=== PATIENT | male | born 1960 | race Caucasian/White ===

== ENCOUNTER 2020-07-19 10:28 | Outpatient (REF) | payer OTHER, SELFPAY ==
[2020-07-19 13:22] LABS: Vitamin B12 777 pg/mL (200-900)
== END 2020-07-19 10:29 | disposition home or self-care (01) ==
LOC: HO.LAB 10:28
PROVIDERS: Visit Provider Psychiatry & Neurology Neurology
DX: G93.40 Encephalopathy, unspecified (principal)
CPT/HCPCS: 36415; 82607

== ENCOUNTER 2024-12-12 21:53 | Emergency (ER) | payer OTHER, SELFPAY ==
[2024-12-12 21:57] VITALS: BP 144/84; PULSE 77; O2SAT 97
[2024-12-12 21:58] VITALS: BP 168/72; PULSE 89; RESP 20; TEMP 37.1; O2SAT 99; BMI 42.8
--- OUTSIDE RECORDS SUMMARY | 2024-12-13 01:25 | XMS_ITS | Encounter Summary ---
Author Organization [facility] Address [address] [place] [address] Care Team Providers Care Intake Man Name Role Phone Heaven Sherman MD Primary Care Provider Nawaf Arrieta MD Unavailable [phone] Vanesa Juárez NP Unavailable [phone] Nicole Conroy Primary Care Provider Emily verdugo Encounter Details Date Type Department Care Team Description 02/28/2023 [facility] Medical Records [address] [place] [address] Social History Tobacco Use Types Packs/Day Years Used Date Smoking Tobacco: Some Days Cigarettes 1 30 Last attempted to quit: 01/16/2011 Vapor Passive Smoke Exposure: Past Smokeless Tobacco: Never Comments:Vapes occasionally Alcohol Use Standard Drinks/Week Comments Yes 0 (1 standard drink = 0.6 oz pur e alcohol) occ Sex Assigned at Date Recorded Not on file documented as of this encounter Plan of Treatment Not on file documented as of this encounter Procedures Procedure Name Priority Date/Time Associated Diagnosis Comments OUTSIDE VASCULAR STUDY Routine 02/28/2023 documented in this encounter Results * OUTSIDE VASCULAR STUDY (02/28/2023) Provider Abstract CARDIOLOGY documented in this encounter Visit Diagnoses Not on filedocumented in this encounter Care Teams Intake Man Relationship Specialty Start Date End Date Heaven Sherman MD PCP - General Internal Medicine 08/03/22 07/06/24 Nicole Conroy [address] [place] [address] [address] [place] [address] PCP - General Internal Medicine 07/07/24 Nawaf Austin MD [address] [place] [address] [address] [place] [address] Knife Edger Cardiovascular Disease 02/06/23 Vanesa Juárez NP [address] [place] [address] DRIVE [address] [place], [place] [id number] Nurse Practitioner Cardiology 07/07/24 documented as of this encounter"
--- OUTSIDE RECORDS SUMMARY | 2024-12-13 01:25 | XMS_ITS | Encounter Summary ---
Author Organization [facility] Address [address] [place] [address] Care Team Providers Care Baker Bench Name Role Phone Heaven Sherman MD Primary Care Provider Gladis Brooks Primary Care Provider Heaven Morales MD Primary Care Provider Unavaila Juana Markham MD Primary Care Provider [phone] Heaven Sherman MD Primary Care Provider Unavaila Nawaf Rodriguez MD Unavailable [phone] Vanesa Juárez NP Unavailable [phone] Nicole Conroy Primary Care Provider Unavaila lucina Encounter Details Date Type Department Care Team Description 11/16/2015 Hospital Medical Records [address] [place] [address] Tello Mendez Social History Tobacco Use Types Packs/Day Years [...] on file documented as of this encounter Visit Diagnoses Not on filedocumented in this encounter Care Teams Baker Bench Relationship Specialty Start Date End Date Heaven Sherman MD PCP - General Internal Medicine 11/2/15 2/27/17 [facility], Pcp PCP - General Internal Medicine 12/12/16 08/12/18 Heaven Sherman MD PCP - General Internal Medicine 08/13/18 01/03/21 Juana Levy MD [address] [place] [address] PCP - General Internal Medicine 01/04/21 08/02/22 Heaven Sherman MD [address] [place] [address] PCP - General Internal Medicine 08/03/22 07/06/24 Nicole Conroy [address] [place] [address] [address] [place] [address] PCP - General Internal Medicine 07/07/24 Nawaf Austin MD [address] [place] [address] [address] [place] [address] Electric Organ Inspector And Repairer Cardiovascular Disease 02/06/23 Vanesa Juárez NP [address] [place] [address] [address]IVE [address] [place] [address] Nurse Practitioner Cardiology 07/07/24 documented as of this encounter
--- OUTSIDE RECORDS SUMMARY | 2024-12-13 01:25 | XMS_ITS | Encounter Summary ---
Author Organization [facility] Address [address] [place] [address] Care Team Providers Care Camera Operator Name Role Phone Juana Levy MD Primary Care Provider [phone] Heaven Sherman MD Primary Care Provider Unavaila Nawaf Rodriguez MD Unavailable [phone] Vanesa Juárez NP Unavailable [phone] Nicole Conroy Primary Care Provider Unavaila lucina Encounter Details Date Type Department Care Team Description 01/23/2022 Orders Only Medical Records [address] [place] [address] Jorge Luis Freed MD [address] [place] [address] [address] [place], [place] [id number] Social History Tobacco Use Types Packs/Day Years Used Date Smoking Tobacco: Former Cigarettes 1 30 Q uit: 01/16/2011 Smokeless Tobacco: Never Comments:started smoking at 15 Alcohol Use Standard Drinks/Week Comments No 0 (1 standard drink = 0.6 oz pur e alcohol) Sex Assigned at Date Recorded Not on file COVID-19 Exposure Response Date Recorded In the last 10 days, have yo u been in contact with someone who was confirmed or suspected to have Coronavirus/COVID-19? No / Unsure 01/02/2022 9:51 AM EDT documented as of this encounter Plan of Treatment Not on file documented as of this encounter Procedures Procedure Name Priority Date/Time Associated Diagnosis Comments OUTSIDE PATHOLOGY Routine 01/11/2022 documented in this encounter Results * OUTSIDE PATHOLOGY (01/11/2022) Jorge Luis Freed MD OUTSIDE LAB documented in this encounter Visit Diagnoses Not on filedocumented in this encounter Care Teams Camera Operator Relationship Specialty Start Date End Date Juana Levy MD [address] [place] [address] PCP - General Internal Medicine 01/04/21 08/02/22 Heaven Sherman MD [address] [place] [address] PCP - General Internal Medicine 08/03/22 07/06/24 Nicole Conroy [address] [place] [address] [address] [place] [address] PCP - General Internal Medicine 07/07/24 Nawaf Austin MD [address] [place] [address] [place] [address] Label Stitcher Cardiovascular Disease 02/06/23 Vanesa Juárez NP [address] [place] [address] [address] [place] [address] Nurse Practitioner Cardiology 07/07/24 documented as of this encounter
--- OUTSIDE RECORDS SUMMARY | 2024-12-13 01:25 | XMS_ITS | Encounter Summary ---
Author Organization [facility] Address [address] [place] [address] Care Team Providers Care Munitions Factory Worker Name Role Phone Hood Ernst MD Primary Care Provider Unavail able Heaven Sherman MD Primary Care Provider Unavaila lucina Cabrera, Pcp Primary Care Provider UnavailHeaven Morales MD Primary Care Provider Unavaila ble Juana Levy MD Primary Care Provider [phone] Heaven Sherman MD Primary Care Provider Unavaila Nawaf Rodriguez MD Unavailable [phone] Vanesa Juárez NP Unavailable [phone] Nicole Conroy Primary Care Provider Unavaila ble Encounter Details Date Type Department Care Team Description 06/23/2015 Hospital Medical Records [address] [place] [address] Tea Brandt MD Social History Tobacco Use Types Packs/Day Years [...] on filedocumented in this encounter Care Teams Munitions Factory Worker Relationship Specialty Start Date End Date Hood Ernst MD PCP - General 01/02/00 08/15/15 Heaven Sherman MD PCP - General Internal Medicine 08/16/15 12/11/16 [facility], Pcp PCP - General Internal Medicine 12/12/16 08/12/18 Heaven Sherman MD PCP - General Internal Medicine 08/13/18 01/03/21 Juana Levy MD [address] [place] [address] PCP - General Internal Medicine 01/04/21 08/02/22 Heaven Sherman MD [address] [place] [address] PCP - General Internal Medicine 08/03/22 07/06/24 Nicole Conroy [address] [place] [address] [address] [place] [address] PCP - General Internal Medicine 07/07/24 Nawaf Austin MD [address] [place] [address] [address] [place] [address] Boilers Inspector Cardiovascular Disease 02/06/23 Vanesa Juárez NP [address] [place] [address] [address] [place] [address] Nurse Practitioner Cardiology 07/07/24 documented as of this encounter
--- OUTSIDE RECORDS SUMMARY | 2024-12-13 01:25 | XMS_ITS | Encounter Summary ---
Author Organization [facility] Address [address] [place] [address] Care Team Providers Care Director Of Corporate Marketing Name Role Phone Hood Ernst MD Primary Care Provider Unavail able Heaven Sherman MD Primary Care Provider Unavaila Gladis Teague Primary Care Provider Heaven Morales MD Primary Care Provider Unavaila Juana Markham MD Primary Care Provider [phone] Heaven Sherman MD Primary Care Provider Unavaila Nawaf Rodriguez MD Unavailable Vanesa Juárez NP Unavailable [phone] Nicole Conroy Primary Care Provider Unavaila lucina Encounter Details Date Type Department Care Team Description 04/30/2009 [facility] Medical Records [address] [place] [address] Social History Tobacco Use Types Packs/Day Years [...] on filedocumented in this encounter Care Teams Director Of Corporate Marketing Relationship Specialty Start Date End Date Hood Ernst MD PCP - General 01/02/00 08/15/15 Heaven Sherman MD PCP - General Internal Medicine 08/16/15 12/11/16 [facility], Pcp PCP - General Internal Medicine 12/12/16 08/12/18 Heaven Sherman MD PCP - General Internal Medicine 08/13/18 01/03/21 Juana Levy MD [address] [place] [address] PCP - General Internal Medicine 01/04/21 08/02/22 Heaven Sherman MD [address] [place] [address] PCP - General Internal Medicine 08/03/22 07/06/24 Nicole Conroy [address] [place] [address] [address] [place] [address] PCP - General Internal Medicine 07/07/24 Nawaf Austin MD [address] [place] [address] [address] [place] [address] Denitrator Cardiovascular Disease 02/06/23 Vanesa Juárez NP [address] [place] [address] [address] [place] [address] Nurse Practitioner Cardiology 07/07/24 documented as of this encounter
--- OUTSIDE RECORDS SUMMARY | 2024-12-13 01:25 | XMS_ITS | Encounter Summary ---
Author Organization [facility] Address [address] [place] [address] Care Team Providers Care Vet Assistant Name Role Phone Heaven Sherman MD Primary Care Provider Unavaila lucina Cabrera, Pcp Primary Care Provider UnavailHeaven Morales MD Primary Care Provider Unavaila Juana Markham MD Primary Care Provider [phone] Heaven Sherman MD Primary Care Provider Unavaila ble Nawaf Austin MD Unavailable [phone] Vanesa Juárez NP Unavailable [phone] Nicole Conroy Primary Care Provider Unavaila ble Encounter Details Date Type Department Care Team Description 08/31/2015 Hospital Medical Records [address] [place] [address] Robbin Mazariegos [address] [place] [address], [address] [place] [address] Social History Tobacco Use Types Packs/Day Years Used Date Smoking Tobacco: Some Days Cigarettes 30 Last attempted to quit: 01/16/2011 Vapor [...] on filedocumented in this encounter Care Teams Vet Assistant Relationship Specialty Start Date End Date Heaven Sherman MD PCP - General Internal Medicine 08/16/15 12/11/16 [facility] PCP - General Internal Medicine 12/12/16 08/12/18 Heaven Sherman MD PCP - General Internal Medicine 08/13/18 01/03/21 Juana Levy MD [address] [place] [address] PCP - General Internal Medicine 01/04/21 08/02/22 Heaven Sherman MD [address] [place] [address] PCP - General Internal Medicine 08/03/22 07/06/24 Nicole Conroy [address] [place] [address] [address] [place] [address] PCP - General Internal Medicine 07/07/24 Nawaf Austin MD [address] [place] [address] [address] [place] [address] Production Sampler Cardiovascular Disease 02/06/23 Vanesa Juárez NP [address] [place] [address] [address] [place] [address] Nurse Practitioner Cardiology 07/07/24 documented as of this encounter
--- OUTSIDE RECORDS SUMMARY | 2024-12-13 01:25 | XMS_ITS | Encounter Summary ---
Author Organization [facility] [place] [address] Care Team Providers Care Counter Attendant Name Role Phone Nicole Conroy MD Primary Care Provider Reason for Visit * Reason Onset Date Comments Hypotension 10/17/2024 blood pressure 10/17/2024 Blood pressure Encounter Details Date Type Department Care Team (Late st Contact Info) Description 10/17/2024 Telephone [facility] [address] [place] [address] Nawaf Austin MD [address] [place] [address] [address] [place], [place] [id number] Hypotension; blood pressure (Blood pressure ) Social History Tobacco Use Types Packs/Day Years Used Date Smoking Tobacco: Former Cigarettes Q uit: 01/16/2011 Smokeless Tobacco: Never Alcohol Use Standard Drinks/Week Comments Yes 0 (1 standard drink = 0.6 oz pur e alcohol) rarely Interpersonal Safety Answer Date Record ed Physical Abuse 11/04/2024 Verbal Abuse 11/04/2024 Sex and Gender Information Value Date Recorded Sex Assigned at Male 11/04/2024 12:07 PM EST Legal Sex Male 2:23 AM EST Gender Identity Male 11/04/2024 12:07 PM EST Sexual Orientation Not on file documented as of this encounter Progress Notes * Nawaf Austin MD - 10/27/2024 5:44 PM EST Patient's had several CAT scans of the abdomen including the kidneys with no evidence of masses. Patient is also been seen by his urologist * Nawaf Austin MD - 10/23/2024 4:01 PM EST Patient's ultrasound of his kidney showed a slight vascular mass he is scheduled to see urology this week. He is also noted to have a blood pressure 130 systolic today * Grace Sumner RN - 10/21/2024 4:17 PM EST ANUMI... I spoke to Roberto Carlos. He stopped taking Oxycodone for back pain as he was afraid it was lowering his BP too much. Pt self increased Losartan back to 50 mg daily over the weekend for elevated BP. He provided some readings from Sunday and Sunday with no exact times- BP 158/86, HR 84 bpm, BP 152/93, HR 87 bpm, BP 156/87, HR 87 bpm. I advised pt that increased pain can cause elevated blood pressures and that he should contact the prescriber of the Oxycodone to see if an alternative medicationcan be prescribed. Today, pt was cleaning his kitchen, heard a snap, then experienced severe back pain. His BP 30 minutes ago was 170/100. He denies chest discomfort, shortness of breath, and sudden vision changes. Pt reports worsening tinnitus today. Roberto Carlos informed me he is planning on going to [facility] this evening for evaluation of back pain. * Vaishali Martinez - 10/21/2024 3:53 PM EST Roberto Carlos did call back , Please call [phone] Alexander * Garce Sumner RN - 10/21/2024 2:48 PM EST I left a message on machine for call back. * Vaishali Martinez - 10/21/2024 2:20 PM EST Roberto Carlos called. He stated that he figured out what was causing his low blood pressure . He stopped taking the narcotics for his back 3 days ago . His Blood pressure is now back to 160`s 170`s --over 90--100 Karenm * Grace Sumner RN - 10/17/2024 4:36 PM EST Spoke to Roberto Carlos and he is agreeable to decrease Losartan to 25 mg daily. Med module updated. * Nawaf Austin MD - 10/17/2024 4:31 PM EST Have him decrease losartan to 25mg a day * Grace Sumner RN - 10/17/2024 3:01 PM EST I called Roberto Carlos. His BP is now 116/66, HR 88 bpm. He mentioned he hasn't been drinking enough water. I advised pt to maintain adequate hydration going forward. Currently, he is laying down. About a half hour ago when he stood up, he felt very dizzy, fatigued, and spacey. He denied presyncope and syncope. Educated pt to change positions slowly. He takes his medications as prescribed, including Losartan 50 mg daily. Pt educated to seek emergent care if he experiences severe dizziness, presyncope, or syncope. He is pending an office visit on 12/26/24 and was last seen in office 09/30/24. Do you have additional recommendations at this time? * Simin Chris - 10/17/2024 1:17 PM EST The patient called, he took hs blood pressure 3 times in the last hour and it is reading around 80/40. He is having a lot of fatigue and is very spacey His has also been dry for the last several days. Please call him back at [phone]. documented in this encounter Plan of Treatment Upcoming Encounters Date Type Department Care Team (Late st Contact Info) Description 12/26/2024 7:50 AM EDT Office Visit [facility] - [address] [place] [address] Nawaf Austin MD [address] [place] [address] [address] [place] [address] documented as of this encounter Visit Diagnoses Not on filedocumented in this encounter Care Teams Counter Attendant Relationship Specialty Start Date End Date Nicole Cnoroy MD [address] [place] [address] PCP - General Internal Medicine 09/30/24 documented as of this encounter
--- OUTSIDE RECORDS SUMMARY | 2024-12-13 01:25 | XMS_ITS | Encounter Summary ---
Author Organization [facility] Address [address] [place] [address] Care Team Providers Care Ccnp Name Role Phone Juana Levy MD Primary Care Provider [phone] Heaven Sherman MD Primary Care Provider Unavaila Nawaf Rodriguez MD Unavailable [phone] Vanesa Juárez NP Unavailable [phone] Nicole Conroy Primary Care Provider Unavaila lucina Encounter Details Date Type Department Care Team Description 02/13/2022 [facility] Medical Records [address] [place] [address] Olegario Arvizu MD, PHD Social History Tobacco Use Types Packs/Day Years Used Date Smoking Tobacco: Former Cigarettes 1 30 Q uit: 01/16/2011 Smokeless Tobacco: Never Comments:started smoking at 15 Alcohol Use Standard Drinks/Week Comments No 0 (1 standard drink = 0.6 oz pur e alcohol) Sex Assigned at Date Recorded Not on file COVID-19 Exposure Response Date Recorded In the last 10 days, have rios mccormack been in contact with someone who was confirmed or suspected to have Coronavirus/COVID-19? Unable to assess 02/10/2022 7:55 AM EDT documented as of this encounter Plan of Treatment Not on file documented as of this encounter Procedures Procedure Name Priority Date/Time Associated Diagnosis Comments OUTSIDE CT Routine 02/13/2022 documented in this encounter Results * OUTSIDE CT (02/13/2022) Provider Abstract RADIOLOGY documented in this encounter Visit Diagnoses Not on filedocumented in this encounter Care Teams Ccnp Relationship Specialty Start Date End Date Juana Levy MD [address] [place] [address] PCP - General Internal Medicine 01/04/21 08/02/22 Heaven Sherman MD [address] [place] [address] PCP - General Internal Medicine 08/03/22 07/06/24 Nicole Conroy [address] [place] [address] [address] [place] [address] PCP - General Internal Medicine 07/07/24 Nawaf Austin MD [address] [place] [address] [address] [place] [address] Director Of Solutions Architecture Cardiovascular Disease 02/06/23 Vanesa Juárez NP [address] [place] [address] [address] [place] [address] Nurse Practitioner Cardiology 07/07/24 documented as of this encounter
--- OUTSIDE RECORDS SUMMARY | 2024-12-13 01:25 | XMS_ITS | Encounter Summary ---
Author Organization [facility] Address [address] [place] [address] Care Team Providers Care Bisque Cleaner Name Role Phone Juana Levy MD Primary Care Provider [phone] Heaven Sherman MD Primary Care Provider Unavaila Nawaf Rodriguez MD Unavailable [phone] Vanesa Juárez NP Unavailable [phone] Nicole Conroy Primary Care Provider Unavaila lucina Encounter Details Date Type Department Care Team Description 01/11/2022 Hospital Medical Records [address] [place] [address] Jorge Luis Freed MD [address] [place] [address] [address] [place] [address] Social History Tobacco Use Types Packs/Day Years [...] on filedocumented in this encounter Care Teams Bisque Cleaner Relationship Specialty Start Date End Date Juana Levy MD [address] [place] [address] PCP - General Internal Medicine 01/04/21 08/02/22 Heaven Sherman MD [address] [place] [address] PCP - General Internal Medicine 08/03/22 07/06/24 Nicole Conroy [address] [place] [address] [address] [place] [address] PCP - General Internal Medicine 07/07/24 Nawaf Austin MD [address] [place] [address] [place] [address] Dental Appliance Mechanic Cardiovascular Disease 02/06/23 Vanesa Juárez NP [address] [place] [address] [place] [address] Nurse Practitioner Cardiology 07/07/24 documented as of this encounter
--- OUTSIDE RECORDS SUMMARY | 2024-12-13 01:25 | XMS_ITS | Encounter Summary ---
Author Organization [facility] Address [address] [place] [address] Care Team Providers Care Carton Catcher Name Role Phone Heaven Sherman MD Primary Care Provider Emily Cabrera, Pcp Primary Care Provider Heaven Morales MD Primary Care Provider Unavaila Juana Markham MD Primary Care Provider [phone] Heaven Sherman MD Primary Care Provider Unavaila Nawaf Rodriguez MD Unavailable [phone] Vanesa Juárez NP Unavailable [phone] Nicole Conroy Primary Care Provider Unavaila lucina Encounter Details Date Type Department Care Team Description 11/12/2015 Home Health Certification Medical Records [address] [place] [address] Vna Social History Tobacco Use Types Packs/Day Years Used Date Smoking Tobacco: Former Cigarettes 1 30 Q uit: 01/16/2011 Smokeless Tobacco: Former Comments:started smoking at 15 Alcohol Use Standard Drinks/Week Comments No 0 (1 standard drink = 0.6 oz pur e alcohol) Sex Assigned at Date Recorded Not on file documented as of this encounter Plan of Treatment Not on file documented as of this encounter Visit Diagnoses Not on filedocumented in this encounter Care Teams Carton Catcher Relationship Specialty Start Date End Date Heaven Sherman MD PCP - General Internal Medicine 08/16/15 12/11/16 [facility], Pcp PCP - General Internal Medicine 12/12/16 08/12/18 Heaven Sherman MD PCP - General Internal Medicine 08/13/18 01/03/21 Juana Levy MD [address] [place] [address] PCP - General Internal Medicine 01/04/21 08/02/22 Heaven Sherman MD [address] [place] [address] PCP - General Internal Medicine 08/03/22 07/06/24 Nicole Conroy [address] [place] [address] [address] [place] [address] PCP - General Internal Medicine 07/07/24 Nawaf Austin MD [address] [place] [address] [address] [place] [address] Hotel Assistant Manager Cardiovascular Disease 02/06/23 Vanesa Juárez NP [address] [place] [address] [address] [place] [address] Nurse Practitioner Cardiology 07/07/24 documented as of this encounter
--- OUTSIDE RECORDS SUMMARY | 2024-12-13 01:25 | XMS_ITS | Encounter Summary ---
Author Organization [facility] Address [address] [place] [address] Care Team Providers Care Transplant Case Manager Name Role Phone Hood Ernst MD Primary Care Provider Unavail able Heaven Sherman MD Primary Care Provider Unavaila lucina Cabrera, Pcp Primary Care Provider UnavailHeaven Morales MD Primary Care Provider Unavaila ble Juana Levy MD Primary Care Provider [phone] Heaven Sherman MD Primary Care Provider Unavaila ble Nawaf Austin MD Unavailable [phone] Vanesa Juárez NP Unavailable [phone] Nicole Conroy Primary Care Provider Unavaila ble Encounter Details Date Type Department Care Team Description 09/08/2009 Hospital Medical Records [address] [place] [address] Selvin Diop [address] [place] [address] [address] [place] [address] Social History Tobacco Use Types Packs/Day Years [...] on filedocumented in this encounter Care Teams Transplant Case Manager Relationship Specialty Start Date End Date Hood Ernst MD PCP - General 01/02/00 08/15/15 Heaven Sherman MD PCP - General Internal Medicine 08/16/15 12/11/16 [facility], Pcp PCP - General Internal Medicine 12/12/16 08/12/18 Heaven Sherman MD PCP - General Internal Medicine 08/13/18 01/03/21 Juana Levy MD [address] [place] [address] PCP - General Internal Medicine 01/04/21 08/02/22 Heaven Sherman MD [address] [place] [address] PCP - General Internal Medicine 08/03/22 07/06/24 Nicole Conroy [address] [place] [address] [address] [place] [address] PCP - General Internal Medicine 07/07/24 Nawaf Austin MD [address] [place] [address] [address] [place] [address] Home Help Aide Cardiovascular Disease 02/06/23 Vanesa Juárez NP [address] [place] [address] [address] [place] [address] Nurse Practitioner Cardiology 07/07/24 documented as of this encounter
--- OUTSIDE RECORDS SUMMARY | 2024-12-13 01:25 | XMS_ITS | Encounter Summary ---
Author Organization [facility] Address [address] [place] [address] Care Team Providers Care Piece Goods Packer Name Role Phone Hood Ernst MD Primary Care Provider Unavail able Heaven Sherman MD Primary Care Provider Unavaila lucina [facility], Pcp Primary Care Provider UnavaileHaven Morales MD Primary Care Provider Unavaila ble Juana Levy MD Primary Care Provider [phone] Heaven Sherman MD Primary Care Provider Unavaila ble Nawaf Austin MD Unavailable [phone] Vanesa Juárez NP Unavailable [phone] Nicole Conroy Primary Care Provider Unavaila ble Reason for Visit * Reason Onset Date Comments Provider Call Back 06/22/2015 Encounter Details Date Type Department Care Team Description 06/22/2015 Telephone General Surgery [address] [place] [address] Tea Brandt MD Provider Call Back Social History Tobacco Use Types Packs/Day Years Used Date Smoking Tobacco: Former Cigarettes 1 30 Q uit: 01/16/2011 Smokeless Tobacco: Never Comments:started smoking at 15 Alcohol Use Standard Drinks/Week Comments No 0 (1 standard drink = 0.6 oz pur e alcohol) Sex Assigned at Date Recorded Not on file documented as of this encounter Miscellaneous Notes * Telephone Encounter - Tea Brandt MD - 06/23/2015 2:19 PM EDT Noted after the patient has received ancef. No side effects were noted. * Telephone Encounter - Yocasta Springer M.A. - 06/22/2015 3:24 PM EDT FYI routed to Dr.al-man viktor MACDONALD * Telephone Encounter - Silvia Lake - 06/22/2015 3:05 PM EDT [facility] calling about patient to make sure that Dr. Brandt is aware that he is allergic to penicillin prior to his surgery. [phone]. documented in this encounter Plan of Treatment Not on file documented as of this encounter Visit Diagnoses Not on filedocumented in this encounter Care Teams Piece Goods Packer Relationship Specialty Start Date End Date Hood Ernst MD PCP - General 01/02/00 08/15/15 Heaven Sherman MD PCP - General Internal Medicine 08/16/15 12/11/16 [facility], Pcp PCP - General Internal Medicine 12/12/16 08/12/18 Heaven Sherman MD PCP - General Internal Medicine 08/13/18 01/03/21 Juana Levy MD [address] [place] [address] PCP - General Internal Medicine 01/04/21 08/02/22 Heaven Sherman MD [address] [place] [address] PCP - General Internal Medicine 08/03/22 07/06/24 Nicole Conroy [address] [place] [address] [address] [place] [address] PCP - General Internal Medicine 07/07/24 Nawaf Austin MD [address] [place] [address] [address] [place] [address] Warehouse Stocker Cardiovascular Disease 02/06/23 Vanesa Juárez, GISSELLE [address] [place] [address] DRIVE [address] [place] [address] Nurse Practitioner Cardiology 07/07/24 documented as of this encounter
--- OUTSIDE RECORDS SUMMARY | 2024-12-13 01:25 | XMS_ITS | Encounter Summary ---
Author Organization [facility] Address [address] [place] [address] Care Team Providers Care Director Cloud Transformation Name Role Phone Juana Levy MD Primary Care Provider [phone] Heaven Sherman MD Primary Care Provider Unavaila Nawaf Rodriguez MD Unavailable [phone] Vanesa Juárez NP Unavailable [phone] Nicole Conroy Primary Care Provider Unavaila lucina Encounter Details Date Type Department Care Team Description 01/12/2022 [facility] Medical Records [address] [place] [address] Alyssa Soriano Social History Tobacco Use Types Packs/Day Years [...] Name Priority Date/Time Associated Diagnosis Comments OUTSIDE LAB Routine 01/12/2022 documented in this encounter Results * OUTSIDE LAB (01/12/2022) Provider Abstract LAB documented in this encounter Visit Diagnoses Not on filedocumented in this encounter Care Teams Director Cloud Transformation Relationship Specialty Start Date End Date Juana Levy MD [address] [place] [address] PCP - General Internal Medicine 01/04/21 08/02/22 Heaven Sherman MD [address] [place] [address] PCP - General Internal Medicine 08/03/22 07/06/24 Nicole Conroy [address] [place] [address] [address] [place] [address] PCP - General Internal Medicine 07/07/24 Nawaf Austin MD [address] [place] [address] [address] [place] [address] Cloth Sander Cardiovascular Disease 02/06/23 Vanesa Juárez NP [address] [place] [address] [address] [place] [address] Nurse Practitioner Cardiology 07/07/24 documented as of this encounter
--- OUTSIDE RECORDS SUMMARY | 2024-12-13 01:25 | XMS_ITS | Continuity of Care Document ---
Author Organization [facility] [place] [place] [facility] Address [address] [place] [address] Care Team Providers Care Financial Services Agent Name Role Phone HIM CCA OTHER PAULINE DUNBAR Primary Care Provider Assessment No assessment recorded. Plan of Treatment Reminders Order Date Submit Date Provider Last Modified By Organization Details Last Modified Time Details Appointments None recorded. Lab None recorded. Referral None recorded. Procedures None recorded. Surgeries None recorded. Imaging None recorded. Medication Orders ketorolac 15 mg/mL injection solution 2024 025 [facility] [address] [place] [address], [address], 5 20:55:23 Patient TargetsNo targets recorded. Patient InstructionsNo instructions recorded. Reason for Referral None Reported. Medical Equipment None Reported. Allergies Allergen ID Allergen Name Allergen Category Reaction Reaction Severity Criticality Documentation Date Start Date Code Code System Note Provider Name and Address Organization Details Recorded Time 5869 morphine medicatio n Not available Not available Not available 05/28/2024 7052 RxNorm Not Available [facility] - production 11:03:52 5870 Product containin g penicilli n (product) medicatio n Not available Not available Not available 05/28/2024 65842 8001 SNOMED Not Available [facility] - production 11:03:52 9983 iodine medicatio n Not available Not available Not available 08/15/2024 5933 RxNorm Not Available [facility] - production 4 10:47:06 Medications Name Sig Start Date Stop Date Status Note LastModified by Organization Details LastModified Time ziprasidon e 80 mg capsule TAKE 1 CAPSULE BY MOUTH TWICE DAILY WITH MEALS active Not Available Not Available No t Available furosemide 40 mg tablet TAKE 1 TABLET BY MOUTH DAILY active Not Available Not Available No t Available fluticason e 250 mcg-salmet george 50 mcg/dose blistr powdr for inhalation INHALE 1 PUFF BY MOUTH EVERY 12 HOURS active Not Available Not Available No t Available atorvastat in 80 mg tablet TAKE 1 TABLET BY MOUTH EVERY NIGHT AT BEDTIME active Not Available Not Available No t Available clonidine HCl 0.1 mg tablet TAKE 1 TABLET BY MOUTH AT BEDTIME NEEDED. TAKE IF SLEEP IS INTERRUPT ED active Not Available Not Available No t Available acetaminop hen 325 mg tablet TAKE 3 TABLETS BY MOUTH THREE TIMES A DAY FOR 14 DAYS IF TEMPERATU RE IS HIGHER THAN 100.5 active Not Available Not Available No t Available cetirizine 10 mg tablet TAKE 1 TABLET BY MOUTH EVERY DAY active Not Available Not Available No t Available amitriptyl ine 150 mg tablet TAKE 1 TABLET BY MOUTH DAILY AT BEDTIME FOR PAIN active Not Available Not Available No t Available amitriptyl ine 75 mg tablet TAKE 1 TABLET BY MOUTH EVERY NIGHT AT BEDTIME active Not Available Not Available No t Available tizanidine 4 mg tablet TAKE 1 TABLET BY MOUTH THREE TIMES DAILY NEEDED FOR MUSCLE SPASM active Not Available Not Available No t Available meloxicam 15 mg tablet TAKE 1 TABLET BY MOUTH DAILY. REPLACES DICLOFENA C active Not Available Not Available No t Available gabapentin 400 mg capsule TAKE 1 CAPSULE BY MOUTH THREE TIMES DAILY active Not Available Not Available No t Available oxcarbazep ine 300 mg tablet TAKE 1 TABLET BY MOUTH THREE TIMES DAILY active Not Available Not Available No t Available clopidogre l 75 mg tablet TAKE 1 TABLET BY MOUTH DAILY active Not Available Not Available No t Available omeprazole 40 mg capsule,de layed release TAKE 1 CAPSULE BY MOUTH TWICE DAILY 30 MINUTES BEFORE A MEAL active Not Available Not Available No t Available aspirin 81 mg tablet,del ayed release TAKE 1 TABLET BY MOUTH DAILY active Not Available Not Available No t Available tramadol 50 mg tablet TAKE 1 TABLET BY MOUTH EVERY 8 HOURS NEEDED FOR SEVERE PAIN active Not Available Not Available No t Available amitriptyl ine 50 mg tablet TAKE 2 TABLETS BY MOUTH DAILY AT BEDTIME active Not Available Not Available No t Available ketorolac 30 mg/mL (1 mL) injection solution Inject 30 mg by intramusc ular route. 2023 active Not Available Not Available Not Avai lable propranolo l 10 mg tablet TAKE 1 TABLET BY MOUTH TWICE DAILY active Not Available Not Available No t Available citalopram 20 mg tablet TAKE 1 TABLET BY MOUTH TWICE DAILY active Not Available Not Available No t Available potassium chloride ER 20 mEq tablet,ext ended release(pa rt/cryst) TAKE 1 TABLET BY MOUTH DAILY active Not Available Not Available No t Available amitriptyl ine 25 mg tablet TAKE 1 TABLET BY MOUTH DAILY AT BEDTIME FOR NERVE PAIN active Not Available Not Available No t Available tamsulosin 0.4 mg capsule TAKE 1 CAPSULE BY MOUTH EVERY NIGHT AT BEDTIME active Not Available Not Available No t Available amitriptyl ine 10 mg tablet TAKE 1 TABLET BY MOUTH DAILY AT BEDTIME FOR PAIN active Not Available Not Available No t Available baclofen 10 mg tablet TAKE 1 TABLET BY MOUTH THREE TIMES DAILY active Not Available Not Available No t Available cephalexin 500 mg capsule TAKE 1 CAPSULE BY MOUTH THREE TIMES DAILY FOR 7 DAYS active Not Available Not Available No t Available trazodone 150 mg tablet TAKE 2 TABLETS BY MOUTH AT BEDTIME active Not Available Not Available No t Available buspirone 30 mg tablet TAKE 1 TABLET BY MOUTH TWICE DAILY active Not Available Not Available No t Available esomeprazo le magnesium 40 mg capsule,de layed release TAKE 1 CAPSULE BY MOUTH TWICE DAILY active Not Available Not Available No t Available furosemide 20 mg tablet TAKE 1 TABLET BY MOUTH DAILY active Not Available Not Available No t Available ziprasidon e 40 mg capsule TAKE 1 CAPSULE BY MOUTH EVERY MORNING WITH MEALS active Not Available Not Available No t Available gabapentin 100 mg capsule TAKE 1 CAPSULE BY MOUTH THREE TIMES DAILY active Not Available Not Available No t Available lorazepam 1 mg tablet TAKE 1/2 TO 1 TABLET BY MOUTH EVERY 12 HOURS NEEDED FOR ANXIETY active Not Available Not Available No t Available albuterol sulfate HFA 90 mcg/actuat ion aerosol inhaler INHALE 2 PUFFS BY MOUTH EVERY 4 TO 6 HOURS NEEDED active Not Available Not Available No t Available fludrocort isone 0.1 mg tablet TAKE 1 TABLET BY MOUTH TWICE DAILY active Not Available Not Available No t Available finasterid e 5 mg tablet TAKE 1 TABLET BY MOUTH EVERY DAY active Not Available Not Available No t Available amoxicilli n 500 mg-potassi um clavulanat e 125 mg tablet active Not Available Not Available Not Available metoprolol tartrate 5 mg/5 mL intravenou s solution Inject 5 mg by intraveno us route. 2023 active requested medic give as slow ivp- he confirmed Not Available Not Available Not Available oxycodone 5 mg tablet TAKE 1 TABLET BY MOUTH DAILY AT BEDTIME NEEDED FOR SEVERE PAIN active Not Available Not Available No t Available Urinary Pain Relief 95 mg tablet TAKE 1 TABLET BY MOUTH TWICE DAILY X3 DAYS active Not Available Not Available No t Available metoprolol tartrate 25 mg tablet Take 1 tablet by oral route. 2023 active Not Available Not Available Not Avai lable duloxetine 30 mg capsule,de layed release TAKE 1 CAPSULE BY MOUTH EVERY DAY active Not Available Not Available No t Available tizanidine 4 mg capsule TAKE 2 CAPSULES BY MOUTH THREE TIMES DAILY FOR 5 DAYS NEEDED FOR SPASM active Not Available Not Available No t Available carisoprod ol 250 mg tablet TAKE 1 TABLETS BY MOUTH 2 TIMES PER DAY NEEDED FOR MUSCLE SPASM active Not Available Not Available No t Available oxycodone 10 mg tablet TAKE 1 TABLET BY MOUTH EVERY 8 HOURS FOR 7 DAYS NEEDED FOR PAIN NEEDED FOR ACUTE ON CHRONIC BACK PAIN active Not Available Not Available No t Available Incruse Ellipta 62.5 mcg/actuat ion powder for inhalation INHALE 1 PUFF BY MOUTH AT THE SAME TIME EVERY DAY active Not Available Not Available No t Available melatonin 10 mg-lemon balm leaf extract 1 mg tablet TAKE 1 TABLET BY MOUTH ONCE A DAY AT BEDTIME NEEDED FOR INSOMNIA active Not Available Not Available No t Available Vitals Date Recorded Heart rate Body weight Respiratory rate Oxygen saturation Oxygen saturation in Arterial blood by Pulse oximetry Body height Systolic blood pressure Diastolic blood pressure Provider Name and Address Organization Details Last Updated DateTime 5 90 /min 621467. 64 g 16 /min 97 % 97 % 175.26 cm 150 mm[Hg] 77 mm[Hg] Not Available [facility] - production 5 20:52:46 Social History None recorded. Functional Status None recorded. Mental Status None recorded. Family History Nothing Reported. Medical History No medical history recorded. Past Encounters Encounter ID Performer Location Encounter Start Date Encounter Closed Date Diagnosis/Indication Diagnosis SNOMED-CT Code Diagnosis ICD10 Code Diagnosis Note [id number] MARZENA CALHOUN MD [facility] - [facility] [address] [place] [address] 12/11/2024 20:52:44 12/12/2024 10:50:57 Thoracic back pain 856482241 M54.6 Evaluation in the field was performed by my education faculty member colleague, as noted above, I provided real-time direction and supervisio n for this visit. The evaluation revealed a 64-year-ol d male with a history of COPD/Asthm a, Severe Persistent Mental Illness , Hypertensi on, Hyperlipid emia, and Gastroesop hageal Reflux Disease with complains of back pain . Pt seen in the ED on 12/01. Per discharge paperwork: You were seen in the emergency department for your lower back pain. We did an MRI, as well as CAT scans, which were unremarkab le for anything acute. We advise that you follow up with your primary care doctor. Please return if your symptoms worsen. Pt was discharged on Methocarba mol and Naproxen.H e was seen again yesterday (no records available) and was given Valium and Oxycodone in the ER with relief. Walked 2 miles home after discharge, but pain has since worsened.H as Oxycodone and a muscle relaxer being delivered via [facility] on Sunday.C urrently taking Tylenol and Motrin.Las t Motrin dose ~9 hours ago.Denies history of CKD or GI bleed. Not on anticoagul ation. VS:BP: 150/77, HR: 90 , RR: 16 , SpO? : 97% on room airExam: AAO, NAD. No focal neurologic al deficits.A llergies reviewed. Impression :Acute on chronic back pain Plan:-Keto rolac 15 mg IM x 1 was administer ed-Patient advised not to take Ibuprofen at least until tomorrow. Can take Tylenol as needed.-Ad vised to start Oxycodone and muscle relaxer when delivered by the pharmacy.- Patient advised to follow up with PCP since would most likely benefit from physical therapy-Re d flags discussed with the patient including : Severe or progressiv e pain that does not improve with rest or pain management . Loss of bowel or bladder control , numbness or weakness in the legs or groin area, difficulty walking or standing, or inability to perform normal daily activities due to back pain. Primary care, considerPh ysical therapy Dispositio n: We discussed the diagnostic uncertaint y of home visits and the risk associated with this. In this case, the patient and I felt this to be an acceptable and reasonable amount of risk given the benefit of avoiding an ED visit. We discussed the need to seek care urgently/e mergently in the setting of any new or worsening serious symptoms, particular ly severe or progressiv e pain that does not improve with rest or pain management . Loss of bowel or bladder control , numbness or weakness in the legs or groin area, difficulty walking or standing, or inability to perform normal daily activities due to back pain. Health Concerns Section Related Observation LastModified by Organization Detai ls LastModified Time None Recorded Concern Status LastModified by Organization Details LastModified Time None Recorded Payers Encounter Date Sequence Insurance Name Policy Number Policy Peralta Covered Member ID Peralta Member ID Guarantor Name 12/11/2024 1 [facility] - DOS ON OR AFTER 2023 - DUAL ELIGIBLE - ALF OPTIONS AND ONE CARE (MEDICARE REPLACEMENT/ADV ANTAGE - HMO) Roberto Carlos Hall Jr [id number] Roberto Carlos Hall Jr Notes Date Note Type Note Provider Name and Address Organization Details Recorded Time 12/11/2024 text/html [facility] Nurse Triage Notes (Alyssa Cancino): Reason For Request: Patient has back pain. was in [facility] this morning, and had to walk 2 miles home, now has back pain.Denies: Falls with head strike and LOC Falls from a standing position, no LOC, patient is amnestic to the event Falls with isolated injury and deformity noted to limb Falls with inability to move post fall Cool extremities after fall or injury Chief Complaints: Back PainPMH: COPD/Asthma, Severe Persistent Mental Illness (SPMI), Hypertension, Hyperlipidemia, Gastroesophageal Reflux Disease (GERD), Tonsillectomy, Appendectomy, Cholecystectomy, Joint Replacement (e.g., Hip, Knee)PMH Reviewed at 12/11/2024 - 20:10Allergies Reviewed at 12/11/2024 - 20:10Comments: Patient reports exacerbation of back pain. Was in ER for back pain yesterday. Was in ER twice last week after a fall. Was given Valium and Oxycodone in the ER with relief. Walked 2 miles home after d/c and pain has started to get worse again. Has Oxycodone and muscle relaxer being delivered by [facility] on Sunday.Taking Tylenol and Motrin. Patient is requesting visit for Toradol injection. Education provided on the response time and the member was advised to monitor reported s/s and seek emergency treatment if needed. ...................... ...................... ...................... ...................... ...................... ...................... ......... Electric Dolly Operator Note From Hood eRnee: [facility] visit for male pt. Pt presents in bed at home complaining of back pain. Pt reports 15 year history of back pain with thoracic vertebral compression fractures and a disc issue as well. Pt was in ED yesterday for same issue with imagining done and d/c with oxycodone and valium. Pharmacy has not delivered medications yet. V/S taken as listed. Pt asking for shot of toradol. No ibuprofen in last 9 hours. Pt confirmed no contraindications for toradol. 15 mg given IM. Pt advised to not take any ibuprofen until tomorrow. Pt education provided. [facility] Medication Orders: ketorolac 15 mg/mL injection solution: Administered ...................... ...................... ...................... ...................... ...................... ...................... ......... [facility] Consulted: Marzena Calhoun ...................... ...................... ...................... ...................... ...................... ...................... ......... Disposition: Fulfilled MARZENA CALHOUN MD [address] [place] [address],[address], [place], [address], SANDRA - [employer] 12/11/2024 22:50:25
--- OUTSIDE RECORDS SUMMARY | 2024-12-13 01:25 | XMS_ITS | Encounter Summary ---
Author Organization [facility] Address [address] [place] [address] Care Team Providers Care Matchbook Maker Name Role Phone Heaven Sherman MD Primary Care Provider UnavailJuana Hawthorne MD Primary Care Provider [phone] Heaven Sherman MD Primary Care Provider Unavaila Nawaf Rodriguez MD Unavailable [phone] Vanesa Juárez NP Unavailable [phone] Nicole Conroy Primary Care Provider Unavaila lucina Encounter Details Date Type Department Care Team Description 03/24/2020 Career And Transition Teacher Report Medical Records [address] [place] [id number] Roberto Carlos Ordoñez Social History Tobacco Use Types Packs/Day Years [...] on filedocumented in this encounter Care Teams Matchbook Maker Relationship Specialty Start Date End Date Heaven Sherman MD PCP - General Internal Medicine 08/13/18 01/03/21 Juana Levy MD [address] [place] [address] PCP - General Internal Medicine 01/04/21 08/02/22 Heaven Sherman MD [address] [place] [address] PCP - General Internal Medicine 08/03/22 07/06/24 Nicole Conroy [address] [place] [address] [address] [place] [address] PCP - General Internal Medicine 07/07/24 Nawaf Austin MD [address] [place] [address] [address] [place] [address] Swing Grinder Cardiovascular Disease 02/06/23 Vanesa Juárez NP [address] [place] [address] [address] [place] [address] Nurse Practitioner Cardiology 07/07/24 documented as of this encounter
--- OUTSIDE RECORDS SUMMARY | 2024-12-13 01:25 | XMS_ITS | Encounter Summary ---
Author Organization [facility] Address [address] [place] [address] Care Team Providers Care Director Alliance Marketing Name Role Phone Juana Levy MD Primary Care Provider [phone] Heaven Sherman MD Primary Care Provider Unavaila Nawaf Rodriguez MD Unavailable [phone] Vanesa Juárez NP Unavailable [phone] Nicole Conroy Primary Care Provider Unavaildrew verdugo Encounter Details Date Type Department Care Team Description 12/28/2021 Orders Only Medical Records [address] [place] [id number] Abstract, Provider Social History Tobacco Use Types Packs/Day Years Used Date Smoking Tobacco: Former Cigarettes 1 30 Q uit: 01/16/2011 Smokeless Tobacco: Never Comments:started smoking at 15 Alcohol Use Standard Drinks/Week Comments No 0 (1 standard drink = 0.6 oz pur e alcohol) Sex Assigned at Date Recorded Not on file COVID-19 Exposure Response Date Recorded In the last month, have you been in contact with someone who was confirmed or suspected to have Coronavirus / COVID-19? No / Unsure 12/27/2021 3:53 PM EDT documented as of this encounter Plan of Treatment Not on file documented as of this encounter Procedures Procedure Name Priority Date/Time Associated Diagnosis Comments OUTSIDE PLAIN FILM Routine 12/28/2021 documented in this encounter Results * OUTSIDE PLAIN FILM (12/28/2021) Jorge Luis Freed MD RADIOLOGY documented in this encounter Visit Diagnoses Not on filedocumented in this encounter Care Teams Director Alliance Marketing Relationship Specialty Start Date End Date Juana Levy MD [address] [place] [address] PCP - General Internal Medicine 01/04/21 08/02/22 Heaven Sherman MD [address] [place] [address] PCP - General Internal Medicine 08/03/22 07/06/24 Nicole Conroy [address] [place] [address] [address] [place] [address] PCP - General Internal Medicine 07/07/24 Nawaf Austin MD [address] [place] [address] [address] [place] [address] Cupola Melter Helper Cardiovascular Disease 02/06/23 Vanesa Juárez NP [address] [place] [address] DRIVE [address] [place] [address] Nurse Practitioner Cardiology 07/07/24 documented as of this encounter
--- OUTSIDE RECORDS SUMMARY | 2024-12-13 01:25 | XMS_ITS | Encounter Summary ---
Author Organization [facility] Address [address] [place] [address] Care Team Providers Care Grease Worker Name Role Phone Heaven Sherman MD Primary Care Provider Unavaila lucina Cabrera Pcp Primary Care Provider Heaven Morales MD Primary Care Provider Unavaila Juana Markham MD Primary Care Provider [phone] Heaven Sherman MD Primary Care Provider Unavaila Nawaf Rodriguez MD Unavailable [phone] Vanesa Juárez NP Unavailable [phone] Nicole Conroy Primary Care Provider Unavaila lucina Encounter Details Date Type Department Care Team Description 10/25/2015 Transfer Records Medical Records [address] [place] [id number] [place] [address] Social History Tobacco Use Types Packs/Day Years [...] on filedocumented in this encounter Care Teams Grease Worker Relationship Specialty Start Date End Date Heaven Sherman MD PCP - General Internal Medicine 08/16/15 12/11/16 [facility], Pcp PCP - General Internal Medicine 12/12/16 08/12/18 Heaven Sherman MD PCP - General Internal Medicine 08/13/18 01/03/21 Juana Levy MD [address] [place] [address] PCP - General Internal Medicine 01/04/21 08/02/22 Heaven Sherman MD [address] [place] [address] PCP - General Internal Medicine 08/03/22 07/06/24 Nicole Conroy [address] [place] [address] [address] [place] [address] PCP - General Internal Medicine 07/07/24 Nawaf Austin MD [address] [place] [address] [address] [place] [address] Surgical Supplies Sterilizer Cardiovascular Disease 02/06/23 Vanesa Juárez NP [address] [place] [address] [address] [place] [address] Nurse Practitioner Cardiology 07/07/24 documented as of this encounter
--- OUTSIDE RECORDS SUMMARY | 2024-12-13 01:26 | XMS_ITS | Encounter Summary ---
Author Organization [facility] Address [address] [place] [address] Care Team Providers Care Correctional Agency Director Name Role Phone Heaven Sherman MD Primary Care Provider Nawaf Arrieta MD Unavailable [phone] Vanesa Juárez NP Unavailable Nicole Conroy Primary Care Provider Emily verdugo Encounter Details Date Type Department Care Team Description 01/01/2023 [facility] Medical Records [address] [place] [address] Social History Tobacco Use Types Packs/Day Years [...] Name Priority Date/Time Associated Diagnosis Comments OUTSIDE MRI/MRA Routine 01/03/2023 OUTSIDE LAB Routine 01/02/2023 OUTSIDE MRI/MRA Routine 01/01/[address] Routine 01/01/2023 documented in this encounter Results * OUTSIDE MRI/MRA (01/03/2023) Provider Abstract RADIOLOGY * OUTSIDE LAB (01/02/2023) Provider Abstract LAB * OUTSIDE MRI/MRA (01/01/2023) Provider Abstract RADIOLOGY * OUTSIDE CT (01/01/2023) Provider Abstract RADIOLOGY documented in this encounter Visit Diagnoses Not on filedocumented in this encounter Care Teams Correctional Agency Director Relationship Specialty Start Date End Date Heaven Sherman MD PCP - General Internal Medicine 08/03/22 07/06/24 Nicole Conroy [address] [place] [address] [address] [place] [address] PCP - General Internal Medicine 07/07/24 Nawaf Austin MD [address] [place] [place] [address] [address] [place] [address] Filter Tank Operator Cardiovascular Disease 02/06/23 Vanesa Juárez NP [address] [place] [place] [address] [address] [place] [address] Nurse Practitioner Cardiology 07/07/24 documented as of this encounter
--- OUTSIDE RECORDS SUMMARY | 2024-12-13 01:26 | XMS_ITS | Encounter Summary ---
Author Organization [facility] Address [address] [place] [address] Care Team Providers Care Temporary Receptionist Name Role Phone Heaven Sherman MD Primary Care Provider Nawaf Arrieta MD Unavailable [phone] Vanesa Juárez NP Unavailable [phone] Nicole Conroy Primary Care Provider Emily verdugo Encounter Details Date Type Department Care Team Description 06/05/2023 [facility] Medical Records [address] [place] [address] Mateoradhatroy Astrid Social History Tobacco Use Types Packs/Day Years [...] suspected to have Coronavirus/COVID-19? No / Unsure 06/04/2023 9:44 AM EDT documented as of this encounter Plan of Treatment Not on file documented as of this encounter Procedures Procedure Name Priority Date/Time Associated Diagnosis Comments TILT TABLE TEST Routine 06/05/2023 OUTSIDE EKG Routine 06/05/2023 documented in this encounter Results * OUTSIDE EKG (06/05/2023) Provider Default CARDIOLOGY * TILT TABLE TEST (06/05/2023) Provider Default OUTSIDE CARDIOLOGY documented in this encounter Visit Diagnoses Not on filedocumented in this encounter Care Teams Temporary Receptionist Relationship Specialty Start Date End Date Heaven Sherman MD PCP - General Internal Medicine 08/03/22 07/06/24 Nicole Conroy [address] [place] [address] [address] [place] [address] PCP - General Internal Medicine 07/07/24 Nawaf Austin MD [address] [place] [address] [address] [place] [address] Machine Sprayer Cardiovascular Disease 02/06/23 Vanesa Juárez NP [address] [place] [address] [place] [address] Nurse Practitioner Cardiology 07/07/24 documented as of this encounter
--- OUTSIDE RECORDS SUMMARY | 2024-12-13 01:26 | XMS_ITS | Encounter Summary ---
Author Organization [facility] Address [address] [place] [address] Care Team Providers Care Melangeur Operator Name Role Phone Heaven Sherman MD Primary Care Provider Nawaf Arrieta MD Unavailable [phone] Vanesa Juárez NP Unavailable [phone] Nicole Conroy Primary Care Provider Emily verdugo Encounter Details Date Type Department Care Team Description 04/07/2023 [facility] Medical Records [address] [place] [address] Abstract, Provider Social History Tobacco Use Types [...] Name Priority Date/Time Associated Diagnosis Comments OUTSIDE EKG Routine 04/07/2023 documented in this encounter Results * OUTSIDE EKG (04/07/2023) Provider Abstract CARDIOLOGY documented in this encounter Visit Diagnoses Not on filedocumented in this encounter Care Teams Melangeur Operator Relationship Specialty Start Date End Date Heaven Sherman MD PCP - General Internal Medicine 08/03/22 07/06/24 Nicole Conroy [address] [place] [address] [address] [place] [address] PCP - General Internal Medicine 07/07/24 Nawaf Austin MD [address] [place] [address] [address] [place] [address] Straddle Bug Operator Cardiovascular Disease 02/06/23 Vanesa Juárez NP [address] [place] [address] [address] [place], [place] [phone] Nurse Practitioner Cardiology 07/07/24 documented as of this encounter
--- OUTSIDE RECORDS SUMMARY | 2024-12-13 01:26 | XMS_ITS | Encounter Summary ---
Author Organization [facility] Address [address] [place] [address] Care Team Providers Care Sql Etl Developer Name Role Phone Heaven Sherman MD Primary Care Provider Nawaf Arrieta MD Unavailable [phone] Vanesa Juárez NP Unavailable [phone] Nicole Conroy Primary Care Provider Emily verdugo Encounter Details Date Type Department Care Team Description 03/19/2024 [facility] Medical Records [address] [place] [address] Social History Tobacco Use Types Packs/Day Years Used Date Smoking Tobacco: Former Cigarettes 1 30 Q uit: 01/16/2011 Smokeless Tobacco: Never Comments:started smoking at 15 Alcohol Use Standard Drinks/Week Comments Not Asked 0 (1 standard drink = 0.6 oz pur e alcohol) occ Sex Assigned at Date Recorded Not on file documented as of this encounter Plan of Treatment Not on file documented as of this encounter Procedures Procedure Name Priority Date/Time Associated Diagnosis Comments OUTSIDE EKG Routine 03/19/2024 OUTSIDE PLAIN FILM Routine 03/19/2024 documented in this encounter Results * OUTSIDE PLAIN FILM (03/19/2024) Provider Abstract RADIOLOGY * OUTSIDE EKG (03/19/2024) Provider Abstract CARDIOLOGY documented in this encounter Visit Diagnoses Not on filedocumented in this encounter Care Teams Sql Etl Developer Relationship Specialty Start Date End Date Heaven Sherman MD PCP - General Internal Medicine 08/03/22 07/06/24 Nicole Conroy [address] [place] [address] [address] [place] [address] PCP - General Internal Medicine 07/07/24 Nawaf Austin MD [address] [place] [address] [address] [place] [address] Descriptive Catalog Librarian Cardiovascular Disease 02/06/23 Vanesa Juárez NP [address] [place] [address] [address] [place] [address] Nurse Practitioner Cardiology 07/07/24 documented as of this encounter
--- OUTSIDE RECORDS SUMMARY | 2024-12-13 01:26 | XMS_ITS | Encounter Summary ---
Author Organization [facility] Address [address] [place] [address] Care Team Providers Care Cigar Making Supervisor Name Role Phone Heaven Sherman MD Primary Care Provider Nawaf Arrieta MD Unavailable [phone] Vanesa Juárez NP Unavailable [phone] Nicole Conroy Primary Care Provider Emily verdugo Encounter Details Date Type Department Care Team Description 11/26/2023 [facility] Medical Records [address] [place] [id number] [place] [address] Social History Tobacco Use Types Packs/Day Years Used Date Smoking Tobacco: Some Days Cigarettes 11 13 Last attempted to quit: 01/16/2011 Vapor Passive [...] on filedocumented in this encounter Care Teams Cigar Making Supervisor Relationship Specialty Start Date End Date Heaven Sherman MD PCP - General Internal Medicine 08/03/22 07/06/24 Nicole Conroy [address] [place] [address] [place] [address] PCP - General Internal Medicine 07/07/24 Nawaf Austin MD [address] [place] [address] [address] [place] [address] Saddle Stitcher Cardiovascular Disease 02/06/23 Vanesa Juárez NP [address] [place] [address] [address]IVE [address] [place] [address] Nurse Practitioner Cardiology 07/07/24 documented as of this encounter
--- OUTSIDE RECORDS SUMMARY | 2024-12-13 01:26 | XMS_ITS | Encounter Summary ---
Author Organization [facility] Address [address] [place] [address] Care Team Providers Care Retail Operations Manager Name Role Phone Heaven Sherman MD Primary Care Provider Nawaf Arrieta MD Unavailable [phone] Vanesa Juárez NP Unavailable [phone] Nicole Conroy Primary Care Provider Emily verdugo Encounter Details Date Type Department Care Team Description 03/13/2024 Kiln Stacker Report Medical Records [address] [place] [address] Tarah Umana Social History Tobacco Use Types Packs/Day Years [...] on filedocumented in this encounter Care Teams Retail Operations Manager Relationship Specialty Start Date End Date Heaven Sherman MD PCP - General Internal Medicine 08/03/22 07/06/24 Nicole Conryo [address] [place] [address] [place] [address] PCP - General Internal Medicine 07/07/24 Nawaf Austin MD [address] [place] [address] [place] [address] Spray Cementer Cardiovascular Disease 02/06/23 Vanesa Juárez NP [address] [facility] [address] [place] [address] Nurse Practitioner Cardiology 07/07/24 documented as of this encounter
--- OUTSIDE RECORDS SUMMARY | 2024-12-13 01:26 | XMS_ITS | Encounter Summary ---
Author Organization [facility] Address [address] [place] [address] Care Team Providers Care Commercial Lender Name Role Phone Hood Ernst MD Primary Care Provider Unavail able Heaven Sherman MD Primary Care Provider Unavaila lucina [facility], Pcp Primary Care Provider UnavailHeaven Morales MD Primary Care Provider Unavaila ble Juana Levy MD Primary Care Provider [phone] Heaven Sherman MD Primary Care Provider Unavaila ble Nawaf Austin MD Unavailable [phone] Vanesa Juárez NP Unavailable Nicole Conroy Primary Care Provider Unavaila ble Encounter Details Date Type Department Care Team Description 03/17/2014 Batch Records Clerk Report Medical Records [address] [place] [address] Federico Blankenship MD Social History Tobacco Use Types Packs/Day Years Used Date Smoking Tobacco: Former Cigarettes 1 30 Q uit: 01/16/2011 Smokeless Tobacco: Never Comments:started smoking at 15 Alcohol Use Standard Drinks/Week Comments No 0 (1 standard drink = 0.6 oz pur e alcohol) 1/month Sex Assigned at Date Recorded Not on file documented as of this encounter Plan of Treatment Not on file documented as of this encounter Visit Diagnoses Not on filedocumented in this encounter Care Teams Commercial Lender Relationship Specialty Start Date End Date Hood Ernst MD PCP - General 01/02/00 08/15/15 Heaven Sherman MD PCP - General Internal Medicine 08/16/15 12/11/16 [facility], [facility] PCP - General Internal Medicine 12/12/16 08/12/18 Heaven Sherman MD PCP - General Internal Medicine 08/13/18 01/03/21 Juana Levy MD [address] [place] [address] PCP - General Internal Medicine 01/04/21 08/02/22 Heaven Sherman MD [address] [place] [address] PCP - General Internal Medicine 08/03/22 07/06/24 Nicole Conroy [address] [place] [address] [address] [place] [address] PCP - General Internal Medicine 07/07/24 Nawaf Austin MD [address] [place] [address] [address] [place] [address] Box Blank Machine Feeder Cardiovascular Disease 02/06/23 Vanesa Juárez NP [address] [place] [address] [address] [place] [address] Nurse Practitioner Cardiology 07/07/24 documented as of this encounter
--- OUTSIDE RECORDS SUMMARY | 2024-12-13 01:26 | XMS_ITS | Encounter Summary ---
Author Organization [facility] Address [address] [place] [address] Care Team Providers Care Plant Biology Professor Name Role Phone Community, Pcp Primary Care Provider Heaven Morales MD Primary Care Provider Unavaila Juana Markham MD Primary Care Provider [phone] Heaven Sherman MD Primary Care Provider Unavaila Nawaf Rodriguez MD Unavailable [phone] Vanesa Juárez NP Unavailable Nicole Conroy Primary Care Provider Unavaila lucina Encounter Details Date Type Department Care Team Description 01/04/2017 Release of Information Medical Records [address] [place] [address] Abstract, Provider Social History Tobacco Use Types [...] on filedocumented in this encounter Care Teams Plant Biology Professor Relationship Specialty Start Date End Date Community, Pcp PCP - General Internal Medicine 12/12/16 08/12/18 Heaven Sheramn MD PCP - General Internal Medicine 08/13/18 01/03/21 Juana Levy MD [address] [place] [address] PCP - General Internal Medicine 01/04/21 08/02/22 Heaven Sherman MD [address] [place] [address] PCP - General Internal Medicine 08/03/22 07/06/24 Nicole Conroy [address] [place] [address] [place] [address] PCP - General Internal Medicine 07/07/24 Nawaf Austin MD [address] [place] [address] [place] [address] Therapist Radiation Cardiovascular Disease 02/06/23 Vanesa Juárez NP [address] [place] [address] [place] [address] Nurse Practitioner Cardiology 07/07/24 documented as of this encounter
--- OUTSIDE RECORDS SUMMARY | 2024-12-13 01:26 | XMS_ITS | Encounter Summary ---
Author Organization [facility] Address [address] [place] [address] Care Team Providers Care Graphic Engineer Name Role Phone Heaven Sherman MD Primary Care Provider Nawaf Arrieta MD Unavailable [phone] Vanesa Juárez NP Unavailable [phone] Nicole Conroy Primary Care Provider Emily verdugo Encounter Details Date Type Department Care Team Description 03/04/2024 [facility] Medical Records [address] [place] [address] Social History Tobacco Use Types Packs/Day Years [...] Date/Time Associated Diagnosis Comments OUTSIDE EKG Routine 03/04/[address] Routine 03/04/2024 OUTSIDE PLAIN FILM Routine 03/04/2024 documented in this encounter Results * OUTSIDE CT (03/04/2024) Provider Default RADIOLOGY * OUTSIDE PLAIN FILM (03/04/2024) Provider Default RADIOLOGY * OUTSIDE EKG (03/04/2024) Provider Default CARDIOLOGY documented in this encounter Visit Diagnoses Not on filedocumented in this encounter Care Teams Graphic Engineer Relationship Specialty Start Date End Date Heaven Sherman MD PCP - General Internal Medicine 08/03/22 07/06/24 Nicole Conroy [address] [place] [address] [address] [place] [address] PCP - General Internal Medicine 07/07/24 Nawaf Austin MD [address] [place] [address] [address] [place] [address] Plastic Sheets Supervisor Cardiovascular Disease 02/06/23 Vanesa Juárez NP [address] [place] [address] [place] [address] Nurse Practitioner Cardiology 07/07/24 documented as of this encounter
--- OUTSIDE RECORDS SUMMARY | 2024-12-13 01:26 | XMS_ITS | Encounter Summary ---
Author Organization [facility] Address [address] [place] [address] Care Team Providers Care Tobacco Sampler Name Role Phone Community, Pcp Primary Care Provider Heaven Morales MD Primary Care Provider Unavaila Juana Markham MD Primary Care Provider [phone] Heaven Sherman MD Primary Care Provider Unavaila Nawaf Rodrgiuez MD Unavailable Vanesa Juárez NP Unavailable [phone] Nicole Conroy Primary Care Provider Unavaila lucina Encounter Details Date Type Department Care Team Description 02/14/2018 It Service Technician Report Medical Records [address] [place] [address] Danny Varner Social History Tobacco Use Types Packs/Day Years [...] on filedocumented in this encounter Care Teams Tobacco Sampler Relationship Specialty Start Date End Date Community, Pcp PCP - General Internal Medicine 12/12/16 08/12/18 Heaven Sherman MD PCP - General Internal Medicine 08/13/18 01/03/21 Juana Levy MD [address] [place] [address] PCP - General Internal Medicine 01/04/21 08/02/22 Heaven Sherman MD [address] [place] [address] PCP - General Internal Medicine 08/03/22 07/06/24 Nicloe Conroy [address] [place] [address] [place] [address] PCP - General Internal Medicine 07/07/24 Nawaf Austin MD [address] [place] [address] [place] [address] Wool Hat Forming Machine Tender Cardiovascular Disease 02/06/23 Vanesa Juárez NP [address] [place] [address] [place] [address] Nurse Practitioner Cardiology 07/07/24 documented as of this encounter
--- OUTSIDE RECORDS SUMMARY | 2024-12-13 01:26 | XMS_ITS | Encounter Summary ---
Author Organization [facility] [place] [address] Care Team Providers Care 911 Emergency Dispatcher Name Role Phone Nicole Conroy MD Primary Care Provider Encounter Details Date Type Department Care Team (Late st Contact Info) Description 11/14/2024 Lab Requisition [facility] [address] [facility] [place] [address] Alba Adams MD [address] [place] [address] Other seizures (CMS/HCC); Essential (primary) hypertension; Anemia, unspecified Social History Tobacco Use Types Packs/Day Years [...] as of this encounter Plan of Treatment Upcoming Encounters Date Type Department Care Team (Late Contact Info) Description 12/26/2024 7:50 AM EDT Office Visit [facility] [address] [place] [address] Nawaf Austin MD [address] [place] [address] [address] [place] [address] documented as of this encounter Procedures Procedure Name Priority Date/Time Associated Diagnosis Comments BASIC METABOLIC PANEL Routine 11/17/2024 7:09 AM EST Other seizures (CMS/HCC) Essential (primary) hypertension Anemia, unspecified COMPLETE BLOOD COUNT Routine 11/17/2024 7:00 AM EST Other seizures (CMS/HCC) Essential (primary) hypertension Anemia, unspecified documented in this encounter Results * (ABNORMAL) Basic metabolic panel (11/17/2024 7:09 AM EST) Sodium 129(L) 133 - 145 mmol/L LAB CHEMISTRY METHOD 11/17/2024 3:51 PM [facility] Potassium 4.8 3.5 - 5.5 mmol/L LAB CHEMISTRY METHOD 11/17/2024 3:51 PM [facility] Chloride 94(L) 96 - 110 mmol/L LAB CHEMISTRY METHOD 11/17/2024 3:51 PM [facility] CO2 24 21 - 32 mmol/L LAB CHEMISTRY METHOD 11/17/2024 3:51 PM [facility] Anion Gap 11 3 - 11 LAB CHEMISTRY METHOD 11/17/2024 3:51 PM [facility] Glucose 83 70 - 100 mg/dL LAB CHEMISTRY METHOD 11/17/2024 3:51 PM [facility] BUN 12 5 - 25 mg/dL LAB CHEMISTRY METHOD 11/17/2024 3:51 PM [facility] Creatinine 0.80 0.70 - 1.30 mg/dL LAB CHEMISTRY METHOD 11/17/2024 3:51 PM [facility] eGFR 100 >=60 mL/min/1. 73m2 LAB CHEMISTRY METHOD 11/17/2024 3:51 PM EST [facility] Comment:Calculation based on the??Chronic Kidney Disease Epidemiology Collaboration (CKD-EPI) equation refit??without adjustment for race. BUN/Creatinine Ratio 15.0 LAB CHEMISTRY METHOD 11/17/2024 3:51 PM [facility] Calcium 9.3 8.5 - 10.5 mg/dL LAB CHEMISTRY METHOD 11/17/2024 3:51 PM [facility] Blood Venous blood specimen / Unknown Venipuncture / Unknown 11/17/2024 7:09 AM EST 11/17/2024 10:44 AM EST Alba Adams MD LAB BLOOD ORDERABLES Final Resul t [facility] [address] [place] [address], * (ABNORMAL) Complete blood count (11/17/2024 7:00 AM EST) WBC 14.1(H) 4.8 - 10.8 K/[facility] LAB HEMETOLOGY METHOD 11/17/2024 11:08 AM [facility] RBC 5.00 4.50 - 5.50 M/[facility] LAB HEMETOLOGY METHOD 11/17/2024 11:08 AM [facility] Hemoglobin 12.7(L) 13.5 - 17.5 g/dL LAB HEMETOLOGY METHOD 11/17/2024 11:08 AM [facility] Hematocrit 40.0(L) 42.0 - 54.0 % LAB HEMETOLOGY METHOD 11/17/2024 11:08 AM [facility] MCV 80.3 79.0 - 98.0 FL LAB HEMETOLOGY METHOD 11/17/2024 11:08 AM [facility] MCH 25.5(L) 27.0 - 32.0 pcg LAB HEMETOLOGY METHOD 11/17/2024 11:08 AM [facility] MCHC 31.8(L) 32.0 - 37.0 g/dL LAB HEMETOLOGY METHOD 11/17/2024 11:08 AM [facility] RDW 15.1(H) 11.0 - 15.0 % LAB HEMETOLOGY METHOD 11/17/2024 11:08 AM [facility] Platelets 501(H) 130 - 400 K/mcL LAB HEMETOLOGY METHOD 11/17/2024 11:08 AM [facility] MPV 8.9 7.0 - 11.0 FL LAB HEMETOLOGY METHOD 11/17/2024 11:08 AM [facility] NRBC 0.0 <1.0 % LAB HEMETOLOGY METHOD 11/17/2024 11:08 AM [facility] NRBC Absolute 0.00 <0.10 K/mcL LAB HEMETOLOGY METHOD 11/17/2024 11:08 AM [facility] Blood Venous blood specimen / Unknown Venipuncture / Unknown 11/17/2024 7:00 AM EST 11/17/2024 10:44 AM EST us Alba Adams MD LAB BLOOD ORDERABLES Final Resul t [facility] [address] [place] [address], documented in this encounter Visit Diagnoses Diagnosis Other seizures (CMS/HCC) Essential (primary) hypertension Unspecified essential hypertension Anemia, unspecified documented in this encounter Care Teams 911 Emergency Dispatcher Relationship Specialty Start Date End Date Nicole Conroy MD [address] [place] [address] PCP - General Internal Medicine 09/30/24 documented as of this encounter
--- OUTSIDE RECORDS SUMMARY | 2024-12-13 01:26 | XMS_ITS | Encounter Summary ---
Author Organization [facility] Address [address] [place] [address] Care Team Providers Care Budget Officer Name Role Phone Heaven Sherman MD Primary Care Provider UnavailJuana Hawthorne MD Primary Care Provider [phone] Heaven Sherman MD Primary Care Provider Unavaila Nawaf Rodriguez MD Unavailable [phone] Vanesa Juárez NP Unavailable [phone] Nicole Conroy Primary Care Provider Unavaila lucina Encounter Details Date Type Department Care Team Description 09/21/2018 Hospital Medical Records [address] [place] [id number] Garry Erazo PA-C Social History Tobacco Use Types Packs/Day Years [...] on filedocumented in this encounter Care Teams Budget Officer Relationship Specialty Start Date End Date Heaven Sherman MD PCP - General Internal Medicine 08/13/18 01/03/21 Juana Levy MD [address] [place] [address] PCP - General Internal Medicine 01/04/21 08/02/22 Heaven Sherman MD [address] [place] [address] PCP - General Internal Medicine 08/03/22 07/06/24 Nicole Conroy [address] [place] [address] [place] [address] PCP - General Internal Medicine 07/07/24 Nawaf Austin MD [address] [place] [address] [place] [address] Sous Chef Kitchen Manager Cardiovascular Disease 02/06/23 Vanesa Juárez NP [address] [place] [address] [address] [place] [address] Nurse Practitioner Cardiology 07/07/24 documented as of this encounter
--- OUTSIDE RECORDS SUMMARY | 2024-12-13 01:26 | XMS_ITS | Encounter Summary ---
Author Organization [facility] Address [address] [place] [address] Care Team Providers Care Hat And Cap Sewer Name Role Phone Heaven Sherman MD Primary Care Provider Nawaf Arrieta MD Unavailable [phone] Vanesa Juárez NP Unavailable [phone] Nicole Conroy Primary Care Provider Emily verdugo Encounter Details Date Type Department Care Team Description 05/29/2023 Fire Safety Director Report Medical Records [address] [place] [id number] Heaven Sherman MD Social History Tobacco Use Types Packs/Day [...] suspected to have Coronavirus/COVID-19? Unable to assess 05/15/2023 6:48 AM EDT documented as of this encounter Plan of Treatment Not on file documented as of this encounter Visit Diagnoses Not on filedocumented in this encounter Care Teams Hat And Cap Sewer Relationship Specialty Start Date End Date Heaven Sherman MD PCP - General Internal Medicine 08/03/22 07/06/24 Nicole Conroy [address] [place] [address] [address] [place] [address] PCP - General Internal Medicine 07/07/24 Nawaf Austin MD [address] [place] [address] [address] [place] [address] Hydro Pneumatic Tester Cardiovascular Disease 02/06/23 Vanesa Juárez NP [address] [place] [address] [address] [place] [address] Nurse Practitioner Cardiology 07/07/24 documented as of this encounter
--- OUTSIDE RECORDS SUMMARY | 2024-12-13 01:26 | XMS_ITS | Clinical Summary ---
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 canal. No abnormal enhancement withinthe spinal canal. Paraspinal muscles demonstrate postsurgical atrophy at the lumbosacralregion. No mass or fluid collection in the paravertebral region.Visualized intra-abdominal and pelvic structures are normal. Findings by level: T12-L1: No foraminal or spinal canal stenosis L1-2: No foraminal or spinal canal stenosis L2-3: No foraminal or spinal canal stenosis. L3-4: Diffuse disc bulge. Bilateral facet arthropathy with ligamentumflavum thickening and subligamentous cystic changes within the posterioraspect of the spinal canal contributing to moderate spinal canal stenosis.Mild foraminal stenosis bilaterally. L4-5: Posterior decompression and fusion. No foraminal or spinal canalstenosis. L5-S1: Posterior decompression and fusion. No foraminal or spinal canalstenosis. IMPRESSION: Degenerative and postsurgical changes in the lumbar spine with moderatespinal canal stenosis and advanced facet arthritis at L3-4. -------- FINAL REPORT -------- Dictated By: JARON NEWMAN Dictated Date: 12/05/2024 15:15 ET Assigned Physician: JARON NEWMAN Reviewed and Electronically Signed By: JARON NEWMAN Signed Date: 12/05/2024 15:22 ET Workstation ID: [id number] Transcribed By: Self Edit Transcribed Date: 12/05/2024 15:15 ET Brady Villanueva MD [facility] MRI PROCEDURES Final Result * CT Chest/Abdomen/Pelvis wo Contrast (12/05/2024 12:11 PM EST) Anatomical Region Laterality Modality Body Computed Tomogra phy 12/05/2024 12:2 5 PM EST Impressions 12/05/2024 12:32 PM EST Peripheral ground glass opacity anterior left upper lobe presumably inflammatory. ??Otherwise no acute findings. -------- FINAL REPORT -------- Dictated By: Christin Oneill Dictated Date: 12/05/2024 12:25 ET Assigned Physician: Christin Oneill Reviewed and Electronically Signed By: Christin Oneill Signed Date: 12/05/2024 12:32 ET Workstation ID: [id number] Transcribed By: Self Edit Transcribed Date: 12/05/2024 12:25 ET Narrative 12/05/2024 12:[address] CHEST, ABDOMEN AND PELVIS WITHOUT CONTRAST INDICATION: Chest trauma, minor TECHNIQUE: Chest, abdomen and pelvis CT without contrast. Multiplanar reformats were created and interpreted. The examination was performed utilizing dose reduction techniques. Total DLP: 2586 mGy/cm COMPARISON: ??No priors available. FINDINGS: ?? CT CHEST: LUNGS/PLEURA: Peripheral groundglass opacity in the anterior left upper lobe presumably inflammatory. ??A pleural effusion. MEDIASTINUM: Thyroid gland is unremarkable. No mediastinal or hilar lymphadenopathy. Cardiac chambers are normal in size. No pericardial effusion. Esophagus is normal. CHEST WALL: No axillary lymphadenopathy or mass. CT ABDOMEN AND PELVIS: HEPATOBILIARY: No focal liver lesions. Status post cholecystectomy. SPLEEN: no focal lesion PANCREAS: Fatty infiltration the pancreas. ??No ductal dilatation or mass. ADRENALS: No nodules. KIDNEYS/URETERS: No stones or hydronephrosis. ??No solid mass evident. PELVIC ORGANS/BLADDER: Unremarkable. PERITONEUM / RETROPERITONEUM: No ascites or free air. No retroperitoneal lymphadenopathy. VESSELS: Scattered atherosclerotic calcifications throughout the aorta and its major branches. No aneurysm. GI TRACT: Sleeve gastrectomy. ??No bowel wall thickening or obstruction. BONES AND SOFT TISSUES: Degenerative changes with postsurgical changes in the lower lumbar spine. ??There is no evidence for an acute fracture. Streak artifact limits evaluation of the spine at the lower lumbar level.. Procedure Note Christin Oneill MD - 12/05/2024 CT CHEST, ABDOMEN AND PELVIS WITHOUT CONTRAST INDICATION: Chest trauma, minor TECHNIQUE: Chest, abdomen and pelvis CT without contrast. Multiplanarreformats were created and interpreted. The examination was performedutilizing dose reduction techniques. Total DLP: 2586 mGy/cm COMPARISON: No priors available. FINDINGS: CT CHEST: LUNGS/PLEURA: Peripheral groundglass opacity in the anterior left upperlobe presumably inflammatory. A pleural effusion. MEDIASTINUM: Thyroid gland is unremarkable. No mediastinal or hilarlymphadenopathy. Cardiac chambers are normal in size. No pericardialeffusion. Esophagus is normal. CHEST WALL: No axillary lymphadenopathy or mass. CT ABDOMEN AND PELVIS: HEPATOBILIARY: No focal liver lesions. Status post cholecystectomy. SPLEEN: no focal lesion PANCREAS: Fatty infiltration the pancreas. No ductal dilatation ormass. ADRENALS: No nodules. KIDNEYS/URETERS: No stones or hydronephrosis. No solid mass evident. PELVIC ORGANS/BLADDER: Unremarkable. PERITONEUM / RETROPERITONEUM: No ascites or free air. No retroperitoneallymphadenopathy. VESSELS: Scattered atherosclerotic calcifications throughout the aorta andits major branches. No aneurysm. GI TRACT: Sleeve gastrectomy. No bowel wall thickening or obstruction. BONES AND SOFT TISSUES: Degenerative changes with postsurgical changes inthe lower lumbar spine. There is no evidence for an acute fracture.Streak artifact limits evaluation of the spine at the lower lumbarlevel.. IMPRESSION: Peripheral ground glass opacity anterior left upper lobe presumablyinflammatory. Otherwise no acute findings. -------- FINAL REPORT -------- Dictated By: Christin Oneill Dictated Date: 12/05/2024 12:25 ET Assigned Physician: Christin Oneill Reviewed and Electronically Signed By: Christin Oneill Signed Date: 12/05/2024 12:32 ET Workstation ID: [id number] Transcribed By: Self Edit Transcribed Date: 12/05/2024 12:25 ET us Brady Villanueva MD IMG CT PROCEDURES Final Result * Vascular US duplex lower extremity venous left (12/05/2024 3:39 AM EST) Anatomical Region Laterality Modality Vascular, Abdomen Ultrasound 12/05/2024 5:24 AM EST Impressions 12/05/2024 5:24 AM EST No deep vein thrombosis identified in the left lower extremity veins -------- FINAL REPORT -------- Dictated By: Crystal Hall Dictated Date: 12/05/2024 05:24 ET Assigned Physician: Crystal Hall Reviewed and Electronically Signed By: Crystal Hall Signed Date: 12/05/2024 05:24 ET Workstation ID: [id number] Transcribed By: Self Edit Transcribed Date: 12/05/2024 05:24 ET Narrative 12/05/2024 5:24 AM EST INDICATION: DVT Hx pain in extremities COMPARISON: September 2021 TECHNIQUE: Ultrasound of the ??left lower extremity veins is performed using color-flow Doppler, graded compression with B mode Doppler with spectral analysis FINDINGS: The common femoral, superficial femoral and popliteal veins compress normally throughout their length. Normal response to distal augmentation is seen with calf compression. Included calf vessels are patent on color Doppler. Procedure Note Crystal Hall MD - 12/05/2024 INDICATION: DVT Hx pain in extremities COMPARISON: September 2021 TECHNIQUE: Ultrasound of the left lower extremity veins is performedusing color- flow Doppler, graded compression with B mode Doppler withspectral analysis FINDINGS: The common femoral, superficial femoral and popliteal veinscompress normally throughout their length. Normal response to distalaugmentation is seen with calf compression. Included calf vessels arepatent on color Doppler. IMPRESSION: No deep vein thrombosis identified in the left lower extremity veins -------- FINAL REPORT -------- Dictated By: Crystal Hall Dictated Date: 12/05/2024 05:24 ET Assigned Physician: Crystal Hall Reviewed and Electronically Signed By: Crystal Hall Signed Date: 12/05/2024 05:24 ET Workstation ID: [id number] Transcribed By: Self Edit Transcribed Date: 12/05/2024 05:24 ET Brady Villanueva MD CV VASCULAR PROCEDURES Final Re sult * (ABNORMAL) CBC auto differential (12/05/2024 2:30 AM EST) Only the most recent of5 resultswithin the time period is included. WBC 12.2(H) 4.8 - 10.8 K/mcL LAB HEMETOLOGY METHOD 12/05/2024 2:43 AM [facility] RBC 4.40(L) 4.50 - 5.50 M/mcL LAB HEMETOLOGY METHOD 12/05/2024 2:43 AM [facility] Hemoglobin 11.4(L) 13.5 - 17.5 g/dL LAB HEMETOLOGY METHOD 12/05/2024 2:43 AM [facility] Hematocrit 35.8(L) 42.0 - 54.0 % LAB HEMETOLOGY METHOD 12/05/2024 2:43 AM [facility] MCV 81.2 79.0 - 98.0 FL LAB HEMETOLOGY METHOD 12/05/2024 2:43 AM [facility] MCH 25.9(L) 27.0 - 32.0 pcg LAB HEMETOLOGY METHOD 12/05/2024 2:43 AM [facility] MCHC 31.8(L) 32.0 - 37.0 g/dL LAB HEMETOLOGY METHOD 12/05/2024 2:43 AM [facility] RDW 15.1(H) 11.0 - 15.0 % LAB HEMETOLOGY METHOD 12/05/2024 2:43 AM [facility] Platelets 346 130 - 400 K/mcL LAB HEMETOLOGY METHOD 12/05/2024 2:43 AM [facility] MPV 8.8 7.0 - 11.0 FL LAB HEMETOLOGY METHOD 12/05/2024 2:43 AM [facility] NRBC 0.0 <1.0 % LAB HEMETOLOGY METHOD 12/05/2024 2:43 AM [facility] NRBC Absolute 0.00 <0.10 K/mcL LAB HEMETOLOGY METHOD 12/05/2024 2:43 AM [facility] Neutrophils Relative 60.5 % LAB HEMETOLOGY METHOD 12/05/2024 2:43 AM [facility] Lymphocytes Relative 29.8 % LAB HEMETOLOGY METHOD 12/05/2024 2:43 AM [facility] Monocytes Relative 6.8 % LAB HEMETOLOGY METHOD 12/05/2024 2:43 AM [facility] Eosinophils Relative 2.0 % LAB HEMETOLOGY METHOD 12/05/2024 2:43 AM [facility] Basophils Relative 0.4 % LAB HEMETOLOGY METHOD 12/05/2024 2:43 AM [facility] Immature Granulocytes Relative 0.5 % LAB HEMETOLOGY METHOD 12/05/2024 2:43 AM EST [facility] Neutrophils Absolute 7.39(H) 1.50 - 7.00 K/mcL LAB HEMETOLOGY METHOD 12/05/2024 2:43 AM EST [facility] Lymphocytes Absolute 3.64 1.00 - 5.00 K/mcL LAB HEMETOLOGY METHOD 12/05/2024 2:43 AM EST [facility] Monocytes Absolute 0.83 0.20 - 1.00 K/mcL LAB HEMETOLOGY METHOD 12/05/2024 2:43 AM EST [facility] Eosinophils Absolute 0.25 0.00 - 0.50 K/mcL LAB HEMETOLOGY METHOD 12/05/2024 2:43 AM [facility] Basophils Absolute 0.05 0.00 - 0.20 K/mcL LAB HEMETOLOGY METHOD 12/05/2024 2:43 AM EST [facility] Immature Granulocytes Absolute 0.06(H) 0.00 - 0.03 K/mcL LAB HEMETOLOGY METHOD 12/05/2024 2:43 AM [facility] Blood Venous blood specimen / Unknown Venipuncture / Unknown 12/05/2024 2:30 AM EST 12/05/2024 2:39 AM EST us Brady Villanueva MD LAB BLOOD ORDERABLES Final Resu lt [facility] [address] [place] [address], * Basic metabolic panel (12/05/2024 2:30 AM EST) Only the most recent of5 resultswithin the time period is included. Sodium 140 133 - 145 mmol/L LAB CHEMISTRY METHOD 12/05/2024 3:35 AM EST [facility] Potassium 3.8 3.5 - 5.5 mmol/L LAB CHEMISTRY METHOD 12/05/2024 3:35 AM [facility] Chloride 105 96 - 110 mmol/L LAB CHEMISTRY METHOD 12/05/2024 3:35 AM [facility] CO2 25 21 - 32 mmol/L LAB CHEMISTRY METHOD 12/05/2024 3:35 AM [facility] Anion Gap 10 3 - 11 LAB CHEMISTRY METHOD 12/05/2024 3:35 AM [facility] Glucose 96 70 - 100 mg/dL LAB CHEMISTRY METHOD 12/05/2024 3:35 AM [facility] BUN 20 5 - 25 mg/dL LAB CHEMISTRY METHOD 12/05/2024 3:35 AM [facility] Creatinine 0.71 0.70 - 1.30 mg/dL LAB CHEMISTRY METHOD 12/05/2024 3:35 AM [facility] eGFR 104 >=60 mL/min/1. 73m2 LAB CHEMISTRY METHOD 12/05/2024 3:35 AM [facility] Comment:Calculation based on the??Chronic Kidney Disease Epidemiology Collaboration (CKD-EPI) equation refit??without adjustment for race. BUN/Creatinine Ratio 28.2 LAB CHEMISTRY METHOD 12/05/2024 3:35 AM [facility] Calcium 9.2 8.5 - 10.5 mg/dL LAB CHEMISTRY METHOD 12/05/2024 3:35 AM [facility] Blood Venous blood specimen / Unknown Venipuncture / Unknown 12/05/2024 2:30 AM EST 12/05/2024 2:39 AM EST us Brady Villanueva MD LAB BLOOD ORDERABLES Final Resu lt [facility] [address] [place] [address], * XR Hip 2-3 Views Left (12/01/2024 3:41 PM EST) Only the most recent of2 resultswithin the time period is included. Anatomical Region Laterality Modality Lower Extremities, Hip Left Radiograp hic Imaging 12/01/2024 4:26 PM EST Impressions 12/01/2024 4:29 PM EST FINDINGS/IMPRESSION: No acute fracture. ??Anatomic alignment. ??Lumbosacral hardware. -------- FINAL REPORT -------- Dictated By: Christin Oneill Dictated Date: 12/01/2024 16:26 ET Assigned Physician: Christin Oneill Reviewed and Electronically Signed By: Christin Oneill Signed Date: 12/01/2024 16:29 ET Workstation ID: [id number] Transcribed By: Self Edit Transcribed Date: 12/01/2024 16:26 ET Narrative 12/01/2024 4:29 PM EST XR HIP 2-3 VIEWS LEFT INDICATION: pain TECHNIQUE: XR HIP 2-3 VIEWS LEFT COMPARISON: No priors available. Procedure Note Christin Oneill MD - 12/01/2024 XR HIP 2-3 VIEWS LEFT INDICATION: pain TECHNIQUE: XR HIP 2-3 VIEWS LEFT COMPARISON: No priors available. IMPRESSION: FINDINGS/IMPRESSION: No acute fracture. Anatomic alignment. Lumbosacralhardware. -------- FINAL REPORT -------- Dictated By: Christin Oneill Dictated Date: 12/01/2024 16:26 ET Assigned Physician: Christin Oneill Reviewed and Electronically Signed By: Christin Oneill Signed Date: 12/01/2024 16:29 ET Workstation ID: [id number] Transcribed By: Self Edit Transcribed Date: 12/01/2024 16:26 ET us Blayne RUIZ IMG XR PROCEDURES Final Resu lt * XR Lumbar Spine 2-3 Views (12/01/2024 3:41 PM EST) Anatomical Region Laterality Modality Spine, L-spine Radiographic Sammie ging 12/01/2024 4:52 PM EST Impressions 12/01/2024 4:59 PM EST FINDINGS/IMPRESSION:There is no acute osseous abnormality. ?? AP and lateral view of the lumbar spine demonstrate posterior fusion hardware at L4-5. ??Interbody cage devices at L4-5 and L5-S1. ??No comparison examination is available at time of dictation. ??In terms of hardware placement, with correlate with any available prior imaging and postoperative report. ??Osteopenia and degenerative changes. ??Chronic appearing irregularity at the sacrococcygeal junction. ??Surgical clips and vascular calcifications noted. -------- FINAL REPORT -------- Dictated By: Christin Oneill Dictated Date: 12/01/2024 16:52 ET Assigned Physician: Christin Oneill Reviewed and Electronically Signed By: Christin Oneill Signed Date: 12/01/2024 16:59 ET Workstation ID: [id number] Transcribed By: Self Edit Transcribed Date: 12/01/2024 16:52 ET Narrative 12/01/2024 4:59 PM EST XR LUMBAR SPINE 2-3 VIEWS INDICATION: pain TECHNIQUE: XR LUMBAR SPINE 2-3 VIEWS COMPARISON: No priors available. Procedure Note Christin Oneill MD - 12/01/2024 XR LUMBAR SPINE 2-3 VIEWS INDICATION: pain TECHNIQUE: XR LUMBAR SPINE 2-3 VIEWS COMPARISON: No priors available. IMPRESSION: FINDINGS/IMPRESSION:There is no acute osseous abnormality. AP and lateral view of the lumbar spine demonstrate posterior fusionhardware at L4-5. Interbody cage devices at L4-5 and L5-S1. Nocomparison examination is available at time of dictation. In terms ofhardware placement, with correlate with any available prior imaging andpostoperative report. Osteopenia and degenerative changes. Chronicappearing irregularity at the sacrococcygeal junction. Surgical clips andvascular calcifications noted. -------- FINAL REPORT -------- Dictated By: Christin Oneill Dictated Date: 12/01/2024 16:52 ET Assigned Physician: Christin Oneill Reviewed and Electronically Signed By: Christin Oneill Signed Date: 12/01/2024 16:59 ET Workstation ID: [id number] Transcribed By: Self Edit Transcribed Date: 12/01/2024 16:52 ET us Blayne RUIZ IMG XR PROCEDURES Final Resu lt * (ABNORMAL) CBC (12/01/2024 2:24 PM EST) Only the most recent of3 resultswithin the time period is included. WBC 10.6 4.8 - 10.8 K/mcL LAB HEMETOLOGY METHOD 12/01/2024 3:00 PM [facility] RBC 5.00 4.50 - 5.50 M/mcL LAB HEMETOLOGY METHOD 12/01/2024 3:00 PM [facility] Hemoglobin 12.6(L) 13.5 - 17.5 g/dL LAB HEMETOLOGY METHOD 12/01/2024 3:00 PM [facility] Hematocrit 39.9(L) 42.0 - 54.0 % LAB HEMETOLOGY METHOD 12/01/2024 3:00 PM [facility] MCV 79.8 79.0 - 98.0 FL LAB HEMETOLOGY METHOD 12/01/2024 3:00 PM [facility] MCH 25.2(L) 27.0 - 32.0 pcg LAB HEMETOLOGY METHOD 12/01/2024 3:00 PM [facility] MCHC 31.6(L) 32.0 - 37.0 g/dL LAB HEMETOLOGY METHOD 12/01/2024 3:00 PM [facility] RDW 15.0 11.0 - 15.0 % LAB HEMETOLOGY METHOD 12/01/2024 3:00 PM [facility] Platelets 379 130 - 400 K/mcL LAB HEMETOLOGY METHOD 12/01/2024 3:00 PM [facility] MPV 9.0 7.0 - 11.0 FL LAB HEMETOLOGY METHOD 12/01/2024 3:00 PM [facility] NRBC 0.0 <1.0 % LAB HEMETOLOGY METHOD 12/01/2024 3:00 PM [facility] NRBC Absolute 0.00 <0.10 K/mcL LAB HEMETOLOGY METHOD 12/01/2024 3:00 PM EST [facility] Blood Venous blood specimen / Unknown Venipuncture / Unknown 12/01/2024 2:24 PM EST 12/01/2024 2:51 PM EST [facility] LAB BLOOD ORDERABLES Final R esult Performing Organization Address City/[facility]/ZIP Co de Phone Number [facility] [address] [place] [address], [place] [phone] * Creatine kinase (12/01/2024 2:24 PM EST) Only the most recent of3 resultswithin the time period is included. Pathologist [facility] [place] Total CK 53 22 - 269 unit/L LAB CHEMISTRY METHOD 12/01/2024 3:30 PM EST [facility] Blood Venous blood specimen / Unknown Venipuncture / Unknown 12/01/2024 2:24 PM EST 12/01/2024 2:51 PM EST [facility] LAB BLOOD ORDERABLES Final R esult Performing Organization Address City/[facility] Co de Phone Number [facility] [address] [place] [address], [place] [phone] * (ABNORMAL) Urinalysis with reflex microscopic and culture (12/01/2024 1:39 PM EST) Only the most recent of2 resultswithin the time period is included. Specific [place] Urine 1.008 1.003 - 1.030 LAB URINALYSIS - AUTOMATED METHOD 12/01/2024 2:05 PM [facility] pH, Urine 6.5 5.0 - 8.0 pH LAB URINALYSIS - AUTOMATED METHOD 12/01/2024 2:05 PM [facility] Leukocytes, Urine Moderate(A) Negative LAB URINALYSIS - AUTOMATED METHOD 12/01/2024 2:05 PM [facility] Nitrite, Urine Negative Negative LAB URINALYSIS - AUTOMATED METHOD 12/01/2024 2:05 PM [facility] Protein, Urine Negative <=Trace mg/dL LAB URINALYSIS - AUTOMATED METHOD 12/01/2024 2:05 PM [facility] Glucose, Urine Negative Negative mg/dL LAB URINALYSIS - AUTOMATED METHOD 12/01/2024 2:05 PM [facility] Ketones, Urine Negative Negative mg/dL LAB URINALYSIS - AUTOMATED METHOD 12/01/2024 2:05 PM [facility] Urobilinogen , Urine 0.2 0.2 - 1.0 mg/dL LAB URINALYSIS - AUTOMATED METHOD 12/01/2024 2:05 PM [facility] Bilirubin, Urine Negative Negative LAB URINALYSIS - AUTOMATED METHOD 12/01/2024 2:05 PM [facility] Blood, Urine Negative Negative LAB URINALYSIS - AUTOMATED METHOD 12/01/2024 2:05 PM [facility] RBC, Urine 2.1 0 - 4 /HPF LAB URINALYSIS - AUTOMATED METHOD 12/01/2024 2:05 PM [facility] WBC, Urine 91.4(H) 0 - 4 /HPF LAB URINALYSIS - AUTOMATED METHOD 12/01/2024 2:05 PM [facility] Squamous Epithelial, Urine 1 0 - 60 /LPF LAB URINALYSIS - AUTOMATED METHOD 12/01/2024 2:05 PM [facility] Bacteria, Urine Negative Negative /HPF LAB URINALYSIS - AUTOMATED METHOD 12/01/2024 2:05 PM [facility] Hyaline Casts, Urine 0.8 0 - 3 /LPF LAB URINALYSIS - AUTOMATED METHOD 12/01/2024 2:05 PM [facility] Urine Urine specimen obtained by clean catch procedure / Unknown Non-blood Collection / Unknown 12/01/2024 1:39 PM EST 12/01/2024 1:53 PM EST Brett Payton MD LAB URINE ORDERABLES Clare l Result Performing Organization Address City/[facility]/ZIP Co de Phone Number [facility] [address] [place] [address], [place] [phone] * Porter urine culture tube (12/01/2024 1:39 PM EST) Only the most recent of2 resultswithin the time period is included. Extra Tube Hold for add-ons. 12/01/2024 3:01 PM EST [facility] Comment:Auto resulted. Urine Urine specimen obtained by clean catch procedure / Unknown Non-blood Collection / Unknown 12/01/2024 1:39 PM EST 12/01/2024 1:53 PM EST Brett Payton MD LAB URINE ORDERABLES Clare l Result Performing Organization Address [facility]/ZIP Co de Phone Number [facility] [address] [place] [address], [place] [phone] * (ABNORMAL) Culture urine (12/01/2024 1:39 PM EST) Only the most recent of2 resultswithin the time period is included. Culture, Urine >100,000 CFU/mL Pseudomonas aeruginosa(A) SARAY 12/03/2024 10:52 AM EST [facility] Comment: This is an edited result. Previous organism was Gram negative bacilli on 12/02/2024 at 1021 EST. Urine Urine specimen obtained by clean catch procedure / Unknown Non-blood Collection / Unknown 12/01/2024 1:39 PM EST 12/01/2024 2:05 PM EST Narrative Organism Antibiotic Method Susceptibility Pseudomonas aeruginosa Piperacillin/Tazobactam SARAY <=4 ug/ml: Susceptible Pseudomonas aeruginosa Ceftazidime SARAY 2 ug/ml: Susceptible Pseudomonas aeruginosa Cefepime SARAY 2 ug/ml: Susceptible Pseudomonas aeruginosa Meropenem SARAY <=0.25 ug/ml: Susceptible Pseudomonas aeruginosa Amikacin SARAY 2 ug/ml: Susceptible Pseudomonas aeruginosa Ciprofloxacin SARAY 0.12 ug/ml: Susceptible Pseudomonas aeruginosa Levofloxacin SARAY 0.5 ug/ml: Susceptible us Brett Payton MD LAB MICROBIOLOGY - GENERA L ORDERABLES Final Result [facility] [address] [place] [address], [place] [phone] * (ABNORMAL) Comprehensive metabolic panel (11/10/2024 6:46 AM EST) Only the most recent of2 resultswithin the time period is included. Sodium 136 133 - 145 mmol/L LAB CHEMISTRY METHOD 11/10/2024 3:49 PM [facility] Potassium 3.8 3.5 - 5.5 mmol/L LAB CHEMISTRY METHOD 11/10/2024 3:49 PM [facility] Chloride 100 96 - 110 mmol/L LAB CHEMISTRY METHOD 11/10/2024 3:49 PM [facility] CO2 30 21 - 32 mmol/L LAB CHEMISTRY METHOD 11/10/2024 3:49 PM [facility] Anion Gap 6 3 - 11 LAB CHEMISTRY METHOD 11/10/2024 3:49 PM [facility] Glucose 75 70 - 100 mg/dL LAB CHEMISTRY METHOD 11/10/2024 3:49 PM [facility] BUN 11 5 - 25 mg/dL LAB CHEMISTRY METHOD 11/10/2024 3:49 PM [facility] Creatinine 0.64(L) 0.70 - 1.30 mg/dL LAB CHEMISTRY METHOD 11/10/2024 3:49 PM [facility] eGFR 107 >=60 mL/min/1. 73m2 LAB CHEMISTRY METHOD 11/10/2024 3:49 PM EST [facility] Comment:Calculation based on the??Chronic Kidney Disease Epidemiology Collaboration (CKD-EPI) equation refit??without adjustment for race. BUN/Creatinine Ratio 17.2 LAB CHEMISTRY METHOD 11/10/2024 3:49 PM [facility] Calcium 8.7 8.5 - 10.5 mg/dL LAB CHEMISTRY METHOD 11/10/2024 3:49 PM [facility] AST (SGOT) 78(H) 10 - 42 unit/L LAB CHEMISTRY METHOD 11/10/2024 3:49 PM [facility] ALT (SGPT) 63(H) 10 - 60 unit/L LAB CHEMISTRY METHOD 11/10/2024 3:49 PM [facility] Alkaline Phosphatase 114 42 - 121 unit/L LAB CHEMISTRY METHOD 11/10/2024 3:49 PM [facility] Total Protein 5.4(L) 6.0 - 8.0 g/dL LAB CHEMISTRY METHOD 11/10/2024 3:49 PM [facility] Albumin 2.7(L) 3.2 - 5.0 g/dL LAB CHEMISTRY METHOD 11/10/2024 3:49 PM [facility] Total Bilirubin 0.5 0.0 - 1.4 mg/dL LAB CHEMISTRY METHOD 11/10/2024 3:49 PM [facility] Blood Venous blood specimen / Unknown Venipuncture / Unknown 11/10/2024 6:46 AM EST 11/10/2024 12:38 PM EST us Alba Adams MD LAB BLOOD ORDERABLES Final Resul t [facility] [address] [place] [address], * (ABNORMAL) Creatine kinase and CKMB (11/07/2024 6:04 AM EST) Only the most recent of2 resultswithin the time period is included. Pathologist [facility] [place] Total CK 4,038(H) 22 - 269 unit/L LAB CHEMISTRY METHOD 11/07/2024 7:58 AM [facility] CK-MB 6.7(H) 1.0 - 3.6 ng/mL LAB CHEMISTRY METHOD 11/07/2024 7:58 AM [facility] CK-MB Index 0.0 0.0 - 5.0 LAB CHEMISTRY METHOD 11/07/2024 7:58 AM [facility] Blood Venous blood specimen / Unknown Venipuncture / Unknown 11/07/2024 6:04 AM EST 11/07/2024 6:25 AM EST us Mitzy Miller MD LAB BLOOD ORDERABLES Final Result Performing Organization Address City/[facility]/ZIP Co de Phone Number [facility] [address] [place] [address], [place] [phone] * Lavender tube (11/06/2024 6:14 AM EST) [facility] Extra Tube Hold for add-ons. 11/06/2024 9:01 AM EST [facility] Comment:Auto resulted. Blood Venous blood specimen / Unknown 11/06/2024 6:14 AM EST 11/06/2024 7:05 AM EST Mitzy Miller MD LAB BLOOD ORDERABLES Final Result [facility] [address] [place] [address], [place] [phone] * (ABNORMAL) Alanine aminotransferase (11/06/2024 6:14 AM EST) [facility] ALT (SGPT) 92(H) 10 - 60 unit/L LAB CHEMISTRY METHOD 11/06/2024 9:17 AM [facility] Blood Venous blood specimen / Unknown 11/06/2024 6:14 AM EST 11/06/2024 6:55 AM EST Mitzy Miller MD LAB BLOOD ORDERABLES Final Result Performing Organization Address City/[facility]/ZIP Co de Phone Number [facility] [address] [place] [address], [place] [phone] * (ABNORMAL) Aspartate aminotransferase (11/06/2024 6:14 AM EST) AST (SGOT) 255(H) 10 - 42 unit/L LAB CHEMISTRY METHOD 11/06/2024 9:17 AM EST [facility] Blood Venous blood specimen / Unknown 11/06/2024 6:14 AM EST 11/06/2024 6:55 AM EST Mitzy Miller MD LAB BLOOD ORDERABLES Final Result Performing Organization Address City/[facility]/ZIP Co de Phone Number [facility] [address] [place] [address], [place] [phone] * POCT Glucose, blood (11/04/2024 4:33 PM EST) Only the most recent of2 resultswithin the time period is included. [facility] Glucose POCT 80 70 - 100 mg/dL 11/04/2024 4:33 PM EST [facility] Blood Capillary blood specimen / Unknown 11/04/2024 4:33 PM EST 11/04/2024 4:35 PM EST Samir Roman DO LAB POINT OF CARE T EST DOCKED DEVICE UNSOLICITED RESULTS Final Result Performing Organization Address City/[facility]/ZIP Co de Phone Number [facility] [address] [place] [address], [place] [phone] * Troponin I high sensitivity (11/04/2024 12:00 PM EST) Only the most recent of2 resultswithin the time period is included. High Sensitivity Troponin I 57 <=79 ng/L LAB CHEMISTRY METHOD 11/04/2024 12:52 PM EST [facility] Blood Venous blood specimen / Unknown Venipuncture / Unknown 11/04/2024 12:00 PM EST 11/04/2024 12:22 PM EST Narrative [facility] - 11/04/2024 12:52 PM EST High levels of biotin in samples may falsely decrease hsTroponin values. ??Use caution when interpreting hsTroponin results in patients taking biotin who exhibit renal impairment (eGFR <60) or in patients taking more than 20 mg/day of biotin. us Lola RUIZ LAB BLOOD ORDERABLES Fin al Result [facility] [address] [place] [address], * CT Head wo Contrast (11/04/2024 11:53 AM EST) Anatomical Region Laterality Modality Head and Neck Computed Tomogra phy 11/04/2024 11:5 5 AM EST Impressions 11/04/2024 12:17 PM EST NO ACUTE INTRACRANIAL ABNORMALITY. -------- FINAL REPORT -------- Dictated By: JARON NEWMAN Dictated Date: 11/04/2024 11:55 ET Assigned Physician: JARON NEWMAN Reviewed and Electronically Signed By: JARON NEWMAN Signed Date: 11/04/2024 12:17 ET Workstation ID: [id number] Transcribed By: Self Edit Transcribed Date: 11/04/2024 11:56 ET Narrative 11/04/2024 12:17 PM EST PROCEDURE: HEAD CT INDICATION: Dizziness TECHNIQUE: CT of the head without intravenous contrast. Multiplanar reformats. The examination was performed utilizing dose reduction techniques. Total DLP 901 COMPARISON: ??08/21/2024 FINDINGS: ?? No acute territorial infarct, mass effect, or intracranial hemorrhage. Mild scattered periventricular and subcortical white matter hypodensities are most likely related to chronic small vessel ischemic change. Ventricles, sulci, and cisterns are normal in size and configuration. No hydrocephalus or volume loss. Visualized paranasal sinuses and mastoid air cells are clear. No scalp hematoma or skull fracture. Procedure Note Jaron Newman MD - 11/04/2024 PROCEDURE: HEAD CT INDICATION: Dizziness TECHNIQUE: CT of the head without intravenous contrast. Multiplanarreformats. The examination was performed utilizing dose reductiontechniques. Total DLP 901 COMPARISON: 08/21/2024 FINDINGS: No acute territorial infarct, mass effect, or intracranial hemorrhage. Mild scattered periventricular and subcortical white matter hypodensitiesare most likely related to chronic small vessel ischemic change. Ventricles, sulci, and cisterns are normal in size and configuration. Nohydrocephalus or volume loss. Visualized paranasal sinuses and mastoid air cells are clear. No scalp hematoma or skull fracture. IMPRESSION: NO ACUTE INTRACRANIAL ABNORMALITY. -------- FINAL REPORT -------- Dictated By: JARON NEWMAN Dictated Date: 11/04/2024 11:55 ET Assigned Physician: JARON NEWMAN Reviewed and Electronically Signed By: JARON NEWMAN Signed Date: 11/04/2024 12:17 ET Workstation ID: [id number] Transcribed By: Self Edit Transcribed Date: 11/04/2024 11:56 ET Lola RUIZ [facility] CT PROCEDURES Final Result * XR Shoulder 2+ Views Left (11/04/2024 11:39 AM EST) Anatomical Region Laterality Modality Upper Extremities, Shoulder Left Radi ographic Imaging 11/04/2024 12:0 1 PM EST Impressions 11/04/2024 12:09 PM EST No pneumonia or edema. No acute fracture or subluxation around the left shoulder. Previous lower spinal surgery. No acute abnormality around the left hip -------- FINAL REPORT -------- Dictated By: Wiley Childers Dictated Date: 11/04/2024 12:01 ET Assigned Physician: Wiley Childers Reviewed and Electronically Signed By: Wiley Childers Signed Date: 11/04/2024 12:09 ET Workstation ID: [id number] Transcribed By: Self Edit Transcribed Date: 11/04/2024 12:01 ET Narrative 11/04/2024 12:09 PM EST EXAMINATION: CHEST PELVIS LEFT HIP LEFT SHOULDER CLINICAL INFORMATION: Chest pain. Shoulder pain. Hip pain COMPARISON: Frontal view of the chest 11/26/2023 TECHNIQUE: 2 views of the chest. 4 views of the left shoulder Frontal view pelvis 2 views Left hip FINDINGS: Chest: There is some kyphosis and rotation to the right. There is tortuosity aorta. The cardiac size keyshawn and vasculature are within normal limits. No consolidation or major zone atelectasis. No pleural fluid or pneumothorax. Trace anterior wedging in the mid thoracic spine. There may be some reticular opacities in the lung bases. Left shoulder: No acute fracture or subluxation. No suspicious focal lesion. No abnormal soft tissue calcification. No suspicious abnormality in the visualized portions of the chest. Pelvis: No disruption of the SI joints, hips or symphysis. Lower spinal instrumentation. Bone graft harvest site left iliac wing. Surgical clip right lower quadrant. No suspicious abnormality in the visualized proximal right femur. Left hip: The hip is in normal alignment. The joint spaces preserved. The femoral head contour is smooth. No focal lesion. No fracture demonstrated Procedure Note Wiley Childers MD - 11/04/2024 EXAMINATION: CHEST PELVIS LEFT HIP LEFT SHOULDER CLINICAL INFORMATION: Chest pain. Shoulder pain. Hip pain COMPARISON: Frontal view of the chest 11/26/2023 TECHNIQUE: 2 views of the chest. 4 views of the left shoulder Frontal view pelvis 2 views Left hip FINDINGS: Chest: There is some kyphosis and rotation to the right. There is tortuosityaorta. The cardiac size keyshawn and vasculature are within normal limits. Noconsolidation or major zone atelectasis. No pleural fluid or pneumothorax. Trace anterior wedging in the mid thoracic spine. There may be somereticular opacities in the lung bases. Left shoulder: No acute fracture or subluxation. No suspicious focal lesion. No abnormalsoft tissue calcification. No suspicious abnormality in the visualizedportions of the chest. Pelvis: No disruption of the SI joints, hips or symphysis. Lower spinalinstrumentation. Bone graft harvest site left iliac wing. Surgical clipright lower quadrant. No suspicious abnormality in the visualized proximal right femur. Left hip: The hip is in normal alignment. The joint spaces preserved. The femoralhead contour is smooth. No focal lesion. No fracture demonstrated IMPRESSION: No pneumonia or edema. No acute fracture or subluxation around the left shoulder. Previous lower spinal surgery. No acute abnormality around the left hip -------- FINAL REPORT -------- Dictated By: Wiley Childers Dictated Date: 11/04/2024 12:01 ET Assigned Physician: Wiley Childers Reviewed and Electronically Signed By: Wiley Childers Signed Date: 11/04/2024 12:09 ET Workstation ID: [id number] Transcribed By: Self Edit Transcribed Date: 11/04/2024 12:01 ET Lola RUIZ IMG XR PROCEDURES Final Result * XR Chest 2 Views (11/04/2024 11:39 AM EST) Anatomical Region Laterality Modality Body Radiographic Sammie ging 11/04/2024 12:0 1 PM EST Impressions 11/04/2024 12:09 PM EST No pneumonia or edema. No acute fracture or subluxation around the left shoulder. Previous lower spinal surgery. No acute abnormality around the left hip -------- FINAL REPORT -------- Dictated By: Wiley Childers Dictated Date: 11/04/2024 12:01 ET Assigned Physician: Wiley Childers Reviewed and Electronically Signed By: Wiley Childers Signed Date: 11/04/2024 12:09 ET Workstation ID: [id number] Transcribed By: Self Edit Transcribed Date: 11/04/2024 12:01 ET Narrative 11/04/2024 12:09 PM EST EXAMINATION: CHEST PELVIS LEFT HIP LEFT SHOULDER CLINICAL INFORMATION: Chest pain. Shoulder pain. Hip pain COMPARISON: Frontal view of the chest 11/26/2023 TECHNIQUE: 2 views of the chest. 4 views of the left shoulder Frontal view pelvis 2 views Left hip FINDINGS: Chest: There is some kyphosis and rotation to the right. There is tortuosity aorta. The cardiac size keyshawn and vasculature are within normal limits. No consolidation or major zone atelectasis. No pleural fluid or pneumothorax. Trace anterior wedging in the mid thoracic spine. There may be some reticular opacities in the lung bases. Left shoulder: No acute fracture or subluxation. No suspicious focal lesion. No abnormal soft tissue calcification. No suspicious abnormality in the visualized portions of the chest. Pelvis: No disruption of the SI joints, hips or symphysis. Lower spinal instrumentation. Bone graft harvest site left iliac wing. Surgical clip right lower quadrant. No suspicious abnormality in the visualized proximal right femur. Left hip: The hip is in normal alignment. The joint spaces preserved. The femoral head contour is smooth. No focal lesion. No fracture demonstrated Procedure Note Wiley Childers MD - 11/04/2024 EXAMINATION: CHEST PELVIS LEFT HIP LEFT SHOULDER CLINICAL INFORMATION: Chest pain. Shoulder pain. Hip pain COMPARISON: Frontal view of the chest 11/26/2023 TECHNIQUE: 2 views of the chest. 4 views of the left shoulder Frontal view pelvis 2 views Left hip FINDINGS: Chest: There is some kyphosis and rotation to the right. There is tortuosityaorta. The cardiac size keyshawn and vasculature are within normal limits. Noconsolidation or major zone atelectasis. No pleural fluid or pneumothorax. Trace anterior wedging in the mid thoracic spine. There may be somereticular opacities in the lung bases. Left shoulder: No acute fracture or subluxation. No suspicious focal lesion. No abnormalsoft tissue calcification. No suspicious abnormality in the visualizedportions of the chest. Pelvis: No disruption of the SI joints, hips or symphysis. Lower spinalinstrumentation. Bone graft harvest site left iliac wing. Surgical clipright lower quadrant. No suspicious abnormality in the visualized proximal right femur. Left hip: The hip is in normal alignment. The joint spaces preserved. The femoralhead contour is smooth. No focal lesion. No fracture demonstrated IMPRESSION: No pneumonia or edema. No acute fracture or subluxation around the left shoulder. Previous lower spinal surgery. No acute abnormality around the left hip -------- FINAL REPORT -------- Dictated By: Wiley Childers Dictated Date: 11/04/2024 12:01 ET Assigned Physician: Wiley Childers Reviewed and Electronically Signed By: Wiley Childers Signed Date: 11/04/2024 12:09 ET Workstation ID: [id number] Transcribed By: Self Edit Transcribed Date: 11/04/2024 12:01 ET Lola RUIZ IMG XR PROCEDURES Final Result * ECG 12 lead (11/04/2024 9:57 AM EST) Ventricular Rate ECG 93 BPM GEMUSE Atrial Rate 93 BPM GEMUSE P-R Interval 192 ms GEMUSE QRS Duration 116 ms GEMUSE Q-T Interval 366 ms GEMUSE QTc 455 ms GEMUSE P Wave [place] 30 degrees GEMUSE R [place] 52 degrees GEMUSE T [place] 22 degrees GEMUSE ECG Interpretation Normal sinus rhythm Normal ECG When compared with ECG of 27-AUG-2024 12:49, No significant change was found Confirmed by JOSE GRANADO ([id number]) on 11/04/2024 6:44:32 PM GEMUSE 11/04/2024 9:57 AM EST 11/04/2024 6:44 PM EST Lola RUIZ ECG ORDERABLES Final Re sult GEMUSE * Procalcitonin (11/04/2024 9:38 AM EST) Procalcitonin 0.11 <=0.16 ng/mL LAB CHEMISTRY METHOD 11/05/2024 11:04 AM EST [facility] Blood Venous blood specimen / Unknown Venipuncture / Unknown 11/04/2024 9:38 AM EST 11/04/2024 10:13 AM EST Narrative [facility] - 11/05/2024 11:04 AM EST Procalcitonin > 2.00 ng/ml: Procalcitonin Levels above 2.00 ng/ml, on the first day of ICU admission represent a high risk for progression to severe sepsis and/or septic shock. Procalcitonin < 0.50 ng/ml: Procalcitonin levels below 0.50 ng/ml on the first day of ICU admission represent a low risk for progression to severe sepsis and/or septic shock. Concentrations <0.5 ng/mL do not exclude an infection, on account of local ized infections (without systemic signs) which can be associated with such low concentrations, or a systemic infection in its initial stages (<6 hours). Furthermore, increased procalcitonin can occur without infection. PCT concentrations between 0.5 and 2.0 ng/mL should be interpreted taking into account the patient's history. It is recommended to retest PCT within 6-24 hours if any concentrations <2.0 ng/mL are obtained. [employer] [facility] LAB BLOOD ORDERABLES Final Resu lt Performing Organization Address City/[facility]/ZIP Co de Phone Number [facility] [address] [place] [address], * (ABNORMAL) C-reactive protein (11/04/2024 9:38 AM EST) C-Reactive Protein 1.26(H) <=0.50 mg/dL LAB CHEMISTRY METHOD 11/04/2024 6:10 PM EST [facility] Blood Venous blood specimen / Unknown Venipuncture / Unknown 11/04/2024 9:38 AM EST 11/04/2024 10:13 AM EST [employer] [facility] LAB BLOOD ORDERABLES Final Resu lt [facility] [address] [place] [address], * Magnesium (11/04/2024 9:38 AM EST) Magnesium 2.2 1.9 - 2.6 mg/dL LAB CHEMISTRY METHOD 11/04/2024 10:57 AM EST [facility] Comment:Hemolysis present Blood Venous blood specimen / Unknown Venipuncture / Unknown 11/04/2024 9:38 AM EST 11/04/2024 10:13 AM EST us Lola RUIZ LAB BLOOD ORDERABLES Fin al Result [facility] [address] [place] [address], [place] [phone] * ECG-Outside (11/04/2024) us Provider Onbase MD ECG ORDERABLES Final Result * ECG-Annotated (11/04/2024) us Provider Onbase MD ECG ORDERABLES Final Result * Vascular US duplex renal artery/venous bilateral (10/14/2024 8:37 AM EST) Left renal dist kinney 25 cm/s [facility] Left renal dist sys 86 cm/s [facility] Left Renal Dist RI 0.72 no units [facility] Left renal mid kinney 43 cm/s [facility] Left renal mid sys 212 cm/s [facility] Left Renal Mid RI 0.80 no units [facility] Left renal prox kinney 17 cm/s [facility] Left renal prox sys 78 cm/s [facility] Left Renal Prox RI 0.78 no units [facility] Right renal dist kinney 41 cm/s [facility] Right renal dist sys 162 cm/s [facility] RIght Renal Dist RI 0.75 no units [facility] Right renal mid kinney 29 cm/s [facility] Right renal mid sys 154 cm/s [facility] RIght Renal Mid RI 0.81 no units [facility] Right renal prox kinney 38 cm/s [facility] Right renal prox sys 185 cm/s [facility] RIght Renal Prox RI 0.80 no units [facility] Suprarenal Aorta PSV 136 cm/s [facility] Right kidney length 11.27 cm [facility] Left kidney length 13.17 cm [facility] Right kidney trans 6.2 cm [facility] Right kidney AP 5.1 cm [facility] Right Kidney Cyst 1 AP 0.75 cm [facility] Right Kidney Cyst 1 TR 0.99 cm [facility] Right Kidney Cyst 1 Long 0.75 cm [facility] Left kidney trans 5.1 cm [facility] Left kidney AP 5.4 cm [facility] Anatomical Region Laterality Modality Vascular, Abdomen Ultrasound Addenda Addendum by Tony Holland MD on 10/24/2024 11:39 AM EST Right kidney: 1. ??The velocities in the right renal artery are slightly elevated but with a normal renal aorta ratio, which is suggestive of a <60% stenosis in the right renal artery. 2. ??There is evidence of elevated resistive index in the right kidney, suggestive of underlying parenchymal renal disease. 3. ??Normal right kidney length. 4. ??There is evidence of hypoechoic structure with a vascular component in the right kidney measuring 1.93 cm x 1.91 cm x 2.09 cm. ??Unable to rule out that this represents a renal mass given the available images. ?? Consider dedicated testing with an abdominal CT scan or abdominal MRI for further evaluation. Left kidney: 1. ??The velocities in the left renal artery are slightly elevated but with a normal renal aorta ratio, which is suggestive of a < 60% stenosis in the left renal artery. 2. ??Borderline left renal resistive index. 3. ??Normal left kidney length. In summary, there is evidence of possible renal artery stenosis on the current study. ??Furthermore, there is evidence of a hypoechoic structure in the right kidney with a vascular component which may represent a renal mass. ??As such, would recommend to consider further testing with an abdominal CTA or abdominal MRA for further evaluation of the abnormalities cited above. Right Renal The right renal vein is patent. Left Renal The left renal vein is patent. Kidneys The right kidney is 11.27 cm in length x 5.1 cm AP x 6.2 cm transverse. The right kidney has a hypoechoic structure with a vascular component in the right kidney, measuring 1.93 x 1.91 x 2.09cm. The left kidney is 13.17 cm in length x 5.4 cm AP x 5.1 cm transverse. [facility] Marker Details A porter scale, color and doppler analysis ultrasound was performed. During the study longitudinal and transverse views were obtained. Pulsed wave doppler was performed. Study was technically difficult due to: body habitus. us Nawaf Austin MD CV VASCULAR PROCEDURES Edited Result - Final * Metanephrines, plasma free (10/01/2024 10:18 AM EST) Normetanephrine Plasma 65.2 0.0 - 285.2 pg/mL [facility] 1 Metanephrine Plasma 28.3 0.0 - 88.0 pg/mL [facility] 1 10/01/2024 10:1 8 AM EST 10/01/2024 Narrative [facility] - 10/06/2024 1:06 PM EST Test(s) 202469-[id number], Pl; [id number], Pl was developed and its performance characteristics determined by [facility]. It has not been cleared or approved by the Food and Drug Administration. Performed at: ??01 - [facility] ??[id number] Chemical Engineer: Bib Cueva MD, Phone: ??[phone] us Nawaf Austin MD LAB BLOOD ORDERABLES Final Res ult [facility] 1 * Lipid panel with reflex to direct LDL (08/22/2024 6:05 AM EST) Cholesterol 194 0 - 200 mg/dL LAB CHEMISTRY METHOD 08/22/2024 8:34 AM EST [facility] Triglycerides 111 0 - 150 mg/dL LAB CHEMISTRY METHOD 08/22/2024 8:34 AM EST [facility] HDL 98 >=40 mg/dL LAB CHEMISTRY METHOD 08/22/2024 8:34 AM EST [facility] LDL Calculated 74 0 - 100 mg/dL LAB CHEMISTRY METHOD 08/22/2024 8:34 AM EST [facility] VLDL Cholesterol Alex 22.2 mg/dL LAB CHEMISTRY METHOD 08/22/2024 8:34 AM EST [facility] Non HDL Chol. (LDL+VLDL) 96 <145 mg/dL LAB CHEMISTRY METHOD 08/22/2024 8:34 AM EST [facility] Chol/HDL Ratio 2.0 0.0 - 4.4 LAB CHEMISTRY METHOD 08/22/2024 8:34 AM EST [facility] Blood Venous blood specimen / Unknown Venipuncture / Unknown 08/22/2024 6:05 AM EST 08/22/2024 6:17 AM EST Lynn RUIZ LAB BLOOD ORDERABLES Final Result [facility]) [facility] [address] [place] [address], [place] [phone] from Last 3 Months or Most Recently Relevant to Health Maintenance Insurance Member Subscriber Plan / Payer (Ef fective 2024-Present) Name:Roberto Carlos Hall Jr. Relation to Subscriber:Self Name:Roberto Carlos Hall Jr. Payer ID:[id number] Group ID:[id number] Type:Not on file Address: [address] [id number] Advance Directives Documents on File Type Date Recorded Patient [place] [employer] [place] Expl anation Health Care Decision (hx) 06/28/2015 AD MCMANUS DIRECTIVE Health Care Decision (hx) 06/28/2015 AD MCMANUS DIRECTIVE Health Care Decision (hx) 06/28/2015 AD MCMANUS DIRECTIVE Health Care Decision (hx) 06/28/2015 AD MCMANUS DIRECTIVE Health Care Decision (hx) 06/28/2015 AD MCMANUS DIRECTIVE Health Care Decision (hx) 06/28/2015 AD MCMANUS DIRECTIVE Health Care Decision (hx) 06/28/2015 AD MCMANUS DIRECTIVE Health Care Decision (hx) 06/28/2015 AD MCMANUS DIRECTIVE Health Care Decision (hx) 06/28/2015 AD MCMANUS DIRECTIVE Health Care Decision (hx) 06/28/2015 AD MCMANUS DIRECTIVE Health Care Decision (hx) 06/28/2015 AD MCMANUS DIRECTIVE Health Care Decision (hx) 06/28/2015 AD MCMANUS DIRECTIVE Health Care Decision (hx) 06/28/2015 AD MCMANUS DIRECTIVE Health Care Decision (hx) 06/28/2015 AD MCMANUS DIRECTIVE Health Care Decision (hx) 06/28/2015 AD MCMANUS DIRECTIVE Health Care Decision (hx) 06/25/2015 AD MCMANUS DIRECTIVE Health Care Decision (hx) 06/25/2015 AD MCMANUS DIRECTIVE Health Care Decision (hx) 06/25/2015 AD MCMANUS DIRECTIVE Health Care Decision (hx) 06/25/2015 AD MCMANUS DIRECTIVE Health Care Decision (hx) 06/25/2015 AD MCMANUS DIRECTIVE Health Care Decision (hx) 06/25/2015 AD MCMANUS DIRECTIVE Health Care Decision (hx) 06/25/2015 AD MCMANUS DIRECTIVE Health Care Decision (hx) 06/25/2015 AD MCMANUS DIRECTIVE Health Care Decision (hx) 06/25/2015 AD MCMANUS DIRECTIVE Health Care Decision (hx) 06/25/2015 AD MCMANUS DIRECTIVE Health Care Decision (hx) 06/25/2015 AD MCMANUS DIRECTIVE Health Care Decision (hx) 06/25/2015 AD MCMANUS DIRECTIVE Health Care Decision (hx) 06/25/2015 AD MCMANUS DIRECTIVE Health Care Decision (hx) 06/25/2015 AD MCMANUS DIRECTIVE Health Care Decision (hx) 06/25/2015 AD MCMANUS DIRECTIVE * Full Code - Confirmed (Latest Code Status on File) Date Activated Date Inactivated Comments 11/04/2024 4:23 PM 11/07/2024 4:[address] atus was ascertained in the following way: Code status discussion: discussion with patient To update the patient's code status, place a code status order. Do not modify or discontinue any currently active code status orders. * Full Code - Default Date Activated Date Inactivated Comments 08/21/2024 8:38 AM 08/22/2024 5:21 PM This is orde r is used when code status has not been discussed with the patient, or code status is otherwise unknown/unconfirmed To update the patient's code status, place a code status order. Do not modify or discontinue any currently active code status orders. Care Teams Proof Technician Helper Relationship Specialty Start Date End Date Nicole Conroy MD [address] [place] [address] PCP - General Internal Medicine 09/30/24
--- OUTSIDE RECORDS SUMMARY | 2024-12-13 01:26 | XMS_ITS | Encounter Summary ---
Author Organization [facility] [place] [address] Care Team Providers Care Cartographic Technician Name Role Phone Nicole Conroy MD Primary Care Provider Encounter Details Date Type Department Care Team (Late st Contact Info) Description 11/21/2024 Lab Requisition [facility] - Main Lab [address] [facility] [place] [address] Alba Adams MD [address] [place] [address] Other seizures (CMS/HCC); Essential (primary) hypertension; Anemia, [...] Description 12/26/2024 7:50 AM EDT Office Visit [facility] [address] [place] [address] Nawaf Austin MD [address] [place] [address] [address]IVE [address] [place] [address] documented as of this encounter Visit Diagnoses Diagnosis Other seizures (CMS/HCC) Essential (primary) hypertension Unspecified essential hypertension Anemia, unspecified documented in this encounter Care Teams Cartographic Technician Relationship Specialty Start Date End Date Nicole Conroy MD [address] [place] [address] PCP - General Internal Medicine 09/30/24 documented as of this encounter
--- OUTSIDE RECORDS SUMMARY | 2024-12-13 01:26 | XMS_ITS | Encounter Summary ---
Author Organization [facility] Address [address] [place] [address] Care Team Providers Care Sales Recruitment Specialist Name Role Phone Heaven Sherman MD Primary Care Provider Nawaf Arrieta MD Unavailable [phone] Vanesa Juárez NP Unavailable [phone] Nicole Conroy Primary Care Provider Emily verdugo Encounter Details Date Type Department Care Team Description 03/06/2023 [facility] Medical Records [address] [place] [address] Social History Tobacco Use Types Packs/Day Years [...] Associated Diagnosis Comments OUTSIDE PLAIN FILM Routine 03/06/2023 documented in this encounter Results * OUTSIDE PLAIN FILM (03/06/2023) Provider Abstract RADIOLOGY documented in this encounter Visit Diagnoses Not on filedocumented in this encounter Care Teams Sales Recruitment Specialist Relationship Specialty Start Date End Date Heaven Sherman MD PCP - General Internal Medicine 08/03/22 07/06/24 Nicole Conroy [address] [place] [address] [address] [place] [address] PCP - General Internal Medicine 07/07/24 Nawaf Austin MD [address] [place] [address] [address] [place] [address] Material Handling Equipment Stevedore Cardiovascular Disease 02/06/23 Vanesa Juárez NP [address] [place] [address] DR[address] [place], [place] [id number] Nurse Practitioner Cardiology 07/07/24 documented as of this encounter
--- OUTSIDE RECORDS SUMMARY | 2024-12-13 01:26 | XMS_ITS | Encounter Summary ---
Author Organization [facility] Address [address] [place] [address] Care Team Providers Care Parts Order And Stock Clerk Name Role Phone Heaven Sherman MD Primary Care Provider Nawaf Arrieta MD Unavailable [phone] Vanesa Juárez NP Unavailable [phone] Nicole Conroy Primary Care Provider Emily verdugo Encounter Details Date Type Department Care Team Description 02/15/2024 Hospital Medical Records [address] [place] [id number] [place] [address] Social History Tobacco Use Types Packs/Day Years [...] Date/Time Associated Diagnosis Comments OUTSIDE EKG Routine 02/15/2024 OUTSIDE MRI/MRA Routine 02/15/[address] Routine 02/15/[address] Routine 02/15/[address] Routine 02/15/2024 documented in this encounter Results * OUTSIDE MRI/MRA (02/15/2024) Provider Default RADIOLOGY * OUTSIDE CT (02/15/2024) Provider Default RADIOLOGY * OUTSIDE CT (02/15/2024) Provider Default RADIOLOGY * OUTSIDE CT (02/15/2024) Provider Default RADIOLOGY * OUTSIDE EKG (02/15/2024) Provider Default CARDIOLOGY documented in this encounter Visit Diagnoses Not on filedocumented in this encounter Care Teams Parts Order And Stock Clerk Relationship Specialty Start Date End Date Heaven Sherman MD PCP - General Internal Medicine 08/03/22 07/06/24 Nicole Conroy [address] [place] [address] [address]IVE [address] [place] [address] PCP - General Internal Medicine 07/07/24 Nawaf Austin MD [address] [place] [address] [address] [place] [address] Search Engine Optimization Strategist Cardiovascular Disease 02/06/23 Vanesa Juárez NP [address] [place] [address] [address] [place] [address] Nurse Practitioner Cardiology 07/07/24 documented as of this encounter
--- OUTSIDE RECORDS SUMMARY | 2024-12-13 01:26 | XMS_ITS | Encounter Summary ---
Author Organization [facility] Address [address] [place] [address] Care Team Providers Care Candy Attendant Name Role Phone Heaven Sherman MD Primary Care Provider Nawaf Arrieta MD Unavailable [phone] Vanesa Juárez NP Unavailable [phone] Nicole Conroy Primary Care Provider Emily verdugo Encounter Details Date Type Department Care Team Description 04/09/2023 [facility] Medical Records [address] [place] [address] Levar Bill Social History Tobacco Use Types Packs/Day Years [...] Date/Time Associated Diagnosis Comments OUTSIDE LAB Routine 04/09/2023 documented in this encounter Results * OUTSIDE LAB (04/09/2023) Provider Default LAB documented in this encounter Visit Diagnoses Not on filedocumented in this encounter Care Teams Candy Attendant Relationship Specialty Start Date End Date Heaven Sherman MD PCP - General Internal Medicine 08/03/22 07/06/24 Nicole Conroy [address] [place] [address] [address] [place] [address] PCP - General Internal Medicine 07/07/24 Nawaf Austin MD [address] [place] [address] [address] [place] [address] Flake Cutter Operator Cardiovascular Disease 02/06/23 Vanesa Juárez NP [address] [place] [address] [address] [place] [address] Nurse Practitioner Cardiology 07/07/24 documented as of this encounter
--- OUTSIDE RECORDS SUMMARY | 2024-12-13 01:26 | XMS_ITS | Encounter Summary ---
Author Organization [facility] Address [address] [place] [address] Care Team Providers Care Jacquard Loom Heddles Tier Name Role Phone Heaven Sherman MD Primary Care Provider UnavailJuana Hawthorne MD Primary Care Provider [phone] Heaven Sherman MD Primary Care Provider Unavaila Nawaf Rodriguez MD Unavailable [phone] Vanesa Juárez NP Unavailable [phone] Nicole Conroy Primary Care Provider Unavaildrew verdugo Encounter Details Date Type Department Care Team Description 09/13/2019 Hospital Medical Records [address] [place] [address] Miguel-Alysia Mckeon PA-C Social History Tobacco Use Types Packs/Day [...] on filedocumented in this encounter Care Teams Jacquard Loom Heddles Tier Relationship Specialty Start Date End Date Heaven Sherman MD PCP - General Internal Medicine 08/13/18 01/03/21 Juana Levy MD [address] [place] [address] PCP - General Internal Medicine 01/04/21 08/02/22 Heaven Sherman MD [address] [place] [address] PCP - General Internal Medicine 08/03/22 07/06/24 Nicole Conroy [address] [place] [address] [address] [place] [address] PCP - General Internal Medicine 07/07/24 Nawaf Austin MD [address] [place] [address] [address] [place] [address] Supervisor Inspecting Cardiovascular Disease 02/06/23 Vanesa Juárez NP [address] [place] [address] [address] [place] [address] Nurse Practitioner Cardiology 07/07/24 documented as of this encounter
--- OUTSIDE RECORDS SUMMARY | 2024-12-13 01:26 | XMS_ITS | Encounter Summary ---
Author Organization [facility] Address [address] [place] [address] Care Team Providers Care Sweat Band Separator Name Role Phone Hood Ernst MD Primary Care Provider Unavail able Heaven Sherman MD Primary Care Provider Unavaila lucina Cabrera Pcp Primary Care Provider UnavailHeaven Morales MD Primary Care Provider Unavaila ble Juana Levy MD Primary Care Provider Heaven Sherman MD Primary Care Provider Unavaila Nawaf Rodriguez MD Unavailable [phone] Vanesa Juárez NP Unavailable [phone] Nicole Conroy Primary Care Provider Unavaila ble Encounter Details Date Type Department Care Team Description 02/10/2015 Frozen Meat Cutter Report Medical Records [address] [place] [address] Kathryn Mckeon Social History Tobacco Use Types Packs/Day Years [...] on filedocumented in this encounter Care Teams Sweat Band Separator Relationship Specialty Start Date End Date Hood Ernst MD PCP - General 01/02/00 08/15/15 Heaven Sherman MD PCP - General Internal Medicine 08/16/15 12/11/16 [facility] PCP - General Internal Medicine 12/12/16 08/12/18 Heaven Sherman MD PCP - General Internal Medicine 08/13/18 01/03/21 Juana Levy MD [address] [place] [address] PCP - General Internal Medicine 01/04/21 08/02/22 Heaven Sherman MD [address] [place] [address] PCP - General Internal Medicine 08/03/22 07/06/24 Nicole Conroy [address] [place] [address] [address] [place] [address] PCP - General Internal Medicine 07/07/24 Nawaf Austin MD [address] [place] [address] [address] [place] [address] Inspector Government Property Cardiovascular Disease 02/06/23 Vanesa Juárez NP [address] [place] [address] [address] [place] [address] Nurse Practitioner Cardiology 07/07/24 documented as of this encounter
--- OUTSIDE RECORDS SUMMARY | 2024-12-13 01:26 | XMS_ITS | Encounter Summary ---
Author Organization [facility] Address [address] [place] [address] Care Team Providers Care Research Pharmacist Name Role Phone Heaven Sherman MD Primary Care Provider Nawaf Arrieta MD Unavailable [phone] Vanesa Juárez NP Unavailable [phone] Nicole Conroy Primary Care Provider Emily verdugo Encounter Details Date Type Department Care Team Description 04/11/2023 [facility] Medical Records [address] [place] [address] Neno Mata MD Social History Tobacco Use Types Packs/Day [...] Associated Diagnosis Comments OUTSIDE PLAIN FILM Routine 04/11/2023 documented in this encounter Results * OUTSIDE PLAIN FILM (04/11/2023) Provider Abstract RADIOLOGY documented in this encounter Visit Diagnoses Not on filedocumented in this encounter Care Teams Research Pharmacist Relationship Specialty Start Date End Date Heaven Sherman MD PCP - General Internal Medicine 08/03/22 07/06/24 Nicole Conroy [address] [place] [address] [address] [place] [address] PCP - General Internal Medicine 07/07/24 Nawaf Austin MD [address] [place] [address] [address] [place] [address] Workers Compensation Attorney Cardiovascular Disease 02/06/23 Vanesa Juárez NP [address] [place] [address] [address] [place] [address] Nurse Practitioner Cardiology 07/07/24 documented as of this encounter
--- OUTSIDE RECORDS SUMMARY | 2024-12-13 01:26 | XMS_ITS | Encounter Summary ---
Author Organization [facility] Address [address] [place] [address] Care Team Providers Care Apple Sorter Name Role Phone Heaven Sherman MD Primary Care Provider Nawaf Arrieta MD Unavailable [phone] Vanesa Juárez NP Unavailable [phone] Nicole Conroy Primary Care Provider Emily verdugo Encounter Details Date Type Department Care Team Description 04/10/2023 Behavior Interventionist Report Medical Records [address] [place] [address] Heaven Sherman MD Social History Tobacco Use [...] on filedocumented in this encounter Care Teams Apple Sorter Relationship Specialty Start Date End Date Heaven Sherman MD PCP - General Internal Medicine 08/03/22 07/06/24 Nicole Conroy [address] [place] [address] [place] [address] PCP - General Internal Medicine 07/07/24 Nawaf Austin MD [address] [place] [address] [address] [place] [address] Gas Processing Plant Operator Cardiovascular Disease 02/06/23 Vanesa Juárez NP [address] [place] [address] [address] [place] [address] Nurse Practitioner Cardiology 07/07/24 documented as of this encounter
--- OUTSIDE RECORDS SUMMARY | 2024-12-13 01:26 | XMS_ITS | Encounter Summary ---
Author Organization [facility] Address [address] [place] [address] Care Team Providers Care Axle Bearing Polisher Name Role Phone Hood Ernst MD Primary Care Provider Unavail able Heaven Sherman MD Primary Care Provider Unavaila ble [facility], Pcp Primary Care Provider UnavailHeaven Morales MD Primary Care Provider Unavaila ble Juana Levy MD Primary Care Provider [phone] Heaven Sherman MD Primary Care Provider Unavaila ble Nawaf Austin MD Unavailable [phone] Vanesa Juárez NP Unavailable [phone] Nicole Conroy Primary Care Provider Unavaila ble Reason for Referral * Specialist (Urgent) - Authorized/Booked Specialty Diagnoses / Procedures Referred By Contlisa t Referred To Contact Neurology Procedures REFERRAL TO EEG Hood Ernst MD External Neurology Referral ID Status Reason Start Date Expiration Date V isits Requested Visits Authorized SEE REVIEW 02/24/15 Authorized/ Booked 02/24/2015 05/27/2015 1 1 Reason for Visit * Reason Onset Date Comments Registered Nurse Feedback 02/22/2015 EEG [facility] Encounter Details Date Type Department Care Team Description 02/22/2015 Telephone Medicine/Pediatrics - [address] [address] Hood Ernst MD Registered Nurse Feedback (EEG [facility]) Social History Tobacco Use Types Packs/Day Years Used Date Smoking Tobacco: Former Cigarettes 1 30 Q uit: 01/16/2011 Smokeless Tobacco: Never Comments:started smoking at 15 Alcohol Use Standard Drinks/Week Comments No 0 (1 standard drink = 0.6 oz pur e alcohol) Sex Assigned at Date Recorded Not on file documented as of this encounter Miscellaneous Notes * Telephone Encounter - Hood Ernst MD - 02/24/2015 11:51 AM EDT Completed,. Thank you. * Telephone Encounter - Vivian Vargas - 02/24/2015 9:18 AM EDT The appointment is Booked at [facility], [facility], [address] [place] [address]. March 12, 2015 @ 9:00am No more than 3-4 hours sleep the night before No caffeine for 24 hours Need to fax new Order to [facility] @ [phone] * Telephone Encounter - Vivian Vargas - 02/24/2015 9:16 AM EDT Status: Signed The EEG does not have to be under sedation. Please notify the EEG lab thank you. We need a new Order Please review this patients new referral request. The referral has been pended. Please complete thefollowing: If approved> sign order If denied>please give instructions and route to your practice nursing pool. Practice nurse should inform referrals and the patient if denied. * Telephone Encounter - Vivian Vargas - 02/22/2015 9:07 AM EDT Called [phone] option#2 Spoke to Izabela she will clal me back to book this. documented in this encounter Plan of Treatment Not on file documented as of this encounter Visit Diagnoses Not on filedocumented in this encounter Care Teams Axle Bearing Polisher Relationship Specialty Start Date End Date Hood Ernst MD PCP - General 01/02/00 08/15/15 Heaven Sherman MD PCP - General Internal Medicine 08/16/15 12/11/16 [facility], Pcp PCP - General Internal Medicine 12/12/16 08/12/18 Heaven Sherman MD PCP - General Internal Medicine 08/13/18 01/03/21 Juana Levy MD [address] [place] [address] PCP - General Internal Medicine 01/04/21 08/02/22 Heaven Sherman MD [address] [place] [address] PCP - General Internal Medicine 08/03/22 07/06/24 Nicole Conroy [address] [place] [address] [address] [place] [address] PCP - General Internal Medicine 07/07/24 Nawaf Austin MD [address] [place] [address] [address] [place] [address] Makeup Sales Consultant Cardiovascular Disease 02/06/23 Vanesa Juárez NP [address] [place] [address] [address] [place] [address] Nurse Practitioner Cardiology 07/07/24 documented as of this encounter
--- OUTSIDE RECORDS SUMMARY | 2024-12-13 01:26 | XMS_ITS | Encounter Summary ---
Author Organization [facility] Address [address] [place] [address] Care Team Providers Care Wire Stretcher Name Role Phone Heaven Sherman MD Primary Care Provider Nawaf Arrieta MD Unavailable [phone] Vanesa Juárez NP Unavailable [phone] Nicole Conroy Primary Care Provider Emily verdugo Encounter Details Date Type Department Care Team Description 03/19/2024 [facility] Medical Records [address] [place] [address] Social History Tobacco Use Types Packs/Day Years [...] Associated Diagnosis Comments OUTSIDE PLAIN FILM Routine 03/19/2024 documented in this encounter Results * OUTSIDE PLAIN FILM (03/19/2024) Provider Default RADIOLOGY documented in this encounter Visit Diagnoses Not on filedocumented in this encounter Care Teams Wire Stretcher Relationship Specialty Start Date End Date Heaven Sherman MD PCP - General Internal Medicine 08/03/22 07/06/24 Nicole Conroy [address] [place] [address] [address] [place] [address] PCP - General Internal Medicine 07/07/24 Nawaf Austin MD [address] [place] [address] [address] [place] [address] Botanical Technical Officer Cardiovascular Disease 02/06/23 Vanesa Juárez NP [address] [place] [address] [address] [place], [place] [phone] Nurse Practitioner Cardiology 07/07/24 documented as of this encounter
--- OUTSIDE RECORDS SUMMARY | 2024-12-13 01:26 | XMS_ITS | Encounter Summary ---
Author Organization [facility] Address [address] [place] [address] Care Team Providers Care Clinical Abstractor Name Role Phone Heaven Sherman MD Primary Care Provider Nawaf Arrieta MD Unavailable [phone] Vanesa Juárez NP Unavailable [phone] Nicole Conroy Primary Care Provider Emily verdugo Encounter Details Date Type Department Care Team Description 12/06/2022 Sewer Inspector Report Medical Records [address] [place] [address] Bandar Estevez Social History Tobacco Use Types Packs/Day Years [...] suspected to have Coronavirus/COVID-19? Unable to assess 11/15/2022 7:48 AM EST documented as of this encounter Plan of Treatment Not on file documented as of this encounter Visit Diagnoses Not on filedocumented in this encounter Care Teams Clinical Abstractor Relationship Specialty Start Date End Date Heaven Sherman MD PCP - General Internal Medicine 08/03/22 07/06/24 Nicole Conroy [address] [place] [address] PCP - General Internal Medicine 07/07/24 Nawaf Austin MD [address] [place] [address] [address] [place] [address] Group Fitness Department Head Cardiovascular Disease 02/06/23 Vanesa Juárez NP [address] [place] [address] [address]IVE [address] [place] [address] Nurse Practitioner Cardiology 07/07/24 documented as of this encounter
--- OUTSIDE RECORDS SUMMARY | 2024-12-13 01:26 | XMS_ITS | Encounter Summary ---
Author Organization [facility] Address [address] [place] [address] Care Team Providers Care Equipment Lead Name Role Phone Heaven Sherman MD Primary Care Provider Nawaf Arrieta MD Unavailable [phone] Vanesa Juárez NP Unavailable [phone] Nicole Conroy Primary Care Provider Emily verdugo Encounter Details Date Type Department Care Team Description 11/04/2022 [facility] Medical Records [address] [place] [address] Social History Tobacco Use Types Packs/Day Years [...] suspected to have Coronavirus/COVID-19? No / Unsure 10/26/2022 7:56 AM EST documented as of this encounter Plan of Treatment Not on file documented as of this encounter Visit Diagnoses Not on filedocumented in this encounter Care Teams Equipment Lead Relationship Specialty Start Date End Date Heaven Sherman MD PCP - General Internal Medicine 08/03/22 07/06/24 Nicole Conory [address] [place] [address] [address] [place] [address] PCP - General Internal Medicine 07/07/24 Nawaf Austin MD [address] [place] [address] [address] [place], [place] [phone] Football Scout Cardiovascular Disease 02/06/23 Vanesa Juárez NP [address] [place] [address] [address] [place], [place] [phone] Nurse Practitioner Cardiology 07/07/24 documented as of this encounter
--- OUTSIDE RECORDS SUMMARY | 2024-12-13 01:26 | XMS_ITS | Encounter Summary ---
Author Organization [facility] Address [address] [place] [address] Care Team Providers Care Business Office Technician Name Role Phone Heaven Sherman MD Primary Care Provider Nawaf Arrieta MD Unavailable [phone] Vanesa Juárez NP Unavailable [phone] Nicole Conroy Primary Care Provider Emily verdugo Encounter Details Date Type Department Care Team Description 04/12/2024 [facility] Medical Records [address] [place] [address] Social History Tobacco Use Types Packs/Day Years [...] Associated Diagnosis Comments OUTSIDE PLAIN FILM Routine 04/12/2024 documented in this encounter Results * OUTSIDE PLAIN FILM (04/12/2024) Provider Abstract RADIOLOGY documented in this encounter Visit Diagnoses Not on filedocumented in this encounter Care Teams Business Office Technician Relationship Specialty Start Date End Date Heaven Sherman MD PCP - General Internal Medicine 08/03/22 07/06/24 Nicole Conroy [address] [place] [address] [address] [place] [address] PCP - General Internal Medicine 07/07/24 Nawaf Austin MD [address] [place] [address] [address] [place] [address] Wall Mirror Department Supervisor Cardiovascular Disease 02/06/23 Vanesa Juárez NP [address] [place] [address] [address] [place] [address] Nurse Practitioner Cardiology 07/07/24 documented as of this encounter
--- OUTSIDE RECORDS SUMMARY | 2024-12-13 01:26 | XMS_ITS | Encounter Summary ---
Author Organization Formerly [facility] Address [address] [place] [address] Care Team Providers Care Overseer [employer] Name Role Phone Heaven Sherman MD Primary Care Provider Nawaf Arrieta MD Unavailable [phone] Vanesa Juárez NP Unavailable [phone] Nicole Conroy Primary Care Provider Emily verdugo Encounter Details Date Type Department Care Team Description 01/14/2023 [facility] Medical Records [address] [place] [id number] Social History Tobacco Use Types Packs/Day Years [...] Date/Time Associated Diagnosis Comments OUTSIDE CT Routine 01/14/2023 documented in this encounter Results * OUTSIDE CT (01/14/2023) Provider Abstract RADIOLOGY documented in this encounter Visit Diagnoses Not on filedocumented in this encounter Care Teams Overseer [employer]her Kitchen Relationship Specialty Start Date End Date Heaven Sherman MD PCP - General Internal Medicine 10/20/22 9/22/24 Nicole Conroy [address] [place] [address] [address] [place] [address] PCP - General Internal Medicine 07/07/24 Nawaf Austin MD [address] [place] [address] [address] [place] [address] Line Controller Cardiovascular Disease 02/06/23 Vanesa Juárez NP [address] [place] [address] DR[address] [place] [address] Nurse Practitioner Cardiology 07/07/24 documented as of this encounter
--- OUTSIDE RECORDS SUMMARY | 2024-12-13 01:26 | XMS_ITS | Encounter Summary ---
Author Organization [facility] Address [address] [place] [address] Care Team Providers Care Material Reclaimer Name Role Phone Heaven Sherman MD Primary Care Provider Nawaf Arrieta MD Unavailable [phone] Vanesa Juárez NP Unavailable [phone] Nicole Conroy Primary Care Provider Emily verdugo Encounter Details Date Type Department Care Team Description 11/26/2023 A/C Tech Report Medical Records [address] [place] [id number] Jovon Calderon Social History Tobacco Use Types Packs/Day Years [...] on filedocumented in this encounter Care Teams Material Reclaimer Relationship Specialty Start Date End Date Heaven Sherman MD PCP - General Internal Medicine 08/03/22 07/06/24 Nicole Conroy [address] [place] [address] [place] [id number] PCP - General Internal Medicine 07/07/24 Nawaf Austin MD [address] [place] [address] [place] [id number] Multiple Spindle Screw Machine Operator Cardiovascular Disease 02/06/23 Vanesa Juárez NP [address] [place] [address] [address]IVE [address] [place] [address] Nurse Practitioner Cardiology 07/07/24 documented as of this encounter
--- OUTSIDE RECORDS SUMMARY | 2024-12-13 01:26 | XMS_ITS | Encounter Summary ---
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 16:52 ET XR Hip 2-3 Views Left Final Result FINDINGS/IMPRESSION: No acute fracture. Anatomic alignment. Lumbosacral hardware. -------- FINAL REPORT -------- Dictated By: Christin Oneill Dictated Date: 12/01/2024 16:26 ET Assigned Physician: Christin Oneill Reviewed and Electronically Signed By: Christin Oneill Signed Date: 12/01/2024 16:29 ET Workstation ID: [id number] Transcribed By: Self Edit Transcribed Date: 12/01/2024 16:26 ET I have discussed the incidental/abnormal imaging and/or lab abnormalities with the patient and haveinstructed them the need for further evaluation and workup with their primary care doctor. The laboratory results, imaging results and other diagnostic exam results were reviewed in the EMR. EKG Interpretation Critical Care Time None ? Differential Diagnosis Medical Decision Making Medical Decision Making Medications sodium chloride 0.9 % infusion (125 mL/hr intravenous Rate/Dose Verify 12/01/24 1639) ondansetron (PF) (ZOFRAN) injection 4 mg (4 mg intravenous Given 12/01/24 142) morphine injection 4 mg (4 mg intravenous Given 12/01/24 142) ketorolac (TORADOL) injection 15 mg (15 mg intravenous Given 12/01/24 142) dexAMETHasone (DECADRON) injection 10 mg (10 mg intravenous Given 12/01/24 142) morphine injection 4 mg (4 mg intravenous Given 12/01/24 1702) ED Course as of 12/01/241718 Mon Dec 01, 2024 1556 Patient is received in signout. Imaging is pending at this time. CPK is not elevated there isno evidence of an acute urinary tract infection. [RO] 1710 No acute findings on imaging. [facility] reveals a recent prescription for 30 days of oxycodone 10 mg. Patient will be discharged home with Naprosyn and methocarbamol. [RO] ED Course User Index [RO] SARA Roy Clinical Impressions as of 12/01/241718 Acute exacerbation of chronic low back pain Procedures Procedures Diagnosis 1. Acute exacerbation of chronic low back pain Disposition Discharge ED Prescriptions Medication Sig Dispense Start Date End Date Auth. Provider naproxen (NAPROSYN) 500 mg tablet Take 1 tablet (500 mg total) by mouth 2 (two) times a day with meals for 10 days. 20 tablet 12/01/2024 12/11/2024 SARA Roy methocarbamoL (ROBAXIN) 750 mg tablet Take 1 tablet (750 mg total) by mouth 4 (four) times a day for 7 days. 28 each 12/01/2024 12/08/2024 SARA Roy Physician Attestation SARA Roy 12/01/24 1556 SARA Roy 12/01/24 1719 Cosigned by Finesse Elias DO at 12/10/2024 3:41 PM EST documented in this encounter Plan of Treatment Upcoming Encounters Date Type Department Care Team (Late st Contact Info) Description 12/26/2024 7:50 AM EDT Office Visit [facility] Cardiology [address] [place] [address] Nawaf Austin MD [address] [place] [address] [address] [place] [address] documented as of this encounter Procedures Procedure Name Priority Date/Time Associated Diagnosis Comments XR HIP 2-3 VIEWS LEFT STAT 12/01/2024 3:41 PM EST XR LUMBAR SPINE 2-3 VIEWS STAT 12/01/2024 3:41 PM EST COMPLETE BLOOD COUNT STAT 12/01/2024 2:24 PM EST CREATINE KINASE STAT 12/01/2024 2:24 PM EST BASIC METABOLIC PANEL STAT 12/01/2024 2:24 PM EST URINALYSIS WITH REFLEX MICROSCOPIC AND CULTURE STAT 12/01/2024 1:39 PM EST PORTER URINE CULTURE TUBE STAT 12/01/2024 1:39 PM EST URINALYSIS WITH REFLEX MICROSCOPIC AND CULTURE STAT 12/01/2024 1:39 PM EST CULTURE URINE STAT 12/01/2024 1:39 PM EST documented in this encounter Results * XR Hip 2-3 Views Left (12/01/2024 3:41 PM EST) Anatomical Region Laterality Modality Lower Extremities, Hip Left Radiograp hic Imaging 12/01/2024 4:26 PM EST Impressions 12/01/2024 4:29 PM EST FINDINGS/IMPRESSION: No acute fracture. ??Anatomic alignment. ??Lumbosacral hardware. -------- FINAL REPORT -------- Dictated By: Christin Oneill Dictated Date: 12/01/2024 16:26 ET Assigned Physician: Christin Oneill Reviewed and Electronically Signed By: Christin Oneill Signed Date: 12/01/2024 16:29 ET Workstation ID: [id number] Transcribed By: Self Edit Transcribed Date: 12/01/2024 [...] Signed Date: 12/01/2024 16:29 ET Workstation ID: [id number] Transcribed By: Self Edit Transcribed Date: 12/01/2024 [...] Signed Date: 12/01/2024 16:59 ET Workstation ID: [id number] Transcribed By: Self Edit Transcribed Date: 12/01/2024 [...] Signed Date: 12/01/2024 16:59 ET Workstation ID: [id number] Transcribed By: Self Edit Transcribed Date: 12/01/2024 16:52 ET Blayne RUIZ IMG XR PROCEDURES Final Resu lt * Creatine kinase (12/01/2024 2:24 PM EST) [facility] Total CK 53 22 - 269 unit/L LAB CHEMISTRY METHOD 12/01/2024 3:30 PM EST [facility] Blood Venous blood specimen / Unknown Venipuncture / Unknown 12/01/2024 2:24 PM EST 12/01/2024 2:51 PM EST Blayne RUIZ LAB BLOOD ORDERABLES Final R esult [facility] [address] [place] [address], [place] [phone] * (ABNORMAL) CBC (12/01/2024 2:24 PM EST) [facility] WBC 10.6 4.8 - 10.8 K/mcL LAB HEMETOLOGY METHOD 12/01/2024 3:00 PM EST [facility] RBC 5.00 4.50 - 5.50 M/mcL LAB HEMETOLOGY METHOD 12/01/2024 3:00 PM EST [facility] Hemoglobin 12.6(L) 13.5 - 17.5 g/dL LAB HEMETOLOGY METHOD 12/01/2024 3:00 PM EST [facility] Hematocrit 39.9(L) 42.0 - 54.0 % LAB HEMETOLOGY METHOD 12/01/2024 3:00 PM EST [facility] MCV 79.8 79.0 - 98.0 FL LAB HEMETOLOGY METHOD 12/01/2024 3:00 PM EST [facility] MCH 25.2(L) 27.0 - 32.0 pcg LAB HEMETOLOGY METHOD 12/01/2024 3:00 PM EST [facility] MCHC 31.6(L) 32.0 - 37.0 g/dL LAB HEMETOLOGY METHOD 12/01/2024 3:00 PM EST [facility] RDW 15.0 11.0 - 15.0 % LAB HEMETOLOGY METHOD 12/01/2024 3:00 PM [facility] Platelets 379 130 - 400 K/mcL LAB HEMETOLOGY METHOD 12/01/2024 3:00 PM [facility] MPV 9.0 7.0 - 11.0 FL LAB HEMETOLOGY METHOD 12/01/2024 3:00 PM EST [facility] NRBC 0.0 <1.0 % LAB HEMETOLOGY METHOD 12/01/2024 3:00 PM [facility] NRBC Absolute 0.00 <0.10 K/mcL LAB HEMETOLOGY METHOD 12/01/2024 3:00 PM [facility] Blood Venous blood specimen / Unknown Venipuncture / Unknown 12/01/2024 2:24 PM EST 12/01/2024 2:51 PM EST Blayne RUIZ LAB BLOOD ORDERABLES Final R esult [facility] [address] [place] [address], * Basic Metabolic Panel (BMP) (12/01/2024 2:24 PM EST) [facility] Sodium 136 133 - 145 mmol/L LAB CHEMISTRY METHOD 12/01/2024 3:20 PM EST [facility] Potassium 4.3 3.5 - 5.5 mmol/L LAB CHEMISTRY METHOD 12/01/2024 3:20 PM [facility] Chloride 102 96 - 110 mmol/L LAB CHEMISTRY METHOD 12/01/2024 3:20 PM [facility] CO2 26 21 - 32 mmol/L LAB CHEMISTRY METHOD 12/01/2024 3:20 PM [facility] Anion Gap 8 3 - 11 LAB CHEMISTRY METHOD 12/01/2024 3:20 PM [facility] Glucose 97 70 - 100 mg/dL LAB CHEMISTRY METHOD 12/01/2024 3:20 PM [facility] BUN 9 5 - 25 mg/dL LAB CHEMISTRY METHOD 12/01/2024 3:20 PM [facility] Creatinine 0.73 0.70 - 1.30 mg/dL LAB CHEMISTRY METHOD 12/01/2024 3:20 PM [facility] eGFR 103 >=60 mL/min/1. 73m2 LAB CHEMISTRY METHOD 12/01/2024 3:20 PM [facility] Comment:Calculation based on the??Chronic Kidney Disease Epidemiology Collaboration (CKD-EPI) equation refit??without adjustment for race. BUN/Creatinine Ratio 12.3 LAB CHEMISTRY METHOD 12/01/2024 3:20 PM [facility] Calcium 9.7 8.5 - 10.5 mg/dL LAB CHEMISTRY METHOD 12/01/2024 3:20 PM [facility] Blood Venous blood specimen / Unknown Venipuncture / Unknown 12/01/2024 2:24 PM EST 12/01/2024 2:51 PM EST Blayne RUIZ LAB BLOOD ORDERABLES Final R esult [facility] [address] [place] [address], * (ABNORMAL) Culture urine (12/01/2024 1:39 PM EST) Culture, Urine >100,000 CFU/mL Pseudomonas aeruginosa(A) SARAY 12/03/2024 10:52 AM EST [facility] Comment: This is an [...] Pseudomonas aeruginosa Levofloxacin SARAY 0.5 ug/ml: Susceptible Brett Payton MD LAB MICROBIOLOGY - GENERA L ORDERABLES Final Result Performing Organization Address City/[facility]/ZIP Co de Phone Number [facility] [address] [place] [address], [place] [phone] * Porter urine culture tube (12/01/2024 1:39 PM EST) Pathologist [facility] Extra Tube Hold for add-ons. 12/01/2024 3:01 PM EST [facility] Comment:Auto resulted. Urine Urine specimen obtained by clean catch procedure / Unknown Non-blood Collection / Unknown 12/01/2024 1:39 PM EST 12/01/2024 1:53 PM EST Brett Payton MD LAB URINE ORDERABLES Clare l Result [facility] [address] [place] [address], [place] [phone] * (ABNORMAL) Urinalysis with reflex microscopic and culture (12/01/2024 1:39 PM [facility]) Specific [place] Urine 1.008 1.003 - 1.030 LAB URINALYSIS - AUTOMATED METHOD 12/01/2024 2:05 PM [facility] pH, Urine 6.5 5.0 - 8.0 pH LAB URINALYSIS - AUTOMATED METHOD 12/01/2024 2:05 PM [facility] Leukocytes, Urine Moderate(A) Negative LAB URINALYSIS - AUTOMATED METHOD 12/01/2024 2:05 PM [facility] Nitrite, Urine Negative Negative LAB URINALYSIS - AUTOMATED METHOD 12/01/2024 2:05 PM [facility] Protein, Urine Negative <=Trace mg/dL LAB URINALYSIS - AUTOMATED METHOD 12/01/2024 2:05 PM [facility] Glucose, Urine Negative Negative mg/dL LAB URINALYSIS - AUTOMATED METHOD 12/01/2024 2:05 PM [facility] Ketones, Urine Negative Negative mg/dL LAB URINALYSIS - AUTOMATED METHOD 12/01/2024 2:05 PM [facility] Urobilinogen , Urine 0.2 0.2 - 1.0 mg/dL LAB URINALYSIS - AUTOMATED METHOD 12/01/2024 2:05 PM [facility] Bilirubin, Urine Negative Negative LAB URINALYSIS - AUTOMATED METHOD 12/01/2024 2:05 PM [facility] Blood, Urine Negative Negative LAB URINALYSIS - AUTOMATED METHOD 12/01/2024 2:05 PM [facility] RBC, Urine 2.1 0 - 4 /HPF LAB URINALYSIS - AUTOMATED METHOD 12/01/2024 2:05 PM [facility] WBC, Urine 91.4(H) 0 - 4 /HPF LAB URINALYSIS - AUTOMATED METHOD 12/01/2024 2:05 PM [facility] Squamous Epithelial, Urine 1 0 - 60 /LPF LAB URINALYSIS - AUTOMATED METHOD 12/01/2024 2:05 PM EST [facility] Bacteria, Urine Negative Negative /HPF LAB URINALYSIS - AUTOMATED METHOD 12/01/2024 2:05 PM EST [facility] Hyaline Casts, Urine 0.8 0 - 3 /LPF LAB URINALYSIS - AUTOMATED METHOD 12/01/2024 2:05 PM [facility] Urine Urine specimen obtained by clean catch procedure / Unknown Non-blood Collection / Unknown 12/01/2024 1:39 PM EST 12/01/2024 1:53 PM EST us Brett Payton MD LAB URINE ORDERABLES Clare naik Result [facility] [address] [place] [address], documented in this encounter Visit Diagnoses Diagnosis Acute exacerbation of chronic low back pain- Primary documented in this encounter Administered Medications Inactive Administered Medications - up to 3 most recent administrations Medication Order MAR Action Action Date Dose Rate Site dexAMETHasone (DECADRON) injection 10 mg 10 mg, intravenous, Once, On Sun12/01/24 at 1355, For 1 dose Given 12/01/2024 2:29 PM EST 10 mg ketorolac (TORADOL) injection 15 mg 15 mg, intravenous, Once, On Sun12/01/24 at 1355, For 1 dose Given 12/01/2024 2:29 PM EST 15 mg morphine injection 4 mg 4 mg, intravenous, Once, On Sun12/01/24 at 1355, For 1 dose Given 12/01/2024 2:29 PM EST 4 mg morphine injection 4 mg 4 mg, intravenous, Once, On Sun12/01/24 at 1636, For 1 dose Given 12/01/2024 5:02 PM EST 4 mg ondansetron (PF) (ZOFRAN) injection 4 mg 4 mg, intravenous, Once, On Sun12/01/24 at 1355, For 1 dose Given 12/01/2024 2:29 PM EST 4 mg sodium chloride 0.9 % infusion 125 mL/hr, intravenous, Continuous, Starting on Sun12/01/24 at 1355 Rate/Dose Verify 12/01/2024 4:39 PM EST 125 mL/hr 125 mL/hr New Bag 12/01/2024 2:39 PM EST 125 mL/hr 125 mL/hr documented in this encounter Active and Recently Administered Medications Times are shown in EST. Scheduled Medication Order 11/29/2024 11/30/2024 12/01/2024 dexAMETHasone (DECADRON) injection 10 mg (COMPLETED) 10 mg, intravenous, Once, On Sun12/01/24 at 1355, For 1 dose 1429 (Given - Provid er: Roseann Diana RN) ketorolac (TORADOL) injection 15 mg (COMPLETED) 15 mg, intravenous, Once, On Sun12/01/24 at 1355, For 1 dose 1429 (Given - Provid er: Roseann Diana RN) morphine injection 4 mg (COMPLETED) 4 mg, intravenous, Once, On Sun12/01/24 at 1355, For 1 dose 1429 (Given - Provid er: Roseann Diana RN) morphine injection 4 mg (COMPLETED) 4 mg, intravenous, Once, On Sun12/01/24 at 1636, For 1 dose 1702 (Given - Provid er: Roseann Diana RN) ondansetron (PF) (ZOFRAN) injection 4 mg (COMPLETED) 4 mg, intravenous, Once, On Sun12/01/24 at 1355, For 1 dose 1429 (Given - Provid er: Roseann Diana RN) Continuous Medication Order 11/29/2024 11/30/2024 12/01/2024 sodium chloride 0.9 % infusion 125 mL/hr, intravenous, Continuous, Starting on Sun12/01/24 at 1355 1439 (New Bag - Prov ider: Roseann Diana RN)1639 (Rate/Dose Verify - Provider: Roseann Diana RN)1740 (Stopped - Provider: Roseann Diana RN) documented in this encounter Care Teams Cook Mess Relationship Specialty Start Date End Date Nicole Conroy MD [address] [place] [address] PCP - General Internal Medicine 09/30/24 documented as of this encounter
--- OUTSIDE RECORDS SUMMARY | 2024-12-13 01:26 | XMS_ITS | Encounter Summary ---
Author Organization [place] [address] Care Team Providers Care Behavioral Psychologist Name Role Phone Nicole Conroy MD Primary Care Provider [phone] Encounter Details Date Type Department Care Team (Late st Contact Info) Description 11/10/[address] [facility] - Main Lab [address] [facility] [place] [address] Alba Adams MD [address] [place] [address] Epilepsy, unspecified, not intractable, without status epilepticus (CMS/HCC); Essential (primary) hypertension; Anemia, unspecified; Traumatic ischemia of muscle, initial encounter (CMS/HCC); Repeated falls Social History Tobacco Use Types Packs/Day Years [...] Description 12/26/2024 7:50 AM EDT Office Visit [facility] Cardiology [facility] [address] [place] [address] Nawaf Austin MD [address] [place] [address] [address] [place] [address] documented as of this encounter Procedures Procedure Name Priority Date/Time Associated Diagnosis Comments COMPLETE BLOOD COUNT Routine 11/10/2024 6:46 AM EST Epilepsy, unspecified, not intractable, without status epilepticus (CMS/HCC) Essential (primary) hypertension Anemia, unspecified Traumatic ischemia of muscle, initial encounter ([facility]) Repeated falls COMPREHENSIVE METABOLIC PANEL Routine 11/10/2024 6:46 AM EST Epilepsy, unspecified, not intractable, without status epilepticus (CMS/HCC) Essential (primary) hypertension Anemia, unspecified Traumatic ischemia of muscle, initial encounter ([facility]) Repeated falls documented in this encounter Results * (ABNORMAL) Comprehensive metabolic panel (11/10/2024 6:46 AM EST) Sodium 136 133 - 145 mmol/L LAB CHEMISTRY METHOD 11/10/2024 3:49 PM [facility] Potassium 3.8 3.5 - 5.5 mmol/L LAB CHEMISTRY METHOD 11/10/2024 3:49 PM [facility] Chloride 100 96 - 110 mmol/L LAB CHEMISTRY METHOD 11/10/2024 3:49 PM [facility] CO2 30 21 - 32 mmol/L LAB CHEMISTRY METHOD 11/10/2024 3:49 PM [facility] Anion Gap 6 3 - 11 LAB CHEMISTRY METHOD 11/10/2024 3:49 PM [facility] Glucose 75 70 - 100 mg/dL LAB CHEMISTRY METHOD 11/10/2024 3:49 PM [facility] BUN 11 5 - 25 mg/dL LAB CHEMISTRY METHOD 11/10/2024 3:49 PM [facility] Creatinine 0.64(L) 0.70 - 1.30 mg/dL LAB CHEMISTRY METHOD 11/10/2024 3:49 PM [facility] eGFR 107 >=60 mL/min/1. 73m2 LAB CHEMISTRY METHOD 11/10/2024 3:49 PM [facility] Comment:Calculation based on the??Chronic Kidney Disease Epidemiology Collaboration (CKD-EPI) equation refit??without adjustment for race. BUN/Creatinine Ratio 17.2 LAB CHEMISTRY METHOD 11/10/2024 3:49 PM [facility] Calcium 8.7 8.5 - 10.5 mg/dL LAB CHEMISTRY METHOD 11/10/2024 3:49 PM [facility] AST (SGOT) 78(H) 10 - 42 unit/L LAB CHEMISTRY METHOD 11/10/2024 3:49 PM [facility] ALT (SGPT) 63(H) 10 - 60 unit/L LAB CHEMISTRY METHOD 11/10/2024 3:49 PM [facility] Alkaline Phosphatase 114 42 - 121 unit/L LAB CHEMISTRY METHOD 11/10/2024 3:49 PM [facility] Total Protein 5.4(L) 6.0 - 8.0 g/dL LAB CHEMISTRY METHOD 11/10/2024 3:49 PM [facility] Albumin 2.7(L) 3.2 - 5.0 g/dL LAB CHEMISTRY METHOD 11/10/2024 3:49 PM [facility] Total Bilirubin 0.5 0.0 - 1.4 mg/dL LAB CHEMISTRY METHOD 11/10/2024 3:49 PM [facility] Blood Venous blood specimen / Unknown Venipuncture / Unknown 11/10/2024 6:46 AM EST 11/10/2024 12:38 PM EST us Fahim A Angie MD LAB BLOOD ORDERABLES Final Resul t [facility] [address] [place] [address], * (ABNORMAL) Complete blood count (11/10/2024 6:46 AM EST) WBC 12.7(H) 4.8 - 10.8 K/mcL LAB HEMETOLOGY METHOD 11/10/2024 2:34 PM EST [facility] RBC 4.20(L) 4.50 - 5.50 M/mcL LAB HEMETOLOGY METHOD 11/10/2024 2:34 PM [facility] Hemoglobin 10.6(L) 13.5 - 17.5 g/dL LAB HEMETOLOGY METHOD 11/10/2024 2:34 PM [facility] Hematocrit 34.1(L) 42.0 - 54.0 % LAB HEMETOLOGY METHOD 11/10/2024 2:34 PM [facility] MCV 81.4 79.0 - 98.0 FL LAB HEMETOLOGY METHOD 11/10/2024 2:34 PM [facility] MCH 25.3(L) 27.0 - 32.0 pcg LAB HEMETOLOGY METHOD 11/10/2024 2:34 PM [facility] MCHC 31.1(L) 32.0 - 37.0 g/dL LAB HEMETOLOGY METHOD 11/10/2024 2:34 PM [facility] RDW 15.3(H) 11.0 - 15.0 % LAB HEMETOLOGY METHOD 11/10/2024 2:34 PM [facility] Platelets 341 130 - 400 K/mcL LAB HEMETOLOGY METHOD 11/10/2024 2:34 PM [facility] MPV 9.3 7.0 - 11.0 FL LAB HEMETOLOGY METHOD 11/10/2024 2:34 PM EST [facility] NRBC 0.0 <1.0 % LAB HEMETOLOGY METHOD 11/10/2024 2:34 PM EST [facility] NRBC Absolute 0.00 <0.10 K/mcL LAB HEMETOLOGY METHOD 11/10/2024 2:34 PM EST [facility] Blood Venous blood specimen / Unknown Venipuncture / Unknown 11/10/2024 6:46 AM EST 11/10/2024 12:38 PM EST us Alba Adams MD LAB BLOOD ORDERABLES Final Resul t [facility] [address] [place] [address], documented in this encounter Visit Diagnoses Diagnosis Epilepsy, unspecified, not intractable, without status epilepticus (CMS/HCC) Essential (primary) hypertension Unspecified essential hypertension Anemia, unspecified Traumatic ischemia of muscle, initial encounter (CMS/HCC) Repeated falls documented in this encounter Care Teams Behavioral Psychologist Relationship Specialty Start Date End Date Nicole Conroy MD [address] [place] [address] PCP - General Internal Medicine 09/30/24 documented as of this encounter
--- OUTSIDE RECORDS SUMMARY | 2024-12-13 01:26 | XMS_ITS | Encounter Summary ---
Author [facility] Address [address] [place] [address] Care Team Providers Care Booker Name Role Phone Heaven Sherman MD Primary Care Provider Nawaf Arrieta MD Unavailable [phone] Vanesa Juárez NP Unavailable [phone] Nicole Conroy Primary Care Provider Emily verdugo Encounter Details Date Type Department Care Team Description 01/22/2024 Hospital Medical Records [address] [place] [id number] [place] [address] Social History Tobacco Use Types Packs/Day Years [...] Date/Time Associated Diagnosis Comments OUTSIDE MRI/MRA Routine 01/23/2024 OUTSIDE EKG Routine 01/22/[address] Routine 01/22/[address] Routine 01/22/2024 OUTSIDE PLAIN FILM Routine 01/22/2024 documented in this encounter Results * OUTSIDE MRI/MRA (01/23/2024) Provider Default RADIOLOGY * OUTSIDE PLAIN FILM (01/22/2024) Provider Default RADIOLOGY * OUTSIDE CT (01/22/2024) Provider Default RADIOLOGY * OUTSIDE CT (01/22/2024) Provider Default RADIOLOGY * OUTSIDE EKG (01/22/2024) Provider Default CARDIOLOGY documented in this encounter Visit Diagnoses Not on filedocumented in this encounter Care Teams Booker Relationship Specialty Start Date End Date Heaven Sherman MD PCP - General Internal Medicine 08/03/22 07/06/24 Nicole Conroy [address] [place] [address] [address] [place] [address] PCP - General Internal Medicine 07/07/24 Nawaf Austin MD [address] [place] [address] [address] [place] [address] Weight Training Instructor Cardiovascular Disease 02/06/23 Vanesa Juárez NP [address] [place] [address] [address] [place] [address] Nurse Practitioner Cardiology 07/07/24 documented as of this encounter
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
--- OUTSIDE RECORDS SUMMARY | 2024-12-13 01:27 | XMS_ITS | Encounter Summary ---
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 No / Unsure 10/11/2020 1:31 PM EST documented as of this encounter Plan of Treatment Not on file documented as of this encounter Visit Diagnoses Not on filedocumented in this encounter Care Teams News Reel Cameraman Relationship Specialty Start Date End Date Heaven Sherman MD PCP - General Internal Medicine 08/13/18 01/03/21 Juana Levy MD [address] [place] [id number] PCP - General Internal Medicine 01/04/21 08/02/22 Heaven Sherman MD [address] [place] [address] PCP - General Internal Medicine 08/03/22 07/06/24 Nicole Conroy [address] [place] [address] [address] [place] [address] PCP - General Internal Medicine 07/07/24 Nawaf Austin MD [address] [place] [address] [address] [place] [address] Eap Clinician Cardiovascular Disease 02/06/23 Vanesa Juárez NP [address] [place] [address] [address] [place] [address] Nurse Practitioner Cardiology 07/07/24 documented as of this encounter
--- OUTSIDE RECORDS SUMMARY | 2024-12-13 01:27 | XMS_ITS | Encounter Summary ---
Author Organization [facility] Address [address] [place] [address] Care Team Providers Care Locomotive Pipe Fitter Name Role Phone Heaven Sherman MD Primary Care Provider Unavaila lucina Cabrera Pcp Primary Care Provider Heaven Morales MD Primary Care Provider Unavaila Juana Markham MD Primary Care Provider [phone] Heaven Sherman MD Primary Care Provider Unavaila Nawaf Rodriguez MD Unavailable [phone] Vanesa Juárez NP Unavailable [phone] Nicole Conroy Primary Care Provider Unavaila lucina Encounter Details Date Type Department Care Team Description 10/24/2016 Wellness Visit Medical Records [address] [place] [address] Heaven Sherman MD Social History Tobacco Use [...] on filedocumented in this encounter Care Teams Locomotive Pipe Fitter Relationship Specialty Start Date End Date Heaven Sherman MD PCP - General Internal Medicine 08/16/15 12/11/16 [facility], Pcp PCP - General Internal Medicine 12/12/16 08/12/18 Heaven Sherman MD PCP - General Internal Medicine 08/13/18 01/03/21 Juana Levy MD [address] [place] [id number] PCP - General Internal Medicine 01/04/21 08/02/22 Heaven Sherman MD [address] [place] [address] PCP - General Internal Medicine 08/03/22 07/06/24 Nicole Conroy [address] [place] [address] [address] [place] [address] PCP - General Internal Medicine 07/07/24 Nawaf Austin MD [address] [place] [address] [address] [place] [address] Field Mechanic Cardiovascular Disease 02/06/23 Vanesa Juárez NP [address] [place] [address] [address] [place] [address] Nurse Practitioner Cardiology 07/07/24 documented as of this encounter
--- OUTSIDE RECORDS SUMMARY | 2024-12-13 01:27 | XMS_ITS | Encounter Summary ---
Author Organization [facility] Address [address] [place] [address] Care Team Providers Care Appeals Reviewer Veteran Name Role Phone Juana Levy MD Primary Care Provider Heaven Sherman MD Primary Care Provider Unavaila Nawaf Rodriguez MD Unavailable [phone] Vanesa Juárez NP Unavailable [phone] Nicole Conroy Primary Care Provider Unavaila lucina Encounter Details Date Type Department Care Team Description 05/03/2021 Industrial Safety Engineer Report Medical Records [address] [place] [address] Ivette Gomez MD Social History Tobacco Use [...] have Coronavirus / COVID-19? No / Unsure 04/28/2021 9:27 AM EDT documented as of this encounter Plan of Treatment Not on file documented as of this encounter Visit Diagnoses Not on filedocumented in this encounter Care Teams Appeals Reviewer Veteran Relationship Specialty Start Date End Date Juana Levy MD [address] [place] [address] PCP - General Internal Medicine 01/04/21 08/02/22 Heaven Sherman MD [address] [place] [address] PCP - General Internal Medicine 08/03/22 07/06/24 Nicole Conroy [address] [place] [address] [address] [place] [address] PCP - General Internal Medicine 07/07/24 Nawaf Austin MD [address] [place] [address] [place] [address] Household Refrigerator Mechanic Cardiovascular Disease 02/06/23 Vanesa Juárez NP [address] [place] [address] [address] [place] [address] Nurse Practitioner Cardiology 07/07/24 documented as of this encounter
--- OUTSIDE RECORDS SUMMARY | 2024-12-13 01:27 | XMS_ITS | Encounter Summary ---
Author Organization [facility] Address [address] [place] [address] Care Team Providers Care Equity Research Analyst Name Role Phone Hood Ernst MD Primary Care Provider Unavail able Heaven Sherman MD Primary Care Provider Unavaila lucina Cabrera, Pcp Primary Care Provider UnavailHeaven Morales MD Primary Care Provider Unavaila ble Juana Levy MD Primary Care Provider [phone] Heaven Sherman MD Primary Care Provider Unavaila Nawaf Rodriguez MD Unavailable Vanesa Juárez NP Unavailable Nicole Conroy Primary Care Provider Unavaila ble Encounter Details Date Type Department Care Team Description 02/27/2006 [facility] Medical Records [address] [place] [address] Abstract, Provider Social History Tobacco Use Types [...] on filedocumented in this encounter Care Teams Equity Research Analyst Relationship Specialty Start Date End Date Hood Ernst MD PCP - General 01/02/00 08/15/15 Heaven Sherman MD PCP - General Internal Medicine 08/16/15 12/11/16 [facility], Pcp PCP - General Internal Medicine 12/12/16 08/12/18 Heaven Sherman MD PCP - General Internal Medicine 08/13/18 01/03/21 Juana Levy MD [address] [place] [address] PCP - General Internal Medicine 01/04/21 08/02/22 Heaven Sherman MD [address] [place] [address] PCP - General Internal Medicine 08/03/22 07/06/24 Nicole Conroy [address] [place] [address] [address] [place] [address] PCP - General Internal Medicine 07/07/24 Nawaf Austin MD [address] [place] [address] [address]IVE [address] [place] [address] It Corporate Recruiter Cardiovascular Disease 02/06/23 Vanesa Juárez NP [address] [place] [address] DR[address] [place] [address] Nurse Practitioner Cardiology 07/07/24 documented as of this encounter
--- OUTSIDE RECORDS SUMMARY | 2024-12-13 01:27 | XMS_ITS | Encounter Summary ---
Author Organization [facility] Address [address] [place] [address] Care Team Providers Care Budder Name Role Phone Heaven Sherman MD Primary Care Provider Nawaf Arrieta MD Unavailable [phone] Vanesa Juárez NP Unavailable [phone] Nicole Conroy Primary Care Provider Emily verdugo Encounter Details Date Type Department Care Team Description 04/24/2024 Hospital Medical Records [address] [place] [id number] [place] [address] Social History Tobacco Use Types Packs/Day Years [...] Date/Time Associated Diagnosis Comments OUTSIDE EKG Routine 04/24/[address] Routine 04/24/2024 OUTSIDE PLAIN FILM Routine 04/24/2024 documented in this encounter Results * OUTSIDE CT (04/24/2024) Provider Default RADIOLOGY * OUTSIDE PLAIN FILM (04/24/2024) Provider Default RADIOLOGY * OUTSIDE EKG (04/24/2024) Provider Default CARDIOLOGY documented in this encounter Visit Diagnoses Not on filedocumented in this encounter Care Teams Budder Relationship Specialty Start Date End Date Heaven Sherman MD PCP - General Internal Medicine 08/03/22 07/06/24 Nicole Conroy [address] [place] [address] [address] [place] [address] PCP - General Internal Medicine 07/07/24 Nawaf Austin MD [address] [place] [address] [address] [place] [address] Budder Cardiovascular Disease 02/06/23 Vanesa Juárez NP [address] [place] [address] [address] [place] [address] Nurse Practitioner Cardiology 07/07/24 documented as of this encounter
--- OUTSIDE RECORDS SUMMARY | 2024-12-13 01:27 | XMS_ITS | Encounter Summary ---
Author Organization [facility] Address [address] [place] [address] Care Team Providers Care Motor Assembler Name Role Phone Juana Levy MD Primary Care Provider [phone] Heaven Sherman MD Primary Care Provider Unavaila Nawaf Rodriguez MD Unavailable [phone] Vanesa Juárez NP Unavailable [phone] Nicole Conroy Primary Care Provider Unavaila lucina Encounter Details Date Type Department Care Team Description 01/24/2021 Superintendent Drilling And Production Report Medical Records [address] [place] [address] Ivette Gomez MD Social History Tobacco Use [...] have Coronavirus / COVID-19? No / Unsure 01/24/2021 9:27 AM EDT documented as of this encounter Plan of Treatment Not on file documented as of this encounter Visit Diagnoses Not on filedocumented in this encounter Care Teams Motor Assembler Relationship Specialty Start Date End Date Juana Levy MD [address] [place] [address] PCP - General Internal Medicine 01/04/21 08/02/22 Heaven Sherman MD [address] [place] [address] PCP - General Internal Medicine 08/03/22 07/06/24 Nicole Conroy [address] [place] [address] [address] [place] [address] PCP - General Internal Medicine 07/07/24 Nawaf Austin MD [address] [place] [address] [place] [address] Screen Printer Helper Cardiovascular Disease 02/06/23 Vanesa Juárez NP [address] [place] [address] [address] [place] [address] Nurse Practitioner Cardiology 07/07/24 documented as of this encounter
--- OUTSIDE RECORDS SUMMARY | 2024-12-13 01:27 | XMS_ITS | Encounter Summary ---
Author Organization [facility] Address [address] [place] [address] Care Team Providers Care Control System Manager Name Role Phone Nawaf Austin MD Unavailable Vanesa Juárez NP Unavailable [phone] Nicole Conroy Primary Care Provider Unavaila ble Encounter Details Date Type Department Care Team Description 07/12/2024 Dining Services Director Report Medical Records [address] [place] [address] Quyen Barger NP Social History Tobacco Use Types Packs/Day Years [...] on filedocumented in this encounter Care Teams Control System Manager Relationship Specialty Start Date End Date Nicole Conroy [address] [place] [address] [address] [place] [address] PCP - General Internal Medicine 07/07/24 Nawaf Austin MD [address] [place] [address] [address] [place], [place] [id number] Performance Analyst Cardiovascular Disease 02/06/23 Vanesa Juárez, [address] [place] [address] Nurse Practitioner Cardiology 07/07/24 documented as of this encounter
--- OUTSIDE RECORDS SUMMARY | 2024-12-13 01:27 | XMS_ITS | Encounter Summary ---
Author Organization [facility] Address [address] [place] [address] Care Team Providers Care Adhesive Bandage Making Operator Name Role Phone Heaven Sherman MD Primary Care Provider Unavaila Juana Markham MD Primary Care Provider [phone] Heaven Sherman MD Primary Care Provider Unavaila Nawaf Rodriguez MD Unavailable [phone] Vanesa Juárez NP Unavailable [phone] Nicole Conroy Primary Care Provider Unavaila lucina Encounter Details Date Type Department Care Team Description 07/19/2020 Aluminum Can Collector Report Medical Records [address] [place] [address] Ade Massey MD Social History Tobacco Use Types Packs/Day [...] have Coronavirus / COVID-19? No / Unsure 07/13/2020 1:29 PM EDT documented as of this encounter Plan of Treatment Not on file documented as of this encounter Visit Diagnoses Not on filedocumented in this encounter Care Teams Adhesive Bandage Making Operator Relationship Specialty Start Date End Date Heaven Sherman MD PCP - General Internal Medicine 08/13/18 01/03/21 Juana Levy MD [address] [place] [address] PCP - General Internal Medicine 01/04/21 08/02/22 Heaven Sherman MD [address] [place] [address] PCP - General Internal Medicine 08/03/22 07/06/24 Nicole Conroy [address] [place] [address] [address] [place] [address] PCP - General Internal Medicine 07/07/24 Nawaf Austin MD [address] [place] [address] [address] [place] [address] Treasury Management Sales Consultant Cardiovascular Disease 02/06/23 Vanesa Juárez NP [address] [place] [address] [address] [place] [address] Nurse Practitioner Cardiology 07/07/24 documented as of this encounter
--- OUTSIDE RECORDS SUMMARY | 2024-12-13 01:27 | XMS_ITS | Encounter Summary ---
Author Organization [facility] Address [address] [place] [address] Care Team Providers Care Rv Mechanic Name Role Phone Nawaf Austin MD Unavailable [phone] Vanesa Juárez NP Unavailable [phone] Nicole Conroy Primary Care Provider Unavaila ble Encounter Details Date Type Department Care Team Description 07/25/2024 Hospital Cardio [facility] [address] [place] [address] [place] [phone] [facility] Social History Tobacco Use Types Packs/Day Years [...] on filedocumented in this encounter Care Teams Rv Mechanic Relationship Specialty Start Date End Date Nicole Conroy [address] [place] [address] [place] [address] PCP - General Internal Medicine 07/07/24 Nawaf Austni MD [address] [place] [address] [address] [place], [place] [phone] Burial Vault Maker Cardiovascular Disease 02/06/23 Vanesa Juárez, GISSELLE [address] [place] [address] DRIVE [address] [place] [address] Nurse Practitioner Cardiology 07/07/24 documented as of this encounter
--- OUTSIDE RECORDS SUMMARY | 2024-12-13 01:27 | XMS_ITS | Encounter Summary ---
Author Organization [facility] Address [address] [place] [address] Care Team Providers Care Gasser Machine Operator Name Role Phone Hood Ernst MD Primary Care Provider Unavail able Heaven Sherman MD Primary Care Provider Unavaila Gladis Teague Primary Care Provider Heaven Morales MD Primary Care Provider Unavaila ble Juana Levy MD Primary Care Provider [phone] Heaven Sherman MD Primary Care Provider Unavaila Nawaf Rodriguez MD Unavailable [phone] Vanesa Juárez NP Unavailable [phone] Nicole Conroy Primary Care Provider Unavaila ble Encounter Details Date Type Department Care Team Description 12/17/2013 Business Doc Medical Records [address] [place] [address] Abstract, Provider Social History Tobacco Use Types [...] on filedocumented in this encounter Care Teams Gasser Machine Operator Relationship Specialty Start Date End Date Hood Ernst MD PCP - General 01/02/00 08/15/15 Heaven Sherman MD PCP - General Internal Medicine 08/16/15 12/11/16 [facility], Pcp PCP - General Internal Medicine 12/12/16 08/12/18 Heaven Sherman MD PCP - General Internal Medicine 08/13/18 01/03/21 Juana Levy MD [address] [place] [address] PCP - General Internal Medicine 01/04/21 08/02/22 Heaven Sherman MD [address] [place] [address] PCP - General Internal Medicine 08/03/22 07/06/24 Nicole Conroy [address] [place] [address] [address] [place] [address] PCP - General Internal Medicine 07/07/24 Nawaf Austin MD [address] [place] [address] [address] [place] [address] Resin Remover Cardiovascular Disease 02/06/23 Vanesa Juárez NP [address] [place] [address] [address] [place] [address] Nurse Practitioner Cardiology 07/07/24 documented as of this encounter
--- OUTSIDE RECORDS SUMMARY | 2024-12-13 01:27 | XMS_ITS | Continuity of Care Document ---
Author Organization [facility] ter Address [address] [place] [id number]- Care Team Providers Care Minister Name Role Phone Marycarmen MACDONALD, Nicole Austin Primary Care Physician Encounter 11/28/24 - 11/29/[address] [address] Attending Physician: Not on Staff, Attending MD Referring Physician: Not on Staff, Referring MD Encounter Type: SMRI Allergies, Adverse Reactions, Alerts Substance Criticality Severity Reaction Reaction Severity Status Contrast Dye 1 IVP dye cause s hives Active morphine extended release 2 swelling Active 1pt is allergic to IVP dye...unknown reaction. 2Received hydromorphone in the past Immunizations Given and Recorded Vaccine Date Status Refusal Reason influenza virus vaccine, inactivated 09/01/24 Cole rded influenza virus vaccine, inactivated 06/13/23 Cole rded influenza virus vaccine, inactivated 06/28/22 Cole rded influenza virus vaccine, inactivated 07/10/21 Cole rded influenza virus vaccine, inactivated 06/24/20 Cole rded influenza virus vaccine, inactivated 1 08/17/17 Gi mohit influenza virus vaccine, inactivated 08/02/16 Cole rded influenza virus vaccine, inactivated 08/03/15 Cole rded influenza virus vaccine, inactivated 09/17/13 Cole rded influenza virus vaccine, inactivated 09/17/12 Cole rded influenza virus vaccine, inactivated 08/19/10 Cole rded influenza virus vaccine, inactivated 07/22/09 Cole rded influenza virus vaccine, inactivated 2 08/26/08 Gi mohit SARS-CoV-2(COVID-19)mRNA-LNP vac([id number]) 09/01/24 Recorded RSV vaccine preF3, recombinant 09/03/23 Recorded [id number] bivalent booster vax 08/10/22 Recorded pneumococcal 20-valent conjugate vaccine 06/28/22 Recorded SARS-CoV-2 (COVID-19) mRNA-1273 vaccine 10/19/21 R ecorded SARS-CoV-2 (COVID-19) mRNA BNT-162b2 vac 03/01/21 Recorded SARS-CoV-2 (COVID-19) mRNA BNT-162b2 vac 02/08/21 Recorded tetanus/diphtheria/pertussis, acel(Tdap) 08/22/17 Given tetanus/diphtheria/pertussis, acel(Tdap) 02/05/13 Recorded pneumococcal 23-valent vaccine 06/29/14 Recorded pneumococcal 23-valent vaccine 01/06/09 Recorded tetanus-diphtheria toxoids (Td) 01/31/06 Recorded 1Result Comment: [id number] 2Admin Note: VIS GIVEN Medications acetaminophen 650 mg oral tablet, extended release 1 tablet, By Mouth, Every 8 hours, VIAL., # 100 tablet, 1 Refills, Maintenance, 10/30/24 2:28:00 PM EST, [facility], 177, cm, 10/23/24 14:57:00 EST, Height, 136, kg, 10/22/24 7:30:00 EST, Dry Weight Start Date: 10/30/24 Status: Ordered Quantity: 100.0 Unit: tablet Repeat number: 1 aspirin 81 mg oral delayed release tablet 81 mg, 1, tablet, By Mouth, Daily, with food/ milk, # 90 tablet, Refills 3, Tot. Refills 3, Maintenance, 09/14/24 1:33:00 PM EST, Route to Pharmacy Electronically, [facility], Partial fill upon patient request if the prescription is for a schedule II opioid drug., 175, cm, 09/03/24 11:52:00 EST, Height, 136.5, kg, 08/15/24 18:32:00 EDT, Dry Weight Start Date: 09/14/24 Status: Ordered Quantity: 90.0 Unit: tablet Repeat number: 4 atorvastatin 80 mg oral tablet 1 tablet = 80 mg, By Mouth, Daily at bedtime, # 90 tablet, 3 Refills, Maintenance, 09/14/24 1:32:00 PM EST, Tablet, [facility], Partial fill upon patient request if the prescription is for a schedule II opioid drug., 175, cm, 09/03/24 11:52:00 EST, Height, 136.5, kg, 08/15/24 18:32:00 EDT, Dry Weight Start Date: 09/14/24 Status: Ordered Quantity: 90.0 Unit: tablet Repeat number: 4 BACLOFEN 10MG TABLETS BACLOFEN 10MG TABLETS, TAKE 1 TABLET BY MOUTH TWICE DAILY NEEDED Start Date: 09/14/24 Status: Ordered Repeat number: 1 cetirizine 10 mg oral tablet 1 tablet, By Mouth, Daily, # 90 tablet, 2 Refills, Maintenance, 10/09/24 11:35:00 AM EST, [facility], 175, cm, 10/01/24 10:49:00 EST, Height, 136.5, kg, 09/27/24 17:03:00 EST, Dry Weight Start Date: 10/09/24 Status: Ordered Quantity: 90.0 Unit: tablet Repeat number: 3 finasteride 5 mg oral tablet 1 tablet = 5 mg, By Mouth, Daily, # 30 tablet, 0 Refills, Maintenance, 05/16/24 9:33:00 PM EDT, Tablet, Partial fill upon patient request if the prescription is for a schedule II opioid drug. Start Date: 05/16/24 Status: Ordered Quantity: 30.0 Unit: tablet Repeat number: 1 ibuprofen 800 mg oral tablet 1, tablet, By Mouth, 3 times a day, PRN, WITH FOOD OR MILK (VIAL., # 40 tablet, Refills 0, Maintenance, NEEDED, 10/30/24 2:28:00 PM EST, Route to Pharmacy Electronically, [facility], 177, cm, 10/23/24 14:57:00 EST, Height, 136, kg, 10/22/24 7:30:00 EST, Dry Weight Start Date: 10/30/24 Status: Ordered Quantity: 40.0 Unit: tablet Repeat number: 1 ketoconazole 2% topical cream See Instructions, 1 application Topically Daily 14 days at bedtime to affected area, # 60 Gm, 0 Refills, Maintenance, 11/25/24 12:00:00 PM EST, Cream, [facility], Partial fill upon patient request if the prescription is for a schedule II opioid drug., 1 application Topically Daily 14 days atbedtime; to affected area, 177, cm, 11/25/24 11:23:00 EST, Height, 136, kg, 10/22/24 7:30:00 EST, Dry Weight Start Date: 11/25/24 Status: Ordered Quantity: 60.0 Unit: g Repeat number: 1 Indication: Rash and other nonspecific skin eruption LOSARTAN POT TAB 50MG LOSARTAN POT TAB 50MG, 0 Refills, Maintenance, 09/14/24 2:00:00 PM EST Start Date: 09/14/24 Status: Ordered Repeat number: 1 omeprazole 40 mg oral enteric coated capsule 1 capsule = 40 mg, By Mouth, 2 times a day, 30 min before a meal, # 180 capsule, 3 Refills, Maintenance, 09/14/24 1:32:00 PM EST, [facility], Partial fill upon patient request if the prescription is for a schedule II opioid drug., 175, cm, 09/03/24 11:52:00 EST, Height, 136.5, kg, 08/15/24 18:32:00 EDT, Dry Weight Start Date: 09/14/24 Status: Ordered Quantity: 180.0 Unit: capsule Repeat number: 4 OXcarbazepine 300 mg oral tablet 300 mg, 1, tablet, By Mouth, 3 times a day, # 120 tablet, Refills 0, Maintenance, 08/18/22 11:13:00 AM EDT, Partial fill upon patient request if the prescription is for a schedule II opioid drug. Start Date: 08/18/22 Status: Ordered Quantity: 120.0 Unit: tablet Repeat number: 1 oxyCODONE 10 mg oral tablet 1 tablet = 10 mg, By Mouth, Every 6 hours, PRN Pain , Severe, NEEDED FOR PAIN, # 20 tablet, 0 Refills, Maintenance, 09/05/24 5:50:00 PM EST, Tablet, [id number], Partial fill upon patient request if the prescription is for a schedule II opioid drug., 175, cm, 09/03/24 11:52:00 EST, Height, 136.5, kg, 08/15/24 18:32:00 EDT, Dry Weight Start Date: 09/05/24 Status: Ordered Quantity: 20.0 Unit: tablet Repeat number: 1 Indication: Low back pain, unspecified tamsulosin 0.4 mg oral capsule 0.4 mg, 1, capsule, By Mouth, Daily at bedtime, Refills 0, Maintenance, 05/16/24 9:34:00 PM EDT, Partial fill upon patient request if the prescription is for a schedule II opioid drug. Start Date: 05/16/24 Status: Ordered Repeat number: 1 ziprasidone 40 mg oral capsule 1.5 capsule = 60 mg, By Mouth, Every 12 hours, # 180 capsule, 0 Refills, Maintenance, 08/05/24 1:04:00 PM EDT, Capsule, Partial fill upon patient request if the prescription is for a schedule II opioid drug. Start Date: 08/05/24 Status: Ordered Quantity: 180.0 Unit: capsule Repeat number: 1 Problem List Condition Confirmation Course Effective Dates Status H ealth Status Informant Abdominal pain Confirmed Active Encounter for completion of form with patient Confirmed Active BPH (benign prostatic hyperplasia) Confirmed Active BPH with urinary obstruction Confirmed Active Chronic bipolar disorder Confirmed Active Cervical spondylosis without myelopathy Confirmed Active Headache Confirmed Active Chronic low back pain Confirmed Active COPD (chronic obstructive pulmonary disease) Confirmed Active Dizziness Confirmed Active Dysphagia Confirmed Active Transaminitis Confirmed Active Epigastric pain Confirmed Active Fall Confirmed Active GERD (gastroesophageal reflux disease) Confirmed Active Acid reflux Confirmed Active History of bariatric surgical procedure Confirmed 03/08/22 Active History of CVA with residual deficit Confirmed Active History of UTI Confirmed Active Hyperlipidemia Confirmed Active HTN (hypertension) Confirmed Active Hyponatremia Confirmed Active Insomnia Confirmed Active Right nephrolithiasis Confirmed Active Weakness of left side of body Confirmed Active Low back pain Confirmed Active Migraine headache Confirmed Active Morbid obesity Confirmed Active Stroke-like symptom Confirmed Active Neuropathy, follows with neurologist, vitamin B12 def Confirmed Active Nodule of right lung Confirmed Active Obstructive sleep apnea, adult Confirmed Active Orthostatic hypotension Confirmed Active Orthostatic hypotension Confirmed Active Postural hypotension Confirmed Active Osteoarthritis Confirmed Active Coccyx pain Confirmed Active Healthcare maintenance Confirmed Active Frequent falls Confirmed Active Seizures Confirmed Active Severe obesity Confirmed Active Left shoulder pain Confirmed Active Thoracic spondylosis Confirmed Active TIA (transient ischemic attack) Confirmed Active Screening-pulmonary TB Confirmed Active Vitamin D deficiency Confirmed Active Results Radiology Reports * Exam Date Time Procedure Performing Provider Status 11/28/24 5:04 PM MRI Joint Ext Upper W/O Contrast Left Auth (Verified) Notes: (MRI Joint Ext Upper W/O Contrast Left) Reason For Exam: Reason For Exam: Other specific joint derangements of left shoulder, not elsewhere classified, , L [place] MRI. ? RCT, Rul;Reason For Exam: Other specific joint derangements of left shoulder, not elsewhere classified, , L [place] MRI. ? RCT, Rul RESULT: MRI Joint Ext Upper W/O Contrast Left [facility] VISIT NUMBER :[id number] Patient Name: Shannon Reed Date of : 1960 Date of Exam: 11-28-2024 Referring Physician: Hood Young [facility] [address] [facility], [address] [place] [address] Exam: MR Shoulder (C-) CPT 82757 - Left Room Description: [facility] 3T MR Shoulder (C-) CPT 24028 CLINICAL INDICATION: Left shoulder pain History of arthroscopic surgery in 2019 reported in the technologist note. TECHNIQUE: MRI of the left shoulder was performed without intravenous contrast. COMPARISON: 10/19/2022 FINDINGS: AC joint: Patient is status post acromioplasty and partial resection of the distal clavicle. Rotator cuff: Thin slitlike tear of the supraspinatus footprint with accompanying tendinosis. Intermediate signal subscapularis tendinosis. No evidence of full-thickness rotator cuff tear, tendon retraction, or muscle atrophy. Glenoid labrum and biceps tendon: On nonarthrographic evaluation there is no evidence of displaced labral tear or para labral cyst. Biceps tendon is intact and the extra-articular segment is visualized within the bicipital groove. Articular cartilage: Mild diffuse thinning of the glenohumeral articular cartilage without focal defect. Bone: No evidence of fracture, malalignment or bone marrow contusion. IMPRESSION: Interval subacromial decompression Thin slitlike interstitial tear of the supraspinatus footprint which is expected to be concealed arthroscopically Supraspinatus and subscapularis tendinosis Electronically Signed By: Angelo Vivas MD Dictated By: Not on Staff , FREEDOM MACDONALD Dictated Date/Time: 11/29/24 6:55 pm Reviewed By: Not on Staff , FREEDOM MACDONALD Signed By: Not on Staff , FREEDOM MACDONALD Signed Date/Time: 11/29/24 6:55 pm Transcribed By: TS Transcribed Date/Time: 11/29/24 6:55 pm Social History Social History Type Response Tobacco Use: pt denies. Sex Male Sex Representation Male (finding) Patient Care team information Care Team Personnel Name: Nicole Conroy MD Position: [facility] Physician - Primary Care Member Role: PCP Address: [address] [place] [address], [address] [place], [place] [address] Telecom: Name: Ranjit Paz RN Position: [facility] RN Member Role: Primary Care Nurse Name: Stormy Pressley RN Position: [facility] RN Member Role: Primary Care Nurse Name: Lizeth Mcleod RN Position: [facility] RN Member Role: Primary Care Nurse Name: Saturnino Clark RN Position: [facility] RN Member Role: Primary Care Nurse Name: Melissa Manzo RN Position: [facility] RN Supv Member Role: Primary Care Nurse Name: Shannon Childs RN Position: [facility] RN Supv Member Role: Primary Care Nurse Name: Apple Jennings Position: [facility] RN Supv Member Role: Primary Care Nurse Name: Brandy Graves RN Position: [facility] Hospital Veneer Splicer Member Role: Primary Care Nurse Name: Yunier Whyte RN Position: [facility] AMB Nurse Member Role: Primary Care Nurse Name: Letty East RN Position: [facility] RN Member Role: Primary Care Nurse Name: Kay Hernandez RN Position: [facility] RN Member Role: Primary Care Nurse Name: Michelle Young RN Position: [facility] RN Member Role: Primary Care Nurse Name: Heaven Cerda RN Position: [facility] RN Member Role: Primary Care Nurse Name: Leatha Doyle RN Position: [facility] RN Member Role: Primary Care Nurse Name: Alyssa Hernandez RN Position: S RN Member Role: Primary Care Nurse Name: Lali Astorga RN Position: [facility] RN Member Role: Primary Care Nurse Care Team Related Persons Name: ELLE BARRETO Name: SHANE DE LA CRUZ Name: SAHNNON DE LA CRUZ SR Name: VANESSA REED Name: JEAN REED Insurance Providers Guarantor name: SHANNON REED Health Plan Information #: 1 Payer: [facility] Member Number: NA Policy Number: NA Group Number: NA
--- OUTSIDE RECORDS SUMMARY | 2024-12-13 01:27 | XMS_ITS | Encounter Summary ---
Author Organization [facility] Address [address] [place] [address] Care Team Providers Care Application Project Leader Name Role Phone Hood Ernst MD Primary Care Provider Unavail able Heaven Sherman MD Primary Care Provider Unavaila lucina Cabrera, Pcp Primary Care Provider UnavailHeaven Morales MD Primary Care Provider Unavaila ble Juana Levy MD Primary Care Provider [phone] Heaven Sherman MD Primary Care Provider Unavaila Nawaf Rodriguez MD Unavailable [phone] Vanesa Juárez NP Unavailable [phone] Nicole Conroy Primary Care Provider Unavaila lucina Encounter Details Date Type Department Care Team Description 01/20/2011 Hospital Medical Records [address] [place] [address] Rao Newberry MD Social History Tobacco Use Types Packs/Day [...] on filedocumented in this encounter Care Teams Application Project Leader Relationship Specialty Start Date End Date Hood Ernst MD PCP - General 01/02/00 08/15/15 Heaven Sherman MD PCP - General Internal Medicine 08/16/15 12/11/16 [facility], Pcp PCP - General Internal Medicine 12/12/16 08/12/18 Heaven Sherman MD PCP - General Internal Medicine 08/13/18 01/03/21 Juana Levy MD [address] [place] [address] PCP - General Internal Medicine 01/04/21 08/02/22 Heaven Sherman MD [address] [place] [address] PCP - General Internal Medicine 08/03/22 07/06/24 Nicole Conroy [address] [place] [address] [address] [place] [address] PCP - General Internal Medicine 07/07/24 Nawaf Austin MD [address] [place] [address] [address] [place] [address] Heading Machine Operator Cardiovascular Disease 02/06/23 Vanesa Juárez NP [address] [place] [address] [address] [place] [address] Nurse Practitioner Cardiology 07/07/24 documented as of this encounter
--- OUTSIDE RECORDS SUMMARY | 2024-12-13 01:27 | XMS_ITS | Encounter Summary ---
Author Organization [facility] Address [address] [place] [address] Care Team Providers Care Bedspread Inspector Name Role Phone Heaven Sherman MD Primary Care Provider Gladis Brooks Primary Care Provider Heaven Morales MD Primary Care Provider Unavaila Juana Markham MD Primary Care Provider [phone] Heaven Sherman MD Primary Care Provider Unavaila Nawaf Rodriguez MD Unavailable [phone] Vanesa Juárez NP Unavailable [phone] Nicole Conroy Primary Care Provider Unavaila lucina Encounter Details Date Type Department Care Team Description 04/07/2016 Hospital Medical Records [address] [place] [address] Marcial Ramos NP Social History Tobacco Use Types Packs/Day [...] on filedocumented in this encounter Care Teams Bedspread Inspector Relationship Specialty Start Date End Date Heaven Sherman MD PCP - General Internal Medicine 11/2/15 2/27/17 [facility], Pcp PCP - General Internal Medicine 12/12/16 08/12/18 Heaven Sherman MD PCP - General Internal Medicine 08/13/18 01/03/21 Juana Levy MD [address] [place] [address] PCP - General Internal Medicine 01/04/21 08/02/22 Heaven Sherman MD [address] [place] [address] PCP - General Internal Medicine 08/03/22 07/06/24 Nicole Conroy [address] [place] [address] [address] [place] [address] PCP - General Internal Medicine 07/07/24 Nawaf Austin MD [address] [place] [address] [address] [place] [address] Foundry Superintendant Cardiovascular Disease 02/06/23 Vanesa Juárez NP [address] [place] [address] [address] [place] [address] Nurse Practitioner Cardiology 07/07/24 documented as of this encounter
--- OUTSIDE RECORDS SUMMARY | 2024-12-13 01:27 | XMS_ITS | Encounter Summary ---
Author Organization [facility] Address [address] [place] [address] Care Team Providers Care Granite Polisher Apprentice Name Role Phone Juana Levy MD Primary Care Provider [phone] Heaven Sherman MD Primary Care Provider Unavaila ble Nawaf Austin MD Unavailable [phone] Vanesa Juárez NP Unavailable [phone] Nicole Conroy Primary Care Provider Unavaila ble Reason for Visit * Reason Comments E-prescribe Rx Request Encounter Details Date Type Department Care Team Description 05/15/2021 Refill Adult Medicine [address] [address] Rosio Her PA-C [address] [place] [address] E-prescribe Rx Request Social History Tobacco Use Types Packs/Day Years [...] AM EDT documented as of this encounter Miscellaneous Notes * Telephone Encounter - Carolina Quintana M.A. - 05/18/2021 7:47 AM EDT Last office visit 01/24/21 Next office visit 05/26/21 * Telephone Encounter - Swetha Moreno - 05/16/2021 10:49 AM EDT Patient would like script to be: E-PRESCRIBED/FAXED TO PHARMACY WHEN WAS THE PATIENT'S LAST APPOINTMENT IN ADULT MEDICINE? 01/24/21 WHEN WAS THE LAST TIME THE PATIENT SAW THEIR PCP? Same as above Does patient have an upcoming appointment? Yes 05/26/21 (THE MEDICATION REQUESTED IS ON THE MED LIST ABOVE) All of the medications requested were on the CURRENT MEDS list Did you check the Pharmacy information above?: YES Patient wants: 90 -day supply Is this a mail order prescription request ? NO If the refill is from a FAXED refill request what is the RX # listed on the fax? N/A Patients current insurance carrier is: Payor: WORKERS COMP / Plan: WORKERS COMPENSATION/[place] / Product Type: OTHER documented in this encounter Plan of Treatment Not on file documented as of this encounter Visit Diagnoses Diagnosis Epigastric pain Abdominal pain, epigastric documented in this encounter Care Teams Granite Polisher Apprentice Relationship Specialty Start Date End Date Juana Levy MD [address] [place] [address] PCP - General Internal Medicine 01/04/21 08/02/22 Heaven Sherman MD [address] [place] [address] PCP - General Internal Medicine 08/03/22 07/06/24 Nicole Conroy [address] [place] [address] [address] [place] [address] PCP - General Internal Medicine 07/07/24 Nawaf Austin MD [address] [place] [address] [address] [place] [address] Director Operations Cardiovascular Disease 02/06/23 Vanesa Juárez NP [address] [place] [address] [address] [place], [place] [id number] Nurse Practitioner Cardiology 07/07/24 documented as of this encounter
--- OUTSIDE RECORDS SUMMARY | 2024-12-13 01:27 | XMS_ITS | Encounter Summary ---
Author Organization [facility] Address [address] [place] [address] Care Team Providers Care Fish Stringer Assembler Name Role Phone Heaven Sherman MD Primary Care Provider Emily Cabrera Pcp Primary Care Provider Heaven Morales MD Primary Care Provider Unavaila Juana Markham MD Primary Care Provider [phone] Heaven Sherman MD Primary Care Provider Unavaila Nawaf Rodriguez MD Unavailable [phone] Vanesa Juárez NP Unavailable [phone] Nicole Conroy Primary Care Provider Unavaila lucina Encounter Details Date Type Department Care Team Description 07/29/2016 Hospital Medical Records [address] [place] [address] Social History Tobacco Use Types Packs/Day Years [...] on filedocumented in this encounter Care Teams Fish Stringer Assembler Relationship Specialty Start Date End Date Heaven Sherman MD PCP - General Internal Medicine 08/16/15 12/11/16 [facility], Pcp PCP - General Internal Medicine 12/12/16 08/12/18 Heaven Sherman MD PCP - General Internal Medicine 08/13/18 01/03/21 Juana Levy MD [address] [place] [address] PCP - General Internal Medicine 01/04/21 08/02/22 Heaven Sherman MD [address] [place] [address] PCP - General Internal Medicine 08/03/22 07/06/24 Nicole Conroy [address] [place] [address] [address] [place] [address] PCP - General Internal Medicine 07/07/24 Nawaf Austin MD [address] [place] [address] [address] [place] [address] Hat Conditioner Cardiovascular Disease 02/06/23 Vanesa Juárez NP [address] [place] [address] [address] [place] [address] Nurse Practitioner Cardiology 07/07/24 documented as of this encounter
--- OUTSIDE RECORDS SUMMARY | 2024-12-13 01:27 | XMS_ITS | Encounter Summary ---
Author Organization [facility] Address [address] [place] [address] Care Team Providers Care Center Director Lead Teacher Name Role Phone Heaven Sherman MD Primary Care Provider Emily Cabrera, Pcp Primary Care Provider Heaven Morales MD Primary Care Provider Unavaila Juana Markham MD Primary Care Provider [phone] Heaven Sherman MD Primary Care Provider Unavaila Nawaf Rodriguez MD Unavailable [phone] Vanesa Juárez NP Unavailable [phone] Nicole Conroy Primary Care Provider Unavaila lucina Encounter Details Date Type Department Care Team Description 09/28/2016 Home Health Certification Medical Records [address] [place] [address] Vna Social History Tobacco Use Types Packs/Day [...] on filedocumented in this encounter Care Teams Center Director Lead Teacher Relationship Specialty Start Date End Date Heaven Sherman MD PCP - General Internal Medicine 08/16/15 12/11/16 [facility], Pcp PCP - General Internal Medicine 12/12/16 08/12/18 Heaven Sherman MD PCP - General Internal Medicine 08/13/18 01/03/21 Juana Levy MD [address] [place] [address] PCP - General Internal Medicine 01/04/21 08/02/22 Heaven Sherman MD [address] [place] [address] PCP - General Internal Medicine 08/03/22 07/06/24 Nicole Conroy [address] [place] [address] [address] [place] [address] PCP - General Internal Medicine 07/07/24 Nawaf Austin MD [address] [place] [address] [address] [place] [address] Wool Fleece Sorter Cardiovascular Disease 02/06/23 Vanesa Juárez NP [address] [place] [address] [address] [place] [address] Nurse Practitioner Cardiology 07/07/24 documented as of this encounter
--- OUTSIDE RECORDS SUMMARY | 2024-12-13 01:27 | XMS_ITS | Encounter Summary ---
Author Organization [facility] Address [address] [place] [address] Care Team Providers Care Ship Surveyor Name Role Phone Hood Ernst MD Primary Care Provider Unavail able Heaven Sherman MD Primary Care Provider Unavaila lucina [facility], Pcp Primary Care Provider UnavailHeaven Morales MD Primary Care Provider Unavaila ble Juana Levy MD Primary Care Provider Heaven Sherman MD Primary Care Provider Unavaila ble Nawaf Austin MD Unavailable [phone] Vanesa Juárez NP Unavailable [phone] Nicole Conroy Primary Care Provider Unavaila ble Encounter Details Date Type Department Care Team Description 10/03/2013 COLLEGE ATHLETIC DIRECTOR/MassPat Report Medical Records [address] [place] [address] Abstract, Provider Social History Tobacco Use Types [...] on filedocumented in this encounter Care Teams Ship Surveyor Relationship Specialty Start Date End Date Hood Ernst MD PCP - General 01/02/00 08/15/15 Heaven Sherman MD PCP - General Internal Medicine 08/16/15 12/11/16 [facility], Pcp PCP - General Internal Medicine 12/12/16 08/12/18 Heaven Sherman MD PCP - General Internal Medicine 08/13/18 01/03/21 Juana Levy MD [address] [place] [address] PCP - General Internal Medicine 01/04/21 08/02/22 Heaven Sherman MD [address] [place] [address] PCP - General Internal Medicine 08/03/22 07/06/24 Nicole Conroy [address] [place] [address] [address] [place] [address] PCP - General Internal Medicine 07/07/24 Nawaf Austin MD [address] [place] [address] [address] [place] [address] Surveyor Hydrographic Cardiovascular Disease 02/06/23 Vanesa Juárez NP [address] [place] [address] [address] [place] [address] Nurse Practitioner Cardiology 07/07/24 documented as of this encounter
--- OUTSIDE RECORDS SUMMARY | 2024-12-13 01:27 | XMS_ITS | Encounter Summary ---
Author Organization [facility] Address [address] [place] [address] Care Team Providers Care Email Operations Manager Name Role Phone Heaven Sherman MD Primary Care Provider Nawaf Arrieta MD Unavailable [phone] Vanesa Juárez NP Unavailable [phone] Nicole Conroy Primary Care Provider Emily verdugo Encounter Details Date Type Department Care Team Description 04/28/2024 Hospital Medical Records [address] [place] [id number] [place] [address] Social History Tobacco Use Types Packs/Day Years [...] Date/Time Associated Diagnosis Comments OUTSIDE EKG Routine 04/29/2024 OUTSIDE MRI/MRA Routine 04/29/[address] Routine 04/29/[address] Routine 04/28/2024 documented in this encounter Results * OUTSIDE MRI/MRA (04/29/2024) Provider Default RADIOLOGY * OUTSIDE CT (04/29/2024) Provider Default RADIOLOGY * OUTSIDE EKG (04/29/2024) Provider Default CARDIOLOGY * OUTSIDE CT (04/28/2024) Provider Default RADIOLOGY documented in this encounter Visit Diagnoses Not on filedocumented in this encounter Care Teams Email Operations Manager Relationship Specialty Start Date End Date Heaven Sherman MD PCP - General Internal Medicine 08/03/22 07/06/24 Nicole Conroy [address] [place] [address] [address] [place] [address] PCP - General Internal Medicine 07/07/24 Nawaf Austin MD [address] [place] [address] [address] [place] [address] Clinical Sociologist Cardiovascular Disease 02/06/23 Vanesa Juárez NP [address] [place] [address] [address] [place] [address] Nurse Practitioner Cardiology 07/07/24 documented as of this encounter
--- OUTSIDE RECORDS SUMMARY | 2024-12-13 01:27 | XMS_ITS | Encounter Summary ---
Author Organization [facility] Address [address] [place] [address] Care Team Providers Care Muck Miner Name Role Phone Heaven Sherman MD Primary Care Provider UnavailJuana Hawthorne MD Primary Care Provider [phone] Heaven Sherman MD Primary Care Provider Unavaila Nawaf Rodriguez MD Unavailable [phone] Vanesa Juárez NP Unavailable [phone] Nicole Conroy Primary Care Provider Unavaila lucina Encounter Details Date Type Department Care Team Description 12/16/2020 Barrel Endshaker Adjuster Report Medical Records [address] [place] [address] Elgin Rojas Social History Tobacco Use Types Packs/Day Years [...] on filedocumented in this encounter Care Teams Muck Miner Relationship Specialty Start Date End Date Heaven Sherman MD PCP - General Internal Medicine 08/13/18 01/03/21 Juana Levy MD [address] [place] [address] PCP - General Internal Medicine 01/04/21 08/02/22 Heaven Sherman MD [address] [place] [address] PCP - General Internal Medicine 08/03/22 07/06/24 Nicole Conroy [address] [place] [address] [address] [place] [address] PCP - General Internal Medicine 07/07/24 Nawaf Austin MD [address] [place] [address] [address] [place] [address] Yarn Polishing Machine Operator Cardiovascular Disease 02/06/23 Vanesa Juárez NP [address] [place] [address] [address] [place] [address] Nurse Practitioner Cardiology 07/07/24 documented as of this encounter
--- OUTSIDE RECORDS SUMMARY | 2024-12-13 01:27 | XMS_ITS | Encounter Summary ---
Author Organization [facility] Address [address] [place] [address] Care Team Providers Care Electric Appliance Installer Name Role Phone Nawaf Austin MD Unavailable [phone] Vanesa Juárez NP Unavailable [phone] Nicole Conroy Primary Care Provider Unavaila ble Reason for Visit * Reason Onset Date Comments Nuclear Stress Testing 07/14/2024 Test does not have a covered diagnosis. Encounter Details Date Type Department Care Team Description 07/14/2024 Telephone Cardio [facility] Diag Testing [address] [facility] [address] [place], [place] [id number] Vanesa Juárez NP [address] [place] [address] [place] [address] Nuclear Stress Testing (Test does not have a covered diagnosis.) Social History Tobacco Use Types Packs/Day Years [...] encounter Miscellaneous Notes * Telephone Encounter - Vanesa Juárez NP - 07/18/2024 3:31 PM EDT Diagnosis updated. * Telephone Encounter - Jessie Lewis - 07/14/2024 9:26 AM EDT I am reaching out because you have placed an order for this patient to have a Nuclear Stress Test and the appointment is scheduled for 07/18/24. The order has an associated diagnosis of Primary hypertension[I10], Pure hypercholesterolemia[E78.00], Orthostasis[I95.1], Dizziness[R42]. This diagnosis is not considered to support medical necessity for the test ordered according to insurance guidelines. Please review to see if there is another diagnosis, including signs/symptoms, that is appropriate to be associated with this test and update the current order, or place a new order. If there is not a covered diagnosis associated with this test within 24hrs of the scheduled appointment, the patient will be notified they will need to sign a waiver accepting responsibility for payment if their insurance denies it. This may result in a cancellation of the test. Thank you, [facility] Scheduling documented in this encounter Plan of Treatment Not on file documented as of this encounter Visit Diagnoses Not on filedocumented in this encounter Care Teams Electric Appliance Installer Relationship Specialty Start Date End Date Nicole Conroy [address] [place] [address] [place] [address] PCP - General Internal Medicine 07/07/24 Nawaf Austin MD [address] [place] [address] [place] [address] Rn Clinical Quality Cardiovascular Disease 02/06/23 Vanesa Juárez NP [address] [place] [address] [place] [address] Nurse Practitioner Cardiology 07/07/24 documented as of this encounter
--- OUTSIDE RECORDS SUMMARY | 2024-12-13 01:27 | XMS_ITS | Encounter Summary ---
Author Organization [facility] Address [address] [place] [address] Care Team Providers Care Agency Service Representative Name Role Phone Juana Levy MD Primary Care Provider [phone] Heaven Sherman MD Primary Care Provider Unavaila Nawaf Rodriguez MD Unavailable [phone] Vanesa Juárez NP Unavailable [phone] Nicole Conroy Primary Care Provider Unavaila lucina Encounter Details Date Type Department Care Team Description 04/08/2021 Vp Legal Affairs Report Medical Records [address] [place] [address] Federico Blankenship MD Social History Tobacco Use [...] have Coronavirus / COVID-19? No / Unsure 04/05/2021 12:40 PM EDT documented as of this encounter Plan of Treatment Not on file documented as of this encounter Visit Diagnoses Not on filedocumented in this encounter Care Teams Agency Service Representative Relationship Specialty Start Date End Date Juana Levy MD [address] [place] [address] PCP - General Internal Medicine 01/04/21 08/02/22 Heaven Sherman MD [address] [place] [address] PCP - General Internal Medicine 08/03/22 07/06/24 Nicole Conroy [address] [place] [address] [place] [address] PCP - General Internal Medicine 07/07/24 Nawaf Austin MD [address] [place] [address] [place] [address] Coating Line Worker Cardiovascular Disease 02/06/23 Vanesa Juárez NP [address] [place] [address] [place] [address] Nurse Practitioner Cardiology 07/07/24 documented as of this encounter
--- OUTSIDE RECORDS SUMMARY | 2024-12-13 01:27 | XMS_ITS | Encounter Summary ---
Author Organization [facility] Address [address] [place] [address] Care Team Providers Care Marketing Secretary Name Role Phone Hood Ernst MD Primary Care Provider Unavail able Heaven Sherman MD Primary Care Provider Unavaila Gladis Teague Primary Care Provider Heaven Morales MD Primary Care Provider Unavaila ble Juana Levy MD Primary Care Provider [phone] Heaven Sherman MD Primary Care Provider Unavaila Nawaf Rodriguez MD Unavailable [phone] Vanesa Juárez NP Unavailable [phone] Nicole Conroy Primary Care Provider Unavaila ble Encounter Details Date Type Department Care Team Description 02/06/2013 Business Doc Medical Records [address] [place] [address] Abstract, Provider Social History Tobacco Use Types [...] on filedocumented in this encounter Care Teams Marketing Secretary Relationship Specialty Start Date End Date Hood Ernst MD PCP - General 01/02/00 08/15/15 Heaven Sherman MD PCP - General Internal Medicine 08/16/15 12/11/16 [facility], Pcp PCP - General Internal Medicine 12/12/16 08/12/18 Heaven Sherman MD PCP - General Internal Medicine 08/13/18 01/03/21 Juana Levy MD [address] [place] [address] PCP - General Internal Medicine 01/04/21 08/02/22 Heaven Sherman MD [address] [place] [address] PCP - General Internal Medicine 08/03/22 07/06/24 Nicole Conroy [address] [place] [address] [address] [place] [address] PCP - General Internal Medicine 07/07/24 Nawaf Austin MD [address] [place] [address] [address] [place] [address] Asbestos Shingle Inspector Cardiovascular Disease 02/06/23 Vanesa Juárez NP [address] [place] [address] [address] [place] [address] Nurse Practitioner Cardiology 07/07/24 documented as of this encounter
--- OUTSIDE RECORDS SUMMARY | 2024-12-13 01:27 | XMS_ITS | Encounter Summary ---
Author Organization [facility] Address [address] [place] [address] Care Team Providers Care Drug Abuse Social Worker Name Role Phone Hood Ernst MD Primary Care Provider Unavail able Heaven Sherman MD Primary Care Provider Unavaila lucina [facility], Pcp Primary Care Provider UnavailHeaven Morales MD Primary Care Provider Unavaila ble Juana Levy MD Primary Care Provider [phone] Heaven Sherman MD Primary Care Provider Unavaila Nawaf Rodriguez MD Unavailable [phone] Vanesa Juárez NP Unavailable [phone] Nicole Conroy Primary Care Provider Unavaila lucina Encounter Details Date Type Department Care Team Description 12/29/2008 [facility] Medical Records [address] [place] [address] Dorothy Collado MD Social History Tobacco Use Types Packs/Day [...] on filedocumented in this encounter Care Teams Drug Abuse Social Worker Relationship Specialty Start Date End Date Hood Ernst MD PCP - General 01/02/00 08/15/15 Heaven Sherman MD PCP - General Internal Medicine 08/16/15 12/11/16 [facility], Pcp PCP - General Internal Medicine 12/12/16 08/12/18 Heaven Sherman MD PCP - General Internal Medicine 08/13/18 01/03/21 Juana Levy MD [address] [place] [address] PCP - General Internal Medicine 01/04/21 08/02/22 Heaven Sherman MD [address] [place] [address] PCP - General Internal Medicine 08/03/22 07/06/24 Nicole Conroy [address] [place] [address] [address] [place] [address] PCP - General Internal Medicine 07/07/24 Nawaf Austin MD [address] [place] [address] [address] [place] [address] Board Stacker Cardiovascular Disease 02/06/23 Vanesa Juárez NP [address] [place] [address] [address] [place] [address] Nurse Practitioner Cardiology 07/07/24 documented as of this encounter
--- OUTSIDE RECORDS SUMMARY | 2024-12-13 01:27 | XMS_ITS | Encounter Summary ---
Author Organization [facility] Address [address] [place] [address] Care Team Providers Care Building Supervisor Name Role Phone Nawaf Austin MD Unavailable Vanesa Juárez NP Unavailable [phone] Nicole Conroy Primary Care Provider Unavaila ble Encounter Details Date Type Department Care Team Description 07/29/2024 Hospital Medical Records [address] [place] [address] [facility] Social History Tobacco Use Types Packs/Day Years [...] Date/Time Associated Diagnosis Comments OUTSIDE EKG Routine 07/29/[address] Routine 07/29/2024 OUTSIDE LAB Routine 07/29/2024 documented in this encounter Results * OUTSIDE CT (07/29/2024) Provider Default RADIOLOGY * OUTSIDE LAB (07/29/2024) Provider Default LAB * OUTSIDE EKG (07/29/2024) Provider Default CARDIOLOGY documented in this encounter Visit Diagnoses Not on filedocumented in this encounter Care Teams Building Supervisor Relationship Specialty Start Date End Date Nicole Conroy [address] [place] [address] [address] [place] [address] PCP - General Internal Medicine 07/07/24 Nawaf Austin MD [address] [place] [address] [address] [place] [address] Swimmer Cardiovascular Disease 02/06/23 Vanesa Juárez NP [address] [place] [address] [address] [place] [address] Nurse Practitioner Cardiology 07/07/24 documented as of this encounter
--- OUTSIDE RECORDS SUMMARY | 2024-12-13 01:27 | XMS_ITS | Encounter Summary ---
Author Organization [facility] Address [address] [place] [address] Care Team Providers Care Mrb Engineer Name Role Phone Heaven Sherman MD Primary Care Provider Unavaila lucina Cabrera Pcp Primary Care Provider UnavailHeaven Morales MD Primary Care Provider Unavaila Juana Markham MD Primary Care Provider [phone] Heaven Sherman MD Primary Care Provider Unavaila ble Nawaf Austin MD Unavailable [phone] Vanesa Juárez NP Unavailable [phone] Nicole Conroy Primary Care Provider Unavaila ble Encounter Details Date Type Department Care Team Description 08/31/2016 Telephone Medicine/Pediatrics - [address] [address] Heaven Sherman MD Social History Tobacco Use Types Packs/Day Years Used Date Smoking Tobacco: Former Cigarettes 1 30 Q uit: 01/16/2011 Smokeless Tobacco: Former Comments:started smoking at 15 Alcohol Use Standard Drinks/Week Comments No 0 (1 standard drink = 0.6 oz pur e alcohol) Sex Assigned at Date Recorded Not on file documented as of this encounter Miscellaneous Notes * Telephone Encounter - Rl Cid M.A. - 08/31/2016 3:32 PM EST Please review, sign and date. Thank you. [facility] health cert & supplemental orders documented in this encounter Plan of Treatment Not on file documented as of this encounter Visit Diagnoses Not on filedocumented in this encounter Care Teams Mrb Engineer Relationship Specialty Start Date End Date Heaven Sherman MD PCP - General Internal Medicine 08/16/15 12/11/16 [facility] PCP - General Internal Medicine 12/12/16 08/12/18 Heaven Sherman MD PCP - General Internal Medicine 08/13/18 01/03/21 Juana Levy MD [address] [place] [address] PCP - General Internal Medicine 01/04/21 08/02/22 Heaven Sherman MD [address] [place] [address] PCP - General Internal Medicine 08/03/22 07/06/24 Nicole Conroy [address] [place] [address] [address] [place] [address] PCP - General Internal Medicine 07/07/24 Nawaf Austin MD [address] [place] [address] [address] [place] [address] Prosthetic Assistant Cardiovascular Disease 02/06/23 Vanesa Juárez NP [address] [place] [address] [address] [place] [address] Nurse Practitioner Cardiology 07/07/24 documented as of this encounter
--- OUTSIDE RECORDS SUMMARY | 2024-12-13 01:27 | XMS_ITS | Encounter Summary ---
Author Organization [facility] Address [address] [place] [address] Care Team Providers Care Install And Repair Technician Name Role Phone Heaven Sherman MD Primary Care Provider Nawaf Arrieta MD Unavailable [phone] Vanesa Juárez NP Unavailable [phone] Nicole Conroy Primary Care Provider Emily verdugo Encounter Details Date Type Department Care Team Description 05/16/2024 [facility] Medical Records [address] [place] [address] Social History Tobacco Use Types Packs/Day Years [...] Associated Diagnosis Comments OUTSIDE PLAIN FILM Routine 05/18/2024 OUTSIDE EKG Routine 05/16/2024 documented in this encounter Results * OUTSIDE PLAIN FILM (05/18/2024) Provider Abstract RADIOLOGY * OUTSIDE EKG (05/16/2024) Provider Abstract CARDIOLOGY documented in this encounter Visit Diagnoses Not on filedocumented in this encounter Care Teams Install And Repair Technician Relationship Specialty Start Date End Date Heaven Sherman MD PCP - General Internal Medicine 08/03/22 07/06/24 Nicole Conroy [address] [place] [address] [address] [place] [address] PCP - General Internal Medicine 07/07/24 Nawaf Austin MD [address] [place] [address] [address] [place] [address] Latexer Cardiovascular Disease 02/06/23 Vanesa Juárez NP [address] [place] [address] [address] [place] [address] Nurse Practitioner Cardiology 07/07/24 documented as of this encounter
--- OUTSIDE RECORDS SUMMARY | 2024-12-13 01:27 | XMS_ITS | Encounter Summary ---
Author Organization [facility] Address [address] [place] [address] Care Team Providers Care Manager Quantitative Name Role Phone Heaven Sherman MD Primary Care Provider Unavaila ble Nawaf Austin MD Unavailable [phone] Vanesa Juárez NP Unavailable [phone] Nicole Conroy Primary Care Provider Unavaila ble Reason for Visit * Reason Onset Date Comments other 05/19/2024 Admitted at [facility] e Encounter Details Date Type Department Care Team Description 05/19/2024 Telephone Cardio [facility] [address] [place] [address] Drive [address] [place] [address] Nawaf Austin MD [address] [place] [address] [address] [place] [address] other (Admitted at [facility] ) Social History Tobacco Use Types Packs/Day Years Used Date Smoking Tobacco: Former Cigarettes 1 30 Q uit: 01/16/2011 Smokeless Tobacco: Never Comments:started smoking at 15 Alcohol Use Standard Drinks/Week Comments Not Asked 0 (1 standard drink = 0.6 oz pur e alcohol) occ Sex Assigned at Date Recorded Not on file documented as of this encounter Miscellaneous Notes * Telephone Encounter - Kira Castillo C.M.A. - 05/27/2024 8:52 AM EDT FYI---I spoke to Roberto Carlos and he had an unfortunate accident, as soon as he arrived home yesterday hefelt dizzy and had aparently passed out as he hit his head on the pavement and is now a inpatient at [facility] in the Observation unit I advised him to call us when he is discharged so that we may instruct him accordingly, I did not advise on the florinef as he is in the hospital * Telephone Encounter - Vanesa Juárez NP - 05/27/2024 8:47 AM EDT He can increase florinef to 2 tablets BID. Vanesa Abbasi * Telephone Encounter - Kira Castillo C.M.A. - 05/26/2024 4:52 PM EDT [facility] Emergency Medicine Note scanned in * Telephone Encounter - Vaishali Martinez - 05/26/2024 4:32 PM EDT Roberto Carlos called, He stated he is [facility] . He is waiting for someone to pick him up. He stated it was the same diagnosis as last time , orthostatic Hypertension . Armando * Telephone Encounter - Kira Castillo C.M.A. - 05/21/2024 2:17 PM EDT I called Roberto Carlos and advised to follow discharge instructions and I well send a msg for a hospital follow up appt --he is grateful for the call * Telephone Encounter - Vaishali Martinez - 05/21/2024 1:57 PM EDT Roberto Carlos called stating that , he is home now from the hospital . Does the doctor want to change any medication . He stated he also has a UTI Karenm * Telephone Encounter - Adriana Lawrence R.N. - 05/19/2024 9:16 AM EDT Noted, he should be scheduled for HFU once discharge. Thank you. * Telephone Encounter - Simin Chris - 05/19/2024 9:12 AM EDT Patient called to inform that he is admitted at [facility] for Orthostatic Hypotension. He willcall us back again once discharged. (FYI Only) documented in this encounter Plan of Treatment Not on file documented as of this encounter Visit Diagnoses Not on filedocumented in this encounter Care Teams Manager Quantitative Relationship Specialty Start Date End Date Heaven hSerman MD PCP - General Internal Medicine 08/03/22 07/06/24 Nicole Conroy [address] [place] [address] [place] [address] PCP - General Internal Medicine 07/07/24 Nawaf Austin MD [address] [place] [address] [place] [address] Lsat Instructor Cardiovascular Disease 02/06/23 Vanesa Juárez NP [address] [place] [address] [place] [address] Nurse Practitioner Cardiology 07/07/24 documented as of this encounter
--- OUTSIDE RECORDS SUMMARY | 2024-12-13 01:27 | XMS_ITS | Encounter Summary ---
Author Organization [facility] Address [address] [place] [address] Care Team Providers Care Nursery Worker Name Role Phone Heaven Sherman MD Primary [facility] Care Provider Heaven Morales MD Primary Care Provider Unavaila Juana Markham MD Primary Care Provider [phone] Heaven Sherman MD Primary Care Provider Unavaila ble Nawaf Austin MD Unavailable [phone] Vanesa Juárez NP Unavailable [phone] Nicole Conroy Primary Care Provider Unavaila lucina Encounter Details Date Type Department Care Team Description 07/28/2016 Release of Information Medical Records [address] [place] [address] Abstract, Provider Social History Tobacco Use Types [...] on filedocumented in this encounter Care Teams Nursery Worker Relationship Specialty Start Date End Date Heaven Sherman MD PCP - General Internal Medicine 08/16/15 12/11/16 [facility], Pcp PCP - General Internal Medicine 12/12/16 08/12/18 Heaven Sherman MD PCP - General Internal Medicine 08/13/18 01/03/21 Juana Levy MD [address] [place] [address] PCP - General Internal Medicine 01/04/21 08/02/22 Heaven Sherman MD [address] [place] [address] PCP - General Internal Medicine 08/03/22 07/06/24 Nicole Conroy [address] [place] [address] [address]IVE [address] [place] [address] PCP - General Internal Medicine 07/07/24 Nawaf Austin MD [address] [place] [address] [address] [place] [address] Bankruptcy Legal Assistant Cardiovascular Disease 02/06/23 Vanesa Juárez NP [address] [place] [address] [address] [place] [address] Nurse Practitioner Cardiology 07/07/24 documented as of this encounter
--- OUTSIDE RECORDS SUMMARY | 2024-12-13 01:27 | XMS_ITS | Encounter Summary ---
Author Organization [facility] Address [address] [place] [address] Care Team Providers Care Production Associate Name Role Phone Hood Ernst MD Primary Care Provider Unavail able Heaven Sherman MD Primary Care Provider Unavaila lucina Cabrera, Pcp Primary Care Provider UnavailHeaven Morales MD Primary Care Provider Unavaila ble Juana Levy MD Primary Care Provider [phone] Heaven Sherman MD Primary Care Provider Unavaila ble Nawaf Austin MD Unavailable [phone] Vanesa Juárez NP Unavailable [phone] Nicole Conroy Primary Care Provider Unavaila ble Encounter Details Date Type Department Care Team Description 11/11/2012 Visualization Developer Report Medical Records [address] [place] [address] Rafa Toscano MD Social History Tobacco Use Types Packs/Day [...] on filedocumented in this encounter Care Teams Production Associate Relationship Specialty Start Date End Date Hood Ernst MD PCP - General 01/02/00 08/15/15 Heaven Sherman MD PCP - General Internal Medicine 08/16/15 12/11/16 [facility], Pcp PCP - General Internal Medicine 12/12/16 08/12/18 Heaven Sherman MD PCP - General Internal Medicine 08/13/18 01/03/21 Juana Levy MD [address] [place] [address] PCP - General Internal Medicine 01/04/21 08/02/22 Heaven Sherman MD [address] [place] [address] PCP - General Internal Medicine 08/03/22 07/06/24 Nicole Conroy [address] [place] [address] [address] [place] [address] PCP - General Internal Medicine 07/07/24 Nawaf Austin MD [address] [place] [address] [address] [place] [address] Chief Client Officer Cardiovascular Disease 02/06/23 Vanesa Juárez NP [address] [place] [address] [address]IVE [address] [place] [address] Nurse Practitioner Cardiology 07/07/24 documented as of this encounter
--- OUTSIDE RECORDS SUMMARY | 2024-12-13 01:27 | XMS_ITS | Encounter Summary ---
Author Organization [facility] Address [address] [place] [address] Care Team Providers Care Nuclear Equipment Test Engineer Name Role Phone Heaven Sherman MD Primary Care Provider Emily Cabrera Pcp Primary Care Provider Heaven Moraels MD Primary Care Provider Unavaila Juana Markham MD Primary Care Provider [phone] Heaven Sherman MD Primary Care Provider Unavaila Nawaf Rodriguez MD Unavailable [phone] Vanesa Juárez NP Unavailable [phone] Nicole Conroy Primary Care Provider Unavaila lucina Encounter Details Date Type Department Care Team Description 07/27/2016 Hospital Medical Records [address] [place] [address] Social History Tobacco Use Types Packs/Day Years [...] on filedocumented in this encounter Care Teams Nuclear Equipment Test Engineer Relationship Specialty Start Date End Date Heaven Sherman MD PCP - General Internal Medicine 08/16/15 12/11/16 [facility], Pcp PCP - General Internal Medicine 12/12/16 08/12/18 Heaven Sherman MD PCP - General Internal Medicine 08/13/18 01/03/21 Juana Levy MD [address] [place] [address] PCP - General Internal Medicine 01/04/21 08/02/22 Heaven Sherman MD [address] [place] [address] PCP - General Internal Medicine 08/03/22 07/06/24 Nicole Conroy [address] [place] [address] [address] [place] [address] PCP - General Internal Medicine 07/07/24 Nawaf Austin MD [address] [place] [address] [address] [place] [address] Hydraulic Punch Press Operator Cardiovascular Disease 02/06/23 Vanesa Juárez NP [address] [place] [address] [address] [place] [address] Nurse Practitioner Cardiology 07/07/24 documented as of this encounter
--- OUTSIDE RECORDS SUMMARY | 2024-12-13 01:27 | XMS_ITS | Encounter Summary ---
Author Organization [facility] Address [address] [place] [address] Care Team Providers Care Healthcare Project Manager Name Role Phone Nawaf Austin MD Unavailable [phone] Vanesa Juárez NP Unavailable [phone] Nicole Conroy Primary Care Provider Unavaila ble Encounter Details Date Type Department Care Team Description 08/04/2024 Hospital Medical Records [address] [place] [address] [facility] Social History Tobacco Use Types [...] Date/Time Associated Diagnosis Comments OUTSIDE CT Routine 08/06/2024 OUTSIDE LAB Routine 08/06/2024 OUTSIDE VASCULAR STUDY Routine 08/05/[address] Routine 08/05/2024 OUTSIDE EKG Routine 08/04/[address] Routine 08/04/2024 OUTSIDE PLAIN FILM Routine 08/04/2024 documented in this encounter Results * OUTSIDE CT (08/06/2024) Provider Default RADIOLOGY * OUTSIDE LAB (08/06/2024) Provider Default LAB * OUTSIDE CT (08/05/2024) Provider Default RADIOLOGY * OUTSIDE VASCULAR STUDY (08/05/2024) Provider Default CARDIOLOGY * OUTSIDE CT (08/04/2024) Provider Default RADIOLOGY * OUTSIDE PLAIN FILM (08/04/2024) Provider Default RADIOLOGY * OUTSIDE EKG (08/04/2024) Provider Default CARDIOLOGY documented in this encounter Visit Diagnoses Not on filedocumented in this encounter Care Teams Healthcare Project Manager Relationship Specialty Start Date End Date Nicole Conroy [address] [place] [address] [address] [place] [address] PCP - General Internal Medicine 07/07/24 Nawaf Austin MD [address] [place] [address] [address] [place] [address] Prepress Proofer Cardiovascular Disease 02/06/23 Vanesa Juárez NP [address] [place] [address] [address] [place] [address] Nurse Practitioner Cardiology 07/07/24 documented as of this encounter
--- OUTSIDE RECORDS SUMMARY | 2024-12-13 01:27 | XMS_ITS | Encounter Summary ---
Author Organization [facility] Address [address] [place] [address] Care Team Providers Care Hat Mender Name Role Phone Hood Ernst MD Primary Care Provider Unavail able Heaven Sherman MD Primary Care Provider Unavaila lucina [facility], Pcp Primary Care Provider UnavailHeaven Morales MD Primary Care Provider Unavaila ble Juana Levy MD Primary Care Provider [phone] Heaven Sherman MD Primary Care Provider Unavaila ble Nawaf Austin MD Unavailable [phone] Vanesa Juárez NP Unavailable [phone] Nicole Conroy Primary Care Provider Unavaila ble Reason for Visit * Reason Onset Date Comments Medication 03/06/2013 Encounter Details Date Type Department Care Team Description 03/06/2013 Telephone Medicine/Pediatrics - [address] [phone] Hood Ernst MD Medication Social History Tobacco Use Types Packs/Day Years [...] Telephone Encounter - Hood Ernst MD - 03/06/2013 4:06 PM EDT Information noted. I spoke with Racheal Porras earlier about the patient. He is not due for his Vicodin refill yet but can: He is due. * Telephone Encounter - Latonya Veras Rn - 03/06/2013 1:34 PM EDT fyi to Dr Ernst,/Racheal Valentine * Telephone Encounter - Loli Hall - 03/06/2013 11:27 AM EDT Pt states that he has been taking more of the pain medication than prescribed because the medication did not seem to be working on controlling the pain. Pt states he has an apt with Dr. Spears (orthopedic surgeon) next Sunday but he is calling them to see if he can be seen sooner to get more medication. Pt wanted to be sure Dr. Adonis Ernst aware bc pt is on a contract. PLease advise documented in this encounter Plan of Treatment Not on file documented as of this encounter Visit Diagnoses Not on filedocumented in this encounter Care Teams Hat Mender Relationship Specialty Start Date End Date Hood Ernst MD PCP - General 01/02/00 08/15/15 Heaven Sherman MD PCP - General Internal Medicine 08/16/15 12/11/16 [facility], Pcp PCP - General Internal Medicine 12/12/16 08/12/18 Heaven Sherman MD PCP - General Internal Medicine 08/13/18 01/03/21 Juana Levy MD [address] [place] [address] PCP - General Internal Medicine 01/04/21 08/02/22 Heaven Sherman MD [address] [place] [address] PCP - General Internal Medicine 08/03/22 07/06/24 Nicole Conroy [address] [place] [address] PCP - General Internal Medicine 07/07/24 Nawaf Austin MD [address] [place] [address] [address] [place], [place] [id number] Pitch Filler Cardiovascular Disease 02/06/23 Vanesa Juárez NP [address] [place] [address] [address] [place], [place] [id number] Nurse Practitioner Cardiology 07/07/24 documented as of this encounter
--- OUTSIDE RECORDS SUMMARY | 2024-12-13 01:27 | XMS_ITS | Encounter Summary ---
Author Organization [facility] Address [address] [place] [address] Care Team Providers Care Burrer Marker Axle Name Role Phone Heaven Sherman MD Primary Care Provider Nawaf Arrieta MD Unavailable [phone] Vanesa Juárez NP Unavailable Nicole Conroy Primary Care Provider Emily verdugo Encounter Details Date Type Department Care Team Description 05/07/2024 [facility] Medical Records [address] [place] [address] Social History Tobacco Use Types Packs/Day Years [...] Date/Time Associated Diagnosis Comments OUTSIDE EKG Routine 05/07/2024 documented in this encounter Results * OUTSIDE EKG (05/07/2024) Provider Abstract CARDIOLOGY documented in this encounter Visit Diagnoses Not on filedocumented in this encounter Care Teams Burrer Marker Axle Relationship Specialty Start Date End Date Heaven Sherman MD PCP - General Internal Medicine 08/03/22 07/06/24 Nicole Conroy [address] [place] [address] [address] [place] [address] PCP - General Internal Medicine 07/07/24 Nawaf Austin MD [address] [place] [address] [address] [place] [address] Production Posting Clerk Cardiovascular Disease 02/06/23 Vanesa Juárez NP [address] [place] [address] [address] [place], [place] [id number] Nurse Practitioner Cardiology 07/07/24 documented as of this encounter
--- OUTSIDE RECORDS SUMMARY | 2024-12-13 01:27 | XMS_ITS | Encounter Summary ---
Author Organization [facility] Address [address] [place] [address] Care Team Providers Care Electric Wirer Name Role Phone Nawaf Austin MD Unavailable [phone] Vanesa Juárez NP Unavailable [phone] Nicole Conroy Primary Care Provider Unavaila ble Encounter Details Date Type Department Care Team Description 07/09/2024 Hospital Medical Records [address] [place], [place] [address] [place] [address] Social History Tobacco Use Types Packs/Day Years [...] Date/Time Associated Diagnosis Comments OUTSIDE EKG Routine 07/09/2024 OUTSIDE PLAIN FILM Routine 07/09/2024 OUTSIDE LAB Routine 07/09/2024 documented in this encounter Results * OUTSIDE PLAIN FILM (07/09/2024) Provider Default RADIOLOGY * OUTSIDE LAB (07/09/2024) Provider Default LAB * OUTSIDE EKG (07/09/2024) Provider Default CARDIOLOGY documented in this encounter Visit Diagnoses Not on filedocumented in this encounter Care Teams Electric Wirer Relationship Specialty Start Date End Date Nicole Conroy [address] [place] [address] [address] [place] [address] PCP - General Internal Medicine 07/07/24 Nawaf Austin MD [address] [place] [address] [address] [place] [address] Public Health Dentist Cardiovascular Disease 02/06/23 Vanesa Juárez NP [address] [place] [address] [address] [place] [address] Nurse Practitioner Cardiology 07/07/24 documented as of this encounter
--- OUTSIDE RECORDS SUMMARY | 2024-12-13 01:27 | XMS_ITS | Encounter Summary ---
Author Organization [facility] Address [address] [place] [address] Care Team Providers Care Pulp Drier Name Role Phone Heaven Sherman MD Primary Care Provider Nawaf Arrieta MD Unavailable [phone] Vanesa Juárez NP Unavailable [phone] Nicole Conroy Primary Care Provider Emily verdugo Encounter Details Date Type Department Care Team Description 05/01/2024 Hospital Medical Records [address] [place] [id number] [place] [address] Social History Tobacco Use Types Packs/Day Years [...] Date/Time Associated Diagnosis Comments OUTSIDE EKG Routine 05/01/[address] Routine 05/01/2024 OUTSIDE PLAIN FILM Routine 05/01/2024 documented in this encounter Results * OUTSIDE CT (05/01/2024) Provider Default RADIOLOGY * OUTSIDE PLAIN FILM (05/01/2024) Provider Default RADIOLOGY * OUTSIDE EKG (05/01/2024) Provider Default CARDIOLOGY documented in this encounter Visit Diagnoses Not on filedocumented in this encounter Care Teams Pulp Drier Relationship Specialty Start Date End Date Heaven Sherman MD PCP - General Internal Medicine 08/03/22 07/06/24 Nicole Conroy [address] [place] [address] [address] [place] [address] PCP - General Internal Medicine 07/07/24 Nawaf Austin MD [address] [place] [address] [address] [place] [address] Stonecutter Apprentice Hand Cardiovascular Disease 02/06/23 Vanesa Juárez NP [address] [place] [address] [address] [place] [address] Nurse Practitioner Cardiology 07/07/24 documented as of this encounter
--- OUTSIDE RECORDS SUMMARY | 2024-12-13 01:27 | XMS_ITS | Encounter Summary ---
Author Organization [facility] Address [address] [place] [address] Care Team Providers Care Compensation Associate Name Role Phone Heaven Sherman MD Primary Care Provider Gladis Brooks Primary Care Provider Heaven Morales MD Primary Care Provider Unavaila Juana Markham MD Primary Care Provider [phone] Heaven Sherman MD Primary Care Provider Unavaila Nawaf Rodriguez MD Unavailable [phone] Vanesa Juárez NP Unavailable [phone] Nicole Conroy Primary Care Provider Unavaila lucina Encounter Details Date Type Department Care Team Description 06/08/2016 Hospital Medical Records [address] [place] [address] Vicky Garvey MD Social History Tobacco Use Types Packs/Day [...] on filedocumented in this encounter Care Teams Compensation Associate Relationship Specialty Start Date End Date Heaven Sherman MD PCP - General Internal Medicine 08/16/15 12/11/16 [facility], Pcp PCP - General Internal Medicine 12/12/16 08/12/18 Heaven Sherman MD PCP - General Internal Medicine 08/13/18 01/03/21 Juana Levy MD [address] [place] [address] PCP - General Internal Medicine 01/04/21 08/02/22 Heaven Sherman MD [address] [place] [address] PCP - General Internal Medicine 08/03/22 07/06/24 Nicole Conroy [address] [place] [address] [address] [place] [address] PCP - General Internal Medicine 07/07/24 Nawaf Austin MD [address] [place] [address] [address] [place] [address] Signals Intelligence Analysis Manager Cardiovascular Disease 02/06/23 Vanesa Juárez NP [address] [place] [address] [address] [place] [address] Nurse Practitioner Cardiology 07/07/24 documented as of this encounter
--- OUTSIDE RECORDS SUMMARY | 2024-12-13 01:27 | XMS_ITS | Data Portability ---
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 Evaluation in the field was performed by my theatre instructor colleague, as noted above, I provided real-time direction and supervision for this visit. The evaluation revealed 64y M with HTN and acutely elevated BP. seen for same 4 days ago, referred to ER iso r/o HTN urgency, sent home with dx of polypharmacy w side effects. Today, BP is 180/90 here, was 180/100 on home machine earlier, no MARLOW, vision changes, shob, chest pain. he is sitting comfortably. Exam in resp and cardio WNL per medic. he has PCP f/u tomorrow. Impression: elevated blood pressure Plan: fu w pcp. precautoins. Primary care, consider keep outpatint visit tomorrow. titrate BP meds and schedule close f/u Disposition: We discussed the diagnostic uncertainty of home visits and the risk associated with this. In this case, the patient and I felt this to be an acceptable and reasonable amount of risk given the benefit of avoiding an ED visit. We discussed the need to seek care urgently/emergentl y in the setting of any new or worsening serious symptoms, particularly rising BP, chest pain, headaches, vision changes, shob, weakness, confusion, falls atilhou Not available 08/18/2024 20:34:23 08/25/2024 08/25/2024 As noted, jeane hardy called to see this patient regarding concerns of non-specific neuropsychiatric symptoms ( fuzziness ) which was transient and likely related to anxiety. Pt with concerns about BP and other issues. Evaluation in the field was performed by my theatre instructor colleague, as noted above, I provided real-time direction and supervision for this visit. The evaluation revealed reassuring VS and a clinical picture c/w worsening of anxiety. No reason to suspect any acute neurological process. Impression: Anxiety with bodily sx, overall reassuring. Plan: Reassurance Patient education Primary care, consider follow-up visit this week for review of anxiety/BH issues. [email or web address] Not available 08/25/2024 21:46:41 09/24/2024 09/24/2024 I provided real -time medical direction via phone for this encounter and was available for additional phone-based assistance as needed. I have reviewed and agree with the Assessment and Plan as documented by the Power Transformer Repair Supervisor. Patient given the opportunity to ask questions. Our service contacted for an assessment of: Headache and back pain As per above, patient calls this service for complaints of headache and back pain. States he has had the headache for about 24 hours. Adherent to all medications. Per theatre instructor on the scene, systolic blood pressures in the 220 range diastolics all over 100. No excessive tachycardia. Impression: Hypertensive urgency Plan: Expect call made to [facility] [email or web address] Not available 09/24/2024 18:25:29 Plan of Treatment Reminders Order Date Submit Date Provider Last Modified By Organization Details Last Modified Time Details Appointments None recorded. Lab None recorded. Referral None recorded. Procedures None recorded. Surgeries None recorded. Imaging None recorded. Medication Orders ketorolac 15 mg/mL injection solution 2024 025 [facility], [address] [place] [address], [address], 20:55:23 Patient TargetsNo targets recorded. Patient InstructionsNo instructions recorded. Reason for Referral None Reported. Results Created Date Observation Date Name Description Value Unit Range Abnormal Flag Note LastModifiedBy Organization Detail LastModifiedTime 07/20/2007/20/2024 maru castillo am No observ ation record ed. [address], [address], 07/20/2024 20:35:49 07/23/20 elect rocar diogr am No observ ation record ed. [email or web address] [facility] [address] [place] [address], [phone], 07/23/2024 13:19:10 07/25/20 24 07/25/2024 elect cortney diogr am No observ ation record ed. [email or web address] [address], [address], 07/25/2024 23:55:09 Result Notes None recorded. Procedures Surgical History None recorded. Imaging Results Imaging Date Name Status LastModified by Organization Details LastModified Time 07/20/2024 electrocardiogram completed [email or web address] [address], [address], 07/20/2024 20:35:49 07/23/2024 electrocardiogram completed [email or web address] [facility] - [address], [address], 07/23/2024 13:19:10 07/25/2024 electro[email or web address] [address] [place] [address], [phone], 07/25/2024 23:55:09 Procedure Notes None recorded. Medical Equipment None Reported. Allergies Allergen ID [...] Not available Not available Not available 05/28/2024 [id number] SNOMED Not Available [facility] - production 11:03:52 9983 iodine medicatio n Not available Not available Not available 08/15/2024 5933 RxNorm Not Available [facility] - production 10:47:06 Medications Name Sig Start Date Stop [...] Available No t Available Vitals Date Recorded Respiratory rate Oxygen saturation Oxygen saturation in Arterial blood by Pulse oximetry Body height Heart rate Body temperature Body weight Systolic blood pressure Diastolic blood pressure Provider Name and Address Organization Details Last Updated DateTime 4 16 /min 96 % 96 % 175.26 cm 85 /min 98.6 [degF] 613301. 6 g 182 mm[Hg] 90 mm[Hg] Not Available [email or web address] - production 4 20:25:23 Date Recorded Respiratory rate Heart rate Oxygen saturation Oxygen saturation in Arterial blood by Pulse oximetry Body temperature Systolic blood pressure Diastolic blood pressure Provider Name and Address Organization Details Last Updated DateTime 4 16 /min 90 /min 98 % 98 % 96.9 [degF] 140 mm[Hg] 70 mm[Hg] Not Available [facility] - production 4 17:56:45 Date Recorded Oxygen saturation Oxygen saturation in Arterial blood by Pulse oximetry Body temperature Heart rate Respiratory rate Systolic blood pressure Diastolic blood pressure Provider Name and Address Organization Details Last Updated DateTime 4 98 % 98 % 98.4 [degF] 83 /min 18 /min 218 mm[Hg] 70 mm[Hg] Not Available [facility] - production 4 18:23:01 Date Recorded Respiratory rate Heart rate Body weight Oxygen saturation Oxygen saturation in Arterial blood by Pulse oximetry Body temperature Systolic blood pressure Diastolic blood pressure Provider Name and Address Organization Details Last Updated DateTime 4 16 /min 78 /min 626213. 6 g 98 % 98 % 98.6 [degF] 156 mm[Hg] 76 mm[Hg] Not Available [facility] - production 4 12:58:13 Date Recorded Heart rate Body weight Respiratory rate Oxygen saturation Oxygen saturation in Arterial blood by Pulse oximetry Body height Systolic blood pressure Diastolic blood pressure Provider Name and Address Organization Details Last Updated DateTime 5 90 /min 606695. 64 g 16 /min 97 % 97 % 175.26 cm 150 mm[Hg] 77 mm[Hg] Not Available [facility] - production 5 20:52:46 Social History None recorded. Functional Status None recorded. Mental Status None recorded. Family History Nothing Reported. Medical History No medical history recorded. Past Encounters Encounter ID Performer Location Encounter Start Date Encounter Closed Date Diagnosis/Indication Diagnosis SNOMED-CT Code Diagnosis ICD10 Code Diagnosis Note [id number] Juan Villanueva MD [facility] [address] [place] [phone] 05/26/2024 12:36:56 05/26/2024 19:44:08 Lightheadedness [id number] R42 EKG wnl, pt requests transport to ED for further eval. [id number] MARZENA CALHOUN MD [facility] [address] [place] [phone] 05/28/2024 15:32:26 05/28/2024 23:58:51 Recurrent falls [id number] R29.6 Evaluation in the field was performed by my theatre instructor colleague, as noted above, I provided real-time direction and supervisio n for this visit. The evaluation revealed a 63-year-ol d male who lives alone, with a history of orthostati c hypotensio n and frequent falls. The patient reports that last night, he got up from his chair, suddenly felt dizzy, and fell, hitting his right knee. He denies head strike or loss of consciousn ess but reports worsening severe pain in his right knee, with radiation to his ankle, and is unable to bear weight today. This is the 4th fall in 4 days (he was seen by us on 05/26 and request to go to the ED for evaluation ). Denies CP, SOB, nausea, vomiting, headache .The patient reports feeling unsafe at home and is interested in exploring long-term care options. He called 911 yesterday, and the paramedics filed a report for self-negle ct. Vital signs are stable . On exam: AAO, speaking in full sentences , clear lungs, RRR, bruising on arms, legs, and torso, and pain to palpation on the right leg from ankle to hip, with the most severe pain at the right knee, as per discussion with the theatre instructor. Impression :Frequent fall/ right knee pain with inability to bear weight Plan:Since pt lives alone and was unable to bear weight, decision was sent to sent him to the ED for further eval, hopefully PT/OT eval and JIMMY placement Primary care, considerlo ng term placement vs prosthetic assistant living Dispositio n: The patient was transferre d to [facility] ED. Expect called. [id number] Artur Felton MD [facility] - [facility] [address] [place] [phone] 06/28/2024 11:30:50 06/28/2024 18:23:21 Pain of left shoulder joint [id number] M25.512 [id number] Cesar Astorga MD [facility] [address] [place] [phone] 06/29/2024 11:25:48 06/30/2024 20:32:37 Low back pain 788023052 M54.50 This 64-year-ol d male has had a flare up of his chronic back pain He received Toradol yesterday with some relief. I ordered Toradol 15 mg IM today. He will follow-up with his PCP. The patient agreed with this plan. [id number] MANUELA TAO MD [facility] [address] [place] [phone] 07/14/2024 21:09:41 07/18/2024 00:26:28 Orthostatic hypotension 22255456 I95.1 Hypokalemia 21507814 E87 .6 Recurrent falls 26137011 2 R29.6 Evaluation in the field was performed by my theatre instructor colleague, as noted above, I provided real-time direction and supervisio n for this visit. The evaluation revealed a 63-year-ol d male who lives alone, with a history of orthostati c hypotensio n and frequent falls. The patient reports that last night, he got up from his chair, suddenly felt dizzy, and fell, hitting his right knee. He denies head strike or loss of consciousn ess but reports worsening severe pain in his right knee, with radiation to his ankle, and is unable to bear weight today. This is the 4th fall in 4 days (he was seen by us on 05/26 and request to go to the ED for evaluation ). Denies CP, SOB, nausea, vomiting, headache .The patient reports feeling unsafe at home and is interested in exploring long-term care options. He called 911 yesterday, and the paramedics filed a report for self-negle ct. Vital signs are stable . On exam: AAO, speaking in full sentences , clear lungs, RRR, bruising on arms, legs, and torso, and pain to palpation on the right leg from ankle to hip, with the most severe pain at the right knee, as per discussion with the theatre instructor. Impression :Frequent fall/ right knee pain with inability to bear weight Plan:Since pt lives alone and was unable to bear weight, decision was sent to sent him to the ED for further eval, hopefully PT/OT eval and JIMMY placement Primary care, considerlo ng term placement vs prosthetic assistant living Dispositio n: The patient was transferre d to [facility] ED. Expect called. [id number] Cesar Astorga MD [facility] [address] [place] [phone] 0 07/18/2024 11:01:44 07/18/2024 22:25:13 Orthostatic hypotension 73801803 I95.1 This 64-year-ol d male called [facility] shoshana godinez of orthostati c light headedness . He was scheduled for a nuclear stress test today, but his ride didn't show up. He does have mild postural hypotensio n, but he is taking a long list of medication s as outlined above. I recommende d that he reschedule his nuclear stress test and follow-up with his regular physicians . If his condition worsens, he will go to the ER. The patient agreed with this plan. [id number] Triston Mcmanus MD [facility] [address] [place] [phone] 0 07/20/2024 12:28:32 07/21/2024 13:29:15 Orthostatic hypotension 20050408 I95.1 Acute on chronic; seen a few days prior. He was scheduled for a nuclear stress test today, but his ride didn't show up. He does have mild postural hypotensio n, but he is taking a long list of medication s as outlined above.Pefo rmed EKG to ensure now changes in intervenin g days. EKG with no ST-T wave problems, though does have slightly prolonged QRS. Has f/u with cardiology for upcoming stress test. Discussed red flag signs for which to seek higher level of care. [id number] Jesus Chamorro MD [facility] [address] [place] [phone] 0 07/23/2024 13:05:10 07/24/2024 14:58:00 Dizziness [id number] R42 [id number] Heaven Shields MD [facility] [address] [place] [address] [phone] 0 07/25/2024 13:24:23 07/26/2024 17:25:19 Hypertensive urgency 871670041 I16.0 Headache likely due to hypertensi on, but concern is new visual blurring, new tinnitus and worsening dizziness- discussed with patient the need for possible imaging and blood pressure control with closer monitoring in the ED and he declined requesting to be treated at home. No acute abnormalit ies on chemistry and EKG is normal sinus rhythm without acute ischemia compared to prior EKGs this month. Trial beta-block er beta-block er where he has tolerated propranolo l before-low -dose IV and p.o. ordered-ad vised patient if he worsened or did not respond to the treatment we had available it was imperative that he go to the ER AP just prior to medication administra tion was 192/100-wi thin less than 10 minutes patient complains of the worst headache of his life now 10/10+ with worsening tinnitus and dizziness and visual changes. BP 177/113-ad vised need to be evaluated in the emergency room for further testing and treatment and patient agreed/EMS contacted on EMS arrival BP was 178/103, patient still asymptomat ic with no slurred speech or visible focal weakness per medic. Patient transporte d via EMS to [facility]/ I called report to the ER [id number] Cuca Aldana MD [facility] [address] [place] [address] [phone] 0 07/27/2024 14:23:39 07/29/2024 11:41:05 Orthostatic hypotension 20350407 I95.1 [id number] Rosendo Waters MD [facility] [address] [place] [address] [phone] 07/28/2024 19:39:11 07/29/2024 21:36:24 Orthostatic hypotension 55413407 I95.1 As noted, we were called to see this patient regarding concerns of dizziness and orthostati c hypotensio n. BP quite high but drops with standing. This is longstandi ng and he is on fludrocort isone for it. Waiting on BP cuff for home use. Evaluation in the field was performed by my theatre instructor colleague, as noted above, I provided real-time direction and supervisio n for this visit. The evaluation revealed hypertensi on with a drop in BP with standing. EKG did not upload adequately but appears to show sinus with a rightward axis and an IVCD. 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 Ddx primarily autonomic neuropathy (idiopathi c vs toxic vs others) vs medication effect, among others. Given this is chronic and he has f/u we recommende d f/u with his PCP to advance workup. In the meantime given he has not had syncope from this yet, we discussed precaution li measures to reduce risk, including no longer taking stadning showers (can use shower seat) as well as using caution with transfers/ transition s and keeping well hydrated. Plan:Suppo rtive/expe ctant caref/u his PCP Primary care, consider continued workup of hypotensio n, perhaps including autonomic testing and Echo, if not already done Dispositio n: We discussed the diagnostic uncertaint [...] new or worsening serious symptoms, particular ly dyspnea, chest pain, syncope. [id number] Jesus Chamorro MD [facility] [address] [place] [address] [phone] 0 07/30/2024 15:04:25 07/30/2024 21:33:44 Hypertensive disorder 02659651 I10 [id number] Amy Kennedy MD [facility] [address] [place] [address] [phone] 0 08/04/2024 11:56:36 08/05/2024 10:28:11 Jaw pain 779780360 R68.84 Evaluation in the field was performed by my theatre instructor colleague, as noted above, I provided real-time direction and supervisio n for this visit. 64yo M with chronic dizziness and orthostati c hypotensio n who called today for unilateral jaw pain. Reports pain is worse with chewing and palpation of TMJ, no fevers, dizziness at baseline. On theatre instructor eval VS wnl, exam notable for focal TTP over TMJ joint no oral findings. Presentati on c/w new TMJ pain, reason unclear. Recommende d symmetric chewing, OTC pain control and dental assessment if not resolved. PCP: please follow up to ensure TMJ pain resolving w/ conservati ve measures We discussed the diagnostic uncertaint y of home visits and the risk associated with this. In this case, the patient and I felt this to be an acceptable and reasonable amount of risk given the benefit of avoiding an ED visit. We discussed the need to seek care urgently/e mergently in the setting of any new or worsening serious symptoms, shortness of breath, cough, chest pain, fever. [id number] Michael Askew MD [facility] [address] [place] [address] [phone] 0 08/09/2024 12:43:08 08/11/2024 21:43:20 Adult health examination [id number] Z00.00 [id number] Heaven Shields MD [facility] [address] [place] [address] [phone] 0 08/15/2024 12:37:31 08/15/2024 16:09:06 Headache 05003727 R51.9 With orthostati c hypotensio n and acute left-sided visual changes- r/o cva [id number] Nicki Fitch MD [facility] [address] [place] [address] [phone] 0 08/18/2024 20:25:20 08/18/2024 23:38:21 Increased blood pressure 23682962 R03.0 [id number] Rosendo Waters MD [facility] [address] [place] [address] [phone] 0 08/25/2024 17:56:43 08/25/2024 22:27:04 Anxiety 28085515 F41.9 [id number] Sarah Cooper MD [facility] [address] [place] [address] [phone] 0 09/24/2024 18:22:58 09/25/2024 00:15:05 Hypertensive urgency 789903610 I16.0 [id number] Amy Kennedy MD [facility] [address] [place] [address] [phone] 0 09/27/2024 12:58:11 09/27/2024 16:03:37 Essential hypertension 28446077 I10 Evaluation in the field was performed by my theatre instructor colleague, as noted above, I provided real-time direction and supervisio n for this visit. 64yo M chronic HTN on losartan p/w high BPs and fluctuatin g on home BP cuff. No arm differenti al, max 180/100. Denies chest pain or anginal equivalent s. On theatre instructor eval VS with BP 150s/90s on repeat measures. Recommend he con't current regimen and has cardiology f/up 09/30, bring BP cuff for calibratio n. For PCP: please recheck BP at next visit. We discussed the diagnostic uncertaint y of home visits and the risk associated with this. In this case, the patient and I felt this to be an acceptable and reasonable amount of risk given the benefit of avoiding an ED visit. We discussed the need to seek care urgently/e mergently in the setting of any new or worsening serious symptoms, shortness of breath, cough, chest pain, fever. [id number] MARZENA CALHOUN MD [facility] [address] [place] [address] [phone] 0 12/11/2024 20:52:44 12/12/2024 10:50:57 Thoracic back pain 344794227 M54.6 Evaluation in the field was performed by my theatre instructor colleague, as noted above, I provided real-time [...] was discharged on Methocarba mol and Naproxen.H hayley was seen again yesterday (no records available) and was given Valium and Oxycodone in the ER with relief. Walked 2 miles home after discharge, but pain has since worsened.H as Oxycodone and a muscle relaxer being delivered via [employer] on Sunday.C urrently taking Tylenol and Motrin.Las [...] by Organization Details LastModified Time None Recorded Advance Directives Directive None Recorded Payers Encounter Date Sequence Insurance Name Policy Number Policy Peralta Covered Member ID Peralta Member ID Guarantor Name 08/18/2024 1 [email or web address] - DOS ON OR AFTER 2023 - DUAL ELIGIBLE - CUSTODIAL OPTIONS AND ONE CARE (MEDICARE REPLACEMENT/ADV ANTAGE - HMO) Roberto Carlos Hall Jr [id number] Roberto Carlos Hall Jr 08/25/2024 1 [email or web address] - DOS ON OR AFTER 2023 - DUAL ELIGIBLE - CUSTODIAL OPTIONS AND ONE CARE (MEDICARE REPLACEMENT/ADV ANTAGE - HMO) Roberto Carlos Hall Jr [id number] Roberto Carlos Hall Jr 09/24/2024 1 [email or web address] - DOS ON OR AFTER 2023 - DUAL ELIGIBLE - CUSTODIAL OPTIONS AND ONE CARE (MEDICARE REPLACEMENT/ADV ANTAGE - HMO) Roberto Carlos Hall Jr [id number] Roberto Carlos Hall Jr 09/27/2024 1 [email or web address] - DOS ON OR AFTER 2023 - DUAL ELIGIBLE - CUSTODIAL OPTIONS AND ONE CARE (MEDICARE REPLACEMENT/ADV ANTAGE - HMO) Roberto Carlos Hall Jr [id number] Roberto Carlos Hall Jr 12/11/2024 1 [email or web address] - DOS ON OR AFTER 2023 - DUAL ELIGIBLE - CUSTODIAL OPTIONS AND ONE CARE (MEDICARE REPLACEMENT/ADV ANTAGE - HMO) Roberto Carlos Hall Jr [id number] Roberto Carlos Welch Isabel Castillo Notes Date Note Type Note Provider Name and Address Organization Details Recorded Time 08/18/2024 text/html [facility] Nurse Triage Notes (Aleida Gonsales): Chief Complaints: Headache, Hypertension PMH: COPD/Asthma, Severe Persistent Mental Illness (SPMI), Hypertension, Hyperlipidemia, Gastroesophageal Reflux Disease (GERD), Tonsillectomy, Appendectomy, Cholecystectomy Comments: Patient calling in to place a referral, identified via name and . PMH and allergies reviewed. Patient with an onset headache a few minutes prior to calling, and usually is attributed to his blood pressure being elevated. About 5 min his BP was 184/100. He has an appt tomorrow 08/19 at 9a with his PCP to discuss his regimen, as he only takes Losartan 25mg po in the morning. He was seen by us 08/15 for HTN, headache, dizziness, and blurry vision, he was sent to the ED and they said all his symptoms were due to his psych meds and he has an appt 08/28 with his psychiatrist to discuss. He denies any dizziness or vision issues at this time, denies chest pain, no sob, no left jaw, neck, shoulder or arm pain, no n/v. Off note he has shingles. Patient would like to be evaluated. ...................... ...................... ...................... ...................... ...................... ...................... ......... Power Transformer Repair Supervisor Note From Hood Renee: [facility] visit for male pt. Pt presents complaining of headache and noting high blood pressure on home machine. Reading of 180/100. Patient also noting minor headache but saying it improved since oral tylenol. Pt reports PCP visit tomorrow morning with PCP and recent hospitalization for dizziness, headache, blurred vision, and HTN. V/S taken as listed. Pt afebrile. Consulted with [facility] DR. Fitch who advised pt can continue to monitor symptoms and follow up with PCP. Reviewed red flags for ED. Pt education provided. ...................... ...................... ...................... ...................... ...................... ...................... ......... [facility] Consulted: Nicki Fitch ...................... ...................... ...................... ...................... ...................... ...................... ......... Disposition: Fulfilled Nicki Fitch MD [address] [place] [address],[address], [place], [phone], [email or web address] 08/18/2024 21:15:01 08/25/2024 text/html [facility] Nurse Triage Notes (Mynor Alexander): Reason For Request: Patient's blood pressure keeps going high and low., not stable, and he keeps testing it. Chief Complaints: Hypertension PMH: COPD/Asthma, Severe Persistent Mental Illness (SPMI), Hypertension, Hyperlipidemia, Gastroesophageal Reflux Disease (GERD), Tonsillectomy, Appendectomy, Cholecystectomy Comments: Pt reports flucuating blood pressures - 186/89 - Hx of same - Denies chest pain - Recently hospitalized for same -Baseline SOB - Pt was seen by [facility] on 08/18 same - Follow up visit requested - The evaluation revealed 64y M with HTN and acutely elevated BP. seen for same 4 days ago, referred to ER iso r/o HTN urgency, sent home with dx of polypharmacy w side effects. Today, BP is 180/90 here, was 180/100 on home machine earlier, no MARLOW, vision changes, shob, chest pain. he is sitting comfortably. Exam in resp and cardio WNL per medic. he has PCP f/u tomorrow. ...................... ...................... ...................... ...................... ...................... ...................... ......... Power Transformer Repair Supervisor Note From Rafa Rader: This 64-year-old male with a history including but not limited to COPD, depression, hypertension, hyperlipidemia, GERD, appendectomy, cholecystectomy [facility] and well known to myself. He requested a visit today to recheck his blood pressure because he was getting varying readings between is forearm cuff and his bicep cuff. For weeks he's been getting these ongoing feeling in his head ? f uzzy? feeling in his head he further describes it as it ? s moked a joint.? Patient showed me the readings from his bicep cough and they were consistently 140s to 150s systolic, mid 60s to mid 70s diastolic. He denies any current or recent chest pain, shortness of breath, dyspnea on exertion, headache, fever, nausea, vomiting, diarrhea, blurry vision.He presents awake and alert, in no acute distress, speaking full sentences. All vital signs are within normal limits and he is afebrile. Nonfocal neurological exam. Lungs are clear throughout auscultation. Abdomen is soft, nontender, nondistended. No lower extremity edema.I provided reassurance that his blood pressure is stable. I provided education on limits to his blood pressure and what readings would suggest emergency department. I instructed him to seek emergent medical care for new or worsening symptoms such as chest pain, shortness of breath, dyspnea on exertion, weakness or paresthesia to one side of the body, loss of bowel or bladder function, altered mental status, high fever. The patient was given the opportunity to ask questions and is agreeable to this plan. ...................... ...................... ...................... ...................... ...................... ...................... ......... [facility] Consulted: Tex Waters ...................... ...................... ...................... ...................... ...................... ...................... ......... Disposition: Fulfilled Rosendo Waters MD [address] [facility],[address], [place], [address], [email or web address] 08/25/2024 21:47:03 09/24/2024 text/html [facility] Nurse Triage Notes (Aleida Gonsales): Reason For Request: pt has migraine that wont go away, took a walk to the corner store and back started hurting out of nowhere with numbness going down left leg Chief Complaints: Back pain, Dizziness, Headache PMH: COPD/Asthma, Severe Persistent Mental Illness (SPMI), Hypertension, Hyperlipidemia, Gastroesophageal Reflux Disease (GERD), Tonsillectomy, Appendectomy, Cholecystectomy Comments: Patient calling in to place a referral, identified via name and . Patient back pain and migraine that started this afternoon. Per patient he has chronic back pain and history of migraines. He sees an orthopedic for his back who prescibes oxycontin for his back and migraines. He also did have a fall last week, had imaging done on Sunday, but does not have the results. Patient endorses the pain from his back going down his left leg, with some numbness. No loss of bowel/bladder, he has an appt with his specialist this month. He complains of his migraine giving his some blurry vision, no dizziness but a little lightheaded like he is going to fall, +nausea, no vomiting, denies any further weakness, numbness or tinging, denies chest pain, no shortness of breath. He would like to be evaluated. He is noted to sound well, in no acute distress. ...................... ...................... ...................... ...................... ...................... ...................... ......... Power Transformer Repair Supervisor Note From Finesse Mauricio: Dispatched to the call address for the male with back pain and a migraine. Pt states he has a Hx of back back but it is a lot worse today. He also states he has a migraine. He has been taking his medications as prescribed (Oxycodone and 800mg Ibuprofen) and last took a dose of each approx 3 hours ago. Pt states he has been having migraines for about 4 months now and is working with his doctor for them. He states he also had a fall a few days ago and had imaging done on Sunday but has not heard the results yet. Pt denies chest pain or difficulty breathing at this time.Pt was found sitting in bed, in no obvious/apparent distress, CAOx4, airway open and patent, breathing non labored, able to speak in full sentences, -JVD, -spinal stepoff/tenderness, -edema/swelling/bruisi ng to the area, Pt with full ROM, +CMSx4, pupils PERRL, skin PWD with good turgor, mucous membranes pink and moist. Pt was found to be hypertensive (he advises he does have HTN but it has been controlled). [facility] consulted. Pt advised to seek care in the ED to which he agreed-911 called. [place] [facility] (ARTIE) arrived onscene and transported to Pt to [facility] per his request. ALL times are approx. ...................... ...................... ...................... ...................... ...................... ...................... ......... [facility] Consulted: Sarah Cooper ...................... ...................... ...................... ...................... ...................... ...................... ......... Disposition: Everett Cooper MD [address] [facility],[address], [place], [address], [facility] 09/24/2024 18:25:39 09/27/2024 text/html [facility] Nurse Triage Notes (Mynor Alexander - RN): Reason For Request: Pt is reporting issues with BP> 154/88, 171/89 149/84, 162/92, 188/101 Denies: History of Heart Attack, in the setting of active chest pain Active Chest pain, radiates to neck jaw and or arm Diaphoretic/Sweating Describes as ? c rushing? Sudden onset of nausea/Vomiting and shortness of breath. Shortness of Breath Unable to speak in full sentences without distress Chief Complaints: Hypertension PMH: COPD/Asthma, Severe Persistent Mental Illness (SPMI), Hypertension, Hyperlipidemia, Gastroesophageal Reflux Disease (GERD), Tonsillectomy, Appendectomy, Cholecystectomy Comments: Track Template Maker verified the Pt.'s name//address and phone number. Education provided on the response time and the Pt. was advised to monitor reported s/s and seek emergency treatment if needed. Pt reports fluctuating blood pressures - Last Blood pressure - 181/101 & 154/88 - Obtained back to back - Headache - Dizziness - Denies chest pain - Denies SOB - Denies Fever - Denies N/V - Reports taking Losartan 50 mg as ordered @ 0700 - Cardiology appt is scheduled on 09/30. ...................... ...................... ...................... ...................... ...................... ...................... ......... Power Transformer Repair Supervisor Note From Hung Emery: Pt co hypertension. Pt sts is using home BP machine to test and the BP fluctuates up and down. Pt has appt with acls specialist Sunday. Pt denies cp sob dizziness NvD abdominal pain or blurry vision. Baseline vitals assessed, WNL, BP slight elevation. [facility] contacted and advised pt to bring his BP machine with him to cardiology appt to have recalibrated. Pt education on signs indicating the ER. Pt advised to follow ups it? s pcp or acls specialist. ...................... ...................... ...................... ...................... ...................... ...................... ......... [facility] Consulted: Amy Kennedy ...................... ...................... ...................... ...................... ...................... ...................... ......... Disposition: Fulfilled Amy Kennedy MD [address] [place] [address],[address], [place], [address], [email or web address] 09/27/2024 14:57:17 12/11/2024 text/html [facility] Nurse Triage Notes (Alyssa Cancino): Reason For Request: [facility] [...] (e.g., Hip, Knee)PMH Reviewed at 12/11/2024 - 20:10[facility] Reviewed at 12/11/2024 - 20:10Comments: Patient reports exacerbation of back pain. Was in ER for back pain yesterday. Was in ER twice last week after a fall. Was given Valium and Oxycodone in the ER with relief. Walked 2 miles home after d/c and pain has started to get worse again. Has Oxycodone and muscle relaxer being delivered by [employer] on Sunday.Taking Tylenol and Motrin. Patient is requesting visit for Toradol injection. Education provided on the response time and the member was advised to monitor reported s/s and seek emergency treatment if needed. ...................... ...................... ...................... ...................... ...................... ...................... ......... Power Transformer Repair Supervisor Note From Hood Renee: [facility] visit for male pt. Pt presents in [...] any ibuprofen until tomorrow. Pt education provided. [facility] Medication Orders: ketorolac 15 mg/mL injection solution: Administered ...................... ...................... ...................... ...................... ...................... ...................... ......... [facility] Consulted: Marzena Calhoun ...................... ...................... ...................... ...................... ...................... ...................... ......... Disposition: Fulfilled MARZENA CALHOUN MD [address] [facility],[address] [facility], [place], [address], [facility] - [facility]MENT 12/11/2024 22:50:25
--- OUTSIDE RECORDS SUMMARY | 2024-12-13 01:28 | XMS_ITS | Encounter Summary ---
Author Organization [facility] Address [address] [place] [address] Care Team Providers Care Linux System Admin Name Role Phone Juana Levy MD Primary Care Provider [phone] Heaven Sherman MD Primary Care Provider Unavaila Nawaf Rodriguez MD Unavailable [phone] Vanesa Juárez NP Unavailable [phone] Nicole Conroy Primary Care Provider Unavaildrew verdugo Encounter Details Date Type Department Care Team Description 12/06/2021 Bulk Gas Specialist Report Medical Records [address] [place] [address] Roberto Carlos Ordoñez Social History Tobacco Use [...] on filedocumented in this encounter Care Teams Linux System Admin Relationship Specialty Start Date End Date Juana Levy MD [address] [place] [address] PCP - General Internal Medicine 01/04/21 08/02/22 Heaven Sherman MD [address] [place] [address] PCP - General Internal Medicine 08/03/22 07/06/24 Nicole Conroy [address] [place] [address] [address] [place] [address] PCP - General Internal Medicine 07/07/24 Nawaf Austin MD [address] [place] [address] [address] [place], [place] [id number] Print Graphic Designer Cardiovascular Disease 02/06/23 Vanesa Juárez NP [address] [place] [address] [address] [place] [address] Nurse Practitioner Cardiology 07/07/24 documented as of this encounter
--- OUTSIDE RECORDS SUMMARY | 2024-12-13 01:28 | XMS_ITS | Encounter Summary ---
Author Organization [facility] Address [address] [place] [address] Care Team Providers Care Statistical Methods Professor Name Role Phone Hood Ernst MD Primary Care Provider Unavail able Heaven Sherman MD Primary Care Provider Unavaila lucina Cabrera Pcp Primary Care Provider UnavailHeaven Morales MD Primary Care Provider Unavaila ble Juana Levy MD Primary Care Provider [phone] Heaven Sherman MD Primary Care Provider Unavaila ble Nawaf Austin MD Unavailable [phone] Vanesa Juárez NP Unavailable [phone] Nicole Conroy Primary Care Provider Unavaila ble Encounter Details Date Type Department Care Team Description 07/08/2010 Wrapper Sorter Report Medical Records [address] [place] [address] Lazaro Duncan MD Social History Tobacco Use Types Packs/Day Years Used Date Smoking Tobacco: Former Cigarettes 1 30 Q uit: 11/29/2005 Alcohol Use Standard Drinks/Week Comments No 0 (1 standard drink = 0.6 oz pur e alcohol) 1/month Sex Assigned at Date Recorded Not on file documented as of this encounter Plan of Treatment Not on file documented as of this encounter Visit Diagnoses Not on filedocumented in this encounter Care Teams Statistical Methods Professor Relationship Specialty Start Date End Date Hood Ernst MD PCP - General 01/02/00 08/15/15 Heaven Sherman MD PCP - General Internal Medicine 08/16/15 12/11/16 [facility], Pcp PCP - General Internal Medicine 12/12/16 08/12/18 Heaven Sherman MD PCP - General Internal Medicine 08/13/18 01/03/21 Juana Levy MD [address] [place] [address] PCP - General Internal Medicine 01/04/21 08/02/22 Heaven Sherman MD [address] [place] [address] PCP - General Internal Medicine 08/03/22 07/06/24 Nicole Conroy [address] [place] [address] [address] [place] [address] PCP - General Internal Medicine 07/07/24 Nawaf Austin MD [address] [place] [address] [address] [place] [address] Founding Partner Cardiovascular Disease 02/06/23 Vanesa Juárez NP [address] [place] [address] [address] [place] [address] Nurse Practitioner Cardiology 07/07/24 documented as of this encounter
--- OUTSIDE RECORDS SUMMARY | 2024-12-13 01:28 | XMS_ITS | Encounter Summary ---
Author Organization [facility] Address [address] [place] [address] Care Team Providers Care Airways Operations Specialist Name Role Phone Heaven Sherman MD Primary Care Provider Emily Cabrera, Pcp Primary Care Provider Heaven Morales MD Primary Care Provider Unavaila Juana Markham MD Primary Care Provider [phone] Heaven Sherman MD Primary Care Provider Unavaila ble Nawaf Austin MD Unavailable [phone] Vanesa Juárez NP Unavailable [phone] Nicole Conroy Primary Care Provider Unavaila lucina Encounter Details Date Type Department Care Team Description 06/27/2016 Transfer Records Medical Records [address] [place] [address] Abstract, Provider Social History Tobacco Use Types [...] on filedocumented in this encounter Care Teams Airways Operations Specialist Relationship Specialty Start Date End Date Heaven Sherman MD PCP - General Internal Medicine 08/16/15 12/11/16 [facility], Pcp PCP - General Internal Medicine 12/12/16 08/12/18 Heaven Sherman MD PCP - General Internal Medicine 08/13/18 01/03/21 Juana Levy MD [address] [place] [address] PCP - General Internal Medicine 01/04/21 08/02/22 Heaven Sherman MD [address] [place] [address] PCP - General Internal Medicine 08/03/22 07/06/24 Nicole Conroy [address] [place] [address] [address] [place] [address] PCP - General Internal Medicine 07/07/24 Nawaf Austin MD [address] [place] [address] [address] [place] [address] Hurl Shaker Cardiovascular Disease 02/06/23 Vanesa Juárez NP [address] [place] [address] [address] [place] [address] Nurse Practitioner Cardiology 07/07/24 documented as of this encounter
--- OUTSIDE RECORDS SUMMARY | 2024-12-13 01:28 | XMS_ITS | Encounter Summary ---
Author Organization [facility] Address [address] [place] [address] Care Team Providers Care Cooper Helper Name Role Phone Heaven Sherman MD Primary Care Provider Emily Cabrera Pcp Primary Care Provider Heaven Morales MD Primary Care Provider Unavaila Juana Markham MD Primary Care Provider [phone] Heaven Sherman MD Primary Care Provider Unavaila Nawaf Rodriguez MD Unavailable [phone] Vanesa Juárez NP Unavailable [phone] Nicole Conroy Primary Care Provider Unavaila lucina Encounter Details Date Type Department Care Team Description 04/24/2016 Hospital Medical Records [address] [place] [address] Social History Tobacco Use Types Packs/Day Years [...] on filedocumented in this encounter Care Teams Cooper Helper Relationship Specialty Start Date End Date Heaven Sherman MD PCP - General Internal Medicine 08/16/15 12/11/16 [facility], Pcp PCP - General Internal Medicine 12/12/16 08/12/18 Heaven Sherman MD PCP - General Internal Medicine 08/13/18 01/03/21 Juana Levy MD [address] [place] [address] PCP - General Internal Medicine 01/04/21 08/02/22 Heaven Sherman MD [address] [place] [address] PCP - General Internal Medicine 08/03/22 07/06/24 Nicole Conroy [address] [place] [address] [address] [place] [address] PCP - General Internal Medicine 07/07/24 Nawaf Austin MD [address] [place] [address] [address] [place] [address] Interior Specialist Cardiovascular Disease 02/06/23 Vanesa Juárez NP [address] [place] [address] [address] [place] [address] Nurse Practitioner Cardiology 07/07/24 documented as of this encounter
--- OUTSIDE RECORDS SUMMARY | 2024-12-13 01:28 | XMS_ITS | Encounter Summary ---
Author Organization [facility] Address [address] [place] [address] Care Team Providers Care Panelboard Tank Pumper Name Role Phone Heaven Sherman MD Primary Care Provider Unavaila ble Deborah, Pcp Primary Care Provider UnavailHeaven Morales MD Primary Care Provider Unavaila ble Juana Levy MD Primary Care Provider [phone] Heaven Sherman MD Primary Care Provider Unavaila ble Nawaf Austin MD Unavailable Vanesa Juárez NP Unavailable [phone] Nicole Conroy Primary Care Provider Unavaila ble Reason for Referral * Non AIDA (Urgent) - Authorized/Booked Specialty Diagnoses / Procedures Referred By Mary Grace ugalde Referred To Contact Cardiology Procedures REFERRAL TO CARDIOLOGY Heaven Sherman MD [address] [place] [address] Cardio/[address] [id number] Referral ID Status Reason Start Date Expiration Date V isits Requested Visits Authorized NOT REQUIRED Authorized/ Booked 07/21/2016 07/21/2017 1 1 Encounter Details Date Type Department Care Team Description 07/21/2016 Orders Only Adult Medicine [address] [address] Heaven Sherman MD Abnormal stress test (Primary Dx) Social History Tobacco Use Types Packs/Day Years [...] as of this encounter Visit Diagnoses Diagnosis Abnormal stress test- Primary Other nonspecific abnormal cardiovascular system function study documented in this encounter Care Teams Panelboard Tank Pumper Relationship Specialty Start Date End Date Heaven Sherman MD PCP - General Internal Medicine 08/16/15 12/11/16 [facility] PCP - General Internal Medicine 12/12/16 08/12/18 Heaven Sherman MD PCP - General Internal Medicine 08/13/18 01/03/21 Juana Levy MD [address] [place] [address] PCP - General Internal Medicine 01/04/21 08/02/22 Heaven Sherman MD [address] [place] [address] PCP - General Internal Medicine 08/03/22 07/06/24 Nicole Conroy [address] [place] [address] [address] [place] [address] PCP - General Internal Medicine 07/07/24 Nawaf Austin MD [address] [place] [address] [place] [address] [employer] Cardiovascular Disease 02/06/23 Vanesa Juárez NP [address] [place] [address] [address] [place] [address] Nurse Practitioner Cardiology 07/07/24 documented as of this encounter
[2024-12-13 01:36] VITALS: BP 152/68; PULSE 76; RESP 12; TEMP 36.6; O2SAT 99
--- NOTE | 2024-12-13 01:40 | PC.NURSE ---
Pt is a&ox4, no signs of distress. Pt reports chronic 10/10 mid lower back pain that radiates to LLE Plan of care ongoing.
--- NOTE | 2024-12-13 02:05 | ED_ITS ---
HPI - General Adult General Chief complaint: Back Pain/Injury Stated complaint: excaberation of back pain Time Seen by Provider: 12/13/24 02:00 Source: patient Limitations: no limitations History of Present Illness ED Provider: Leatha Mcginnis PA-C HPI narrative: 64-year-old male with a history of chronic back pain, morbid obesity, on chronic opiate therapy, presents with back pain. Patient states he was getting ready for bed when his pain acutely became worse, pain primarily left-sided with radiation down the left lower extremity. Associated paresthesia at times. Denies weakness of lower extremities, saddle anesthesia, urinary retention or bowel incontinence. Patient had no preceding mechanism of injury. Patient self admits that his oxycodone we will be delivered to his home this morning, that he ran out of his medications yesterday. Related Data Previous Rx's ?Medication ?Instructions ?Recorded methylprednisolone 4 mg tablets in 4 mg PO QAM #21 ea 12/13/24 a dose pack (Medrol ([facility])) Allergies Allergy/AdvReac Type Severity Reaction Status Date / Time Iodinated Contrast Media Allergy Anaphylaxis Verified 12/12/24 22:01 [Contrast Dye] Review of Systems Review of Systems: Yes all other systems are reviewed and are negative Constitutional: Constitutional: Denies fatigue and Denies fever(s) Cardiovascular: Cardiovascular: Denies chest pain and Denies dyspnea Respiratory: Respiratory: Denies cough and Denies dyspnea Gastrointestinal: Gastrointestinal: Denies abdominal pain Musculoskeletal: Musculoskeletal: Reports back pain, Denies muscle weakness, Denies numbness, Reports radiating pain into limb and Reports tingling Neurologic: Denies numbness and Reports tingling Endocrine: Endocrine: Denies fatigue PMFSH Past Medical History Attestation statement: The following information was validated with the patient. Social History Social History Smoked in Last 30 Days: No Use of substances other than those prescribed or required for medical reasons: No Advance Directives: No Advance Directives Information Provided: Yes Do you have a plan to hurt others: No Plan Physical Exam ED Vital Signs: Vital Signs - 24 hr 12/12/24 21:58 12/13/24 01:36 Temperature 98.8 F 97.9 F Pulse Rate 89 76 Respiratory Rate 20 12 Blood Pressure 168/72 H 152/68 H Pulse Oximetry 99 99 Oxygen Delivery Method Room Air Room Air BMI result Body Mass Index 42.8 Const Other: Alert appears older than stated age Orientation/consciousness: patient oriented x3 Resp Effort & Inspection: normal respiratory effort Cardio Other: Normal peripheral perfusion Skin Other: Warm dry no rash Neuro General: patient oriented x3, gait normal, no focal motor deficits and CN's II- XI intact bilaterally Extrem Other: Strength 5/5 bilateral lower extremities with resistance, the patient was ambulatory with a normal gait Psych Other: Cooperative Medical Decision Making Medical Decision Making MDM Narrative: 64-year-old male with a history of chronic back pain, morbid obesity, on chronic opiate therapy, presents with back pain. Patient states he was getting ready for bed when his pain acutely became worse, pain primarily left-sided with radiation down the left lower extremity. Associated paresthesia at times. Denies weakness of lower extremities, saddle anesthesia, urinary retention or bowel incontinence. Patient had no preceding mechanism of injury. Patient self admits that his oxycodone we will be delivered to his home this morning, that he ran out of his medications yesterday. Problem: Obesity, chronic pain, chronic opiate therapy History: Per patient I have considered the following differential diagnoses: Lumbar strain, lumbar radiculopathy, cauda equina, medication seeking behavior Plan: Patient was chronic pain on chronic opiate therapy, he does not have a mechanism of injury overnight. Furthermore, he admits to running out of his prescription pain medication yesterday. This is concerning and suspicious behavior. To note he has no red flag signs symptoms concerning for cord compression. We will be giving the patient a 1 time dose of a muscle relaxant and Toradol. We will be sending a steroid taper to his pharmacy. No indication for labs or imaging Discharge Plan Discharge Clinical Impression: Chronic lumbar pain Patient Disposition: Home, Self-Care Instructions: Chronic Pain (ED), Chronic Back Pain (DC), Lower Back Exercises (ED) Additional Instructions: I am sending a steroid taper to your pharmacy, uses medication as an anti- inflammatory, take it in the morning. See home care instructions for your chronic pain. Continue to follow up with your healthcare providers. Prescriptions: New methylprednisolone [Medrol ([facility])] 4 mg tablets,dose pack 4 mg PO QAM Qty: 21 0RF Rx Instructions: Use the steroid taper per package instructions Print Language: E[place]
[2024-12-13] MEDS: methocarbamoL 750 MG TABLET 1500 MG PO (02:27)
[2024-12-13] MEDS: Ketorolac Tromethamine 15 MG/ML VIAL IM (02:27)
--- NOTE | 2024-12-13 02:32 | PC.NURSE ---
Pt medicated per dec Pt requested and given urinal Plan of care ongoing.
[2024-12-13 03:03] VITALS: BP 152/68; PULSE 76; RESP 12; TEMP 36.6; O2SAT 99
== END 2024-12-13 03:24 | disposition home or self-care (01) ==
PROVIDERS: Emergency Provider Internal Medicine; PCP Internal Medicine
DX: G89.29 Other chronic pain (principal); M54.50 Low back pain, unspecified
CPT/HCPCS: 96372; 99284; J1885